=== PATIENT | female | born 1990 | race African-American/Black ===

== ENCOUNTER 2021-03-03 13:30 | Outpatient (RCR) | payer OTHER, SELFPAY ==
--- NOTE | 2020-05-13 17:00 | PT.OIE ---
Current Diagnoses Other specified disorders of muscle (05/13/20) Stress incontinence (female) (male) (05/13/20) Abnormal posture (05/13/20) Past Medical History (Last Updated 01/30/20 @ 09:35 by Abdelrahman Palumbo MD) (Acute) SIMONA (stress urinary incontinence, female) (Acute) Visit Care Team Role Provider Type Amy Sanchez DO Primary Care Provider Physician Specialty: Family Practice Address: [address] [place] [address], [address], [address] Email: [email or web address] Abdelrahman Palumbo MD Attending Provider Physician Referring Provider Specialty: HIM SPECIALIST Address: [address] [place] [address], [id number] Email: [email or web address] Physical Therapy Initial Evaluation PT-OP-A Visit Information Start: 05/09/20 21:10 Freq: Status: Active Protocol: Document 05/13/20 08:57 LRN (Rec: 05/13/20 09:52 LRN [id number]) Out-Patient Physical Therapy Visit Information Visit Information Visit Type Initial Evaluation Visit Start Time 08:57 Visit Stop Time 09:52 Total Visit Minutes 55 Visit Number 1 Evaluation Information Evaluation Date 05/13/20 Precautions Precautions None PT-OP-B Current Condition Start: 05/09/20 21:10 Freq: Status: Active Protocol: Document 05/13/20 08:57 LRN (Rec: 05/13/20 09:52 LRN [id number]) Current Condition History of Current Condition Onset Date 06/2018 History of Current Condition Childbirth of son in 04/2018 with a lot of tearing. Currently notices leakage with strong urge while trying to get into her house and after running. Sometimes she leaks during running, but mainly immediately afterwards. She is running 2x/week for 2-3 miles (1/2 hour). Was occasionally running before (2-3x/month, 1-2 miles). Denies constipation and denies leakage with cough or sneeze or activity when no urge is present. Leakage only with strong urge, Prior Treatments and Tests None Developmental History Developmental History See above Treatment Goals Patient/Caregiver Goals Goal is to have more control of her urine and to not wet underwear when trying to control urine. Prior Functional Status Baseline Function- ADL's Independent Baseline Function- Mobility Independent Baseline Function- Recreation/Hobbies Ran 2-3x/month, 1-2 mile runs. Current Functional Impairments (Reported) Functional Limitations- ADL's Unable to control urine with a strong urge. 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 Functional Limitations- Recreation/ Trickle of urinary leakage Hobbies during running and not able to maintain continence after running or if drinking water after running. 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 Stopped 2 weeks ago, milk production still present. PT-OP-C Subjective Start: 05/09/20 21:10 Freq: Status: Active Protocol: Document 05/13/20 08:57 LRN (Rec: 05/13/20 18:37 LRN [id number]) Patient Questionnaires Pelvic Pain and Urgency/Frequency Patient Symptom Scale Pelvic Pain Score 8 PT-OP-G Mobility & Gait Start: 05/09/20 21:10 Freq: Status: Active Protocol: Document 05/13/20 08:57 LRN (Rec: 05/13/20 18:37 LRN [id number]) OP Mobility Evaluation Transfers Bed to Chair Transfers Transfers to supine by lying straight back and to sitting by a sit up motion. PT-OP-I Pelvic Floor Start: 05/09/20 21:10 Freq: Status: Active Protocol: Document 05/13/20 08:57 LRN (Rec: 05/13/20 18:37 LRN [id number]) Pelvic Floor Assessment Urine Pelvic Floor Surgery Yes: For tearing of PF during childbirth 04/2018. Urinary Symptoms Urge Sensation Other Urinary Symptoms Strains to pass urine. Leakage Size Large Leakage Cause Exercise Other Leakage Causes Running, water after a long drive or walk or run. Leaks Per Day 8-10 Voiding Frequency 8-10 times per day Nocturia 1-2 times Pads Used In 24 Hours none Bowel Bowel Surgery No: Denies constipation Bowel Symptoms Uncontrolled Flatulence Pelvic Clock Pelvic Clock 12-3 Atrophy Pelvic Clock 3-6 Atrophy Pelvic Clock 6-9 Atrophy Pelvic Clock 9-12 Atrophy Pelvic Clock Other Lift felt in L vaginal wall only Perineal Descent Resting Absent Bearing Absent Contraction Ability Voluntary Contraction Weak Manual Muscle Testing Left 2 Manual Muscle Testing Right 0 Manual Muscle Testing Anterior 0 Manual Muscle Testing Posterior 1 Muscle Endurance (Seconds) 5 Number of Quick Contractions In 10 2 Seconds Comments Pelvic Floor Comments Plump tissues, mildly dry. PT-OP-J Posture/Palpation/Skin Start: 05/09/20 21:10 Freq: Status: Active Protocol: Document 05/13/20 08:57 LRN (Rec: 05/13/20 18:37 LRN [id number]) Posture Evaluation Position Standing Evaluation View All positions Head/C-Spine Posture Side Bent Left L-Spine Posture Rotation Right,Increased Lordosis Shoulder Posture (L) Elevated Pelvis Posture Anteriorly Tilted Knee Posture (L) Genu Valgus,(R) Genu Valgus Foot Arch (L) No Arch,(R) No Arch PT-OP-K Range of Motion Start: 05/09/20 21:10 Freq: Status: Active Protocol: Document 05/13/20 08:57 LRN (Rec: 05/13/20 09:52 LRN [id number]) Lumbar Spine Range of Motion Lumbar Spine Active Percentage Testing Position Standing Hip Goniometric Range of Motion Hip Right Passive Testing Position Supine Flexion w/Knee Flexed 130 Straight Leg Raise 75 Abduction 35 Internal Rotation 30 External Rotation 73 Left Passive Testing Position Supine Flexion w/Knee Flexed 130 Straight Leg Raise 75 Abduction 45 Internal Rotation 30 External Rotation 80 PT-OP-M Strength Start: 05/09/20 21:10 Freq: Status: Active Protocol: Document 05/13/20 08:57 LRN (Rec: 05/13/20 18:37 LRN [id number]) Trunk Strength Trunk Manual Muscle Testing Testing Position Supine Rotation Right 3- Fair- Core Stabilization Pt shows reduced ability to maintain neutral core with MMT of L hip flexion. Hip Strength Hip Manual Muscle Testing Right Adduction 4- Good- External Rotation 4 Good Internal Rotation 3 Fair Left Flexion (L2) 4+ Good+ Adduction 3+ Fair+ External Rotation 4 Good Internal Rotation 3 Fair PT-OP-Q Treatments Start: 05/09/20 21:10 Freq: Status: Active Protocol: Document 05/13/20 08:57 LRN (Rec: 05/13/20 09:52 LR [id number]) Self-Care/Home Management Treatment Education Patient Education Home Exercise Program,Joint Protection Other Education Discussed results of findings with pt and discussed pt goals . Issued Bladder Diary. Discussed use of Bladder Diary and I/S pt in filling diary over the next week. Discussed running activity and recommended pt hold running for walking. Discussed effects on the body of hormonal changes while pt is producing breastmilk. Discussed shoe wear briefly. Education in PF with model used Activities Self-Care/Home Management Activities Pt issued HEP of Kegel ex's for Quick Flicks and Long holds after parameters for exercise determined. PT-OP-T Assessment and Plan Start: 05/09/20 21:10 Freq: Status: Active Protocol: Document 05/13/20 08:57 LRN (Rec: 05/13/20 09:52 LR [id number]) Physical Therapy Assessment Rehab Potential Rehabilitation Potential Good Evaluation Complexity Number of Personal Factors/Comorbidities 1-2 Number of Body Systems Impaired 4 or More Clinical Presentation at Evaluation Evolving Impairments Impairments Activity Tolerance,Posture,ROM ,Soft Tissue Mobility,Strength ,Tone Other Impairments Hormonal changes due to . Goals Six Impairment Poor knowledge of proper transfers and clothing wear to minimize UI. Short Term Goal (STG) Pt will be educated in proper transfers and clothing to minimize onset of Urinary Incontinence. STG Duration 05/21/20 Five Impairment Decreased PF endurance of 5 sec's in supine Drosophere Operator Goal (LTG) Improve PF endurance to 10 sec 's in supine. LTG Duration 07/26/20 Four Impairment Decreased PF strength rated 2/ 5 in supine Drosophere Operator Goal (LTG) Improve PF strength to 3/5 in supine. LTG Duration 07/26/20 Three Impairment Poor core stability due to severe Diastasis Rectus. Short Term Goal (STG) Pt will be educated in proper transfers and use of K-tape to assist with DR closure through self management. Drosophere Operator Goal (LTG) Pt will demonstrate reduced DR and will be able to perform an automatic and on command TA contraction. (DR: Above umbilicus: 5 above is closed at Xyphoid Process; 4 above is 1.5 finger widths; 3 above is 2.5 finger widths, 2 above is 3 finger widths, 1 above is 3.t finger widths. Below umbilicus: 4 is closed; 3 0. 5 finger widths; 2 is 2.5 finger widths; 1 is 3.5 finger widths). LTG Duration 07/26/20 Two Impairment Poor management of Urge incontinence Short Term Goal (STG) Pt will be educated in Urge incontinence and bladder retraining. Drosophere Operator Goal (LTG) Pt will be able to make it to the bathroom at work and home with minimal to no urinary leakage. LTG Duration 07/26/20 One Impairment Lacks self care HEP Detention Goal (LTG) Pt will be independent with a self care HEP to promote hip and core strength and PF mobility. LTG Duration 07/26/20 Assessment Summary Assessment Pt presents with symtoms of urge incontinence due to PF weakness and poor core stability due to DR & decreased hip strength. The pt is not able to isolate a PF strength and is using substitute muscles to assist with PF strength. The pt will benefit from skilled physical therapy for education, bladder retraining and strengthening to minimize symptoms of urge incontinence. Physical Therapy Plan Frequency and Duration Frequency of Treatment 1x/Week Plan of Care Start Date 05/13/20 Plan of Care End Date 07/26/20 Therapeutic Interventions Therapeutic Interventions Home Exercise Program,Manual Therapy,Neuromuscular Re- education,Patient/Caregiver Education,Self-Care/Home Management,Soft Tissue Mobilization,Taping, Therapeutic Exercises Modalities Electric Stimulation Next Visit Focus/Plan Next Note Type Treatment Note Next Visit Plan Review Bladder Diary Educate in proper deep breathing and urinary delay technique, Educate pt on proper transfers and clothing wear, Educate pt in self K-taping, TA strengthening to prevent doming, HEP for improving hip & TA strength
--- NOTE | 2020-05-13 17:00 | PT.OPPOC ---
Physical, Occupational & Speech Therapy At [facility] Current Diagnoses Other specified disorders of muscle (05/13/20) Stress incontinence (female) (male) (05/13/20) Abnormal posture (05/13/20) Visit Care Team Role Provider Type Amy Sanchez DO Primary Care Provider Physician Specialty: Family Practice Address: [address] [place] [address], [address], [address] Email: [email or web address] Abdelrahman Palumbo MD Attending Provider Physician Referring Provider Specialty: PRISON GUARD SUPERVISOR Address: [address] [place] [address] [place] [address], [id number] Email: [email or web address] Plan Of Care PT-OP-T Assessment and Plan Start: 05/09/20 21:10 Freq: Status: Active Protocol: Document 05/13/20 08:57 LRN (Rec: 05/13/20 09:52 LRN [id number]) Physical Therapy Assessment Rehab Potential Rehabilitation Potential Good Evaluation Complexity Number of Personal Factors/Comorbidities 1-2 Number of Body Systems Impaired 4 or More Clinical Presentation at Evaluation Evolving Impairments Impairments Activity Tolerance,Posture,ROM ,Soft Tissue Mobility,Strength ,Tone Other Impairments Hormonal changes due to . Goals Six Impairment Poor knowledge of proper transfers and clothing wear to minimize UI. Short Term Goal (STG) Pt will be educated in proper transfers and clothing to minimize onset of Urinary Incontinence. STG Duration 05/21/20 Five Impairment Decreased PF endurance of 5 sec's in supine Sampling Theory Teacher Goal (LTG) Improve PF endurance to 10 sec 's in supine. LTG Duration 07/26/20 Four Impairment Decreased PF strength rated 2/ 5 in supine Fpc Goal (LTG) Improve PF strength to 3/5 in supine. LTG Duration 07/26/20 Three Impairment Poor core stability due to severe Diastasis Rectus. Short Term Goal (STG) Pt will be educated in proper transfers and use of K-tape to assist with DR closure through self management. Sampling Theory Teacher Goal (LTG) Pt will demonstrate reduced DR and will be able to perform an automatic and on command TA contraction. (DR: Above umbilicus: 5 above is closed at Xyphoid Process; 4 above is 1.5 finger widths; 3 above is 2.5 finger widths, 2 above is 3 finger widths, 1 above is 3.t finger widths. Below umbilicus: 4 is closed; 3 0. 5 finger widths; 2 is 2.5 finger widths; 1 is 3.5 finger widths). LTG Duration 07/26/20 Two Impairment Poor management of Urge incontinence Short Term Goal (STG) Pt will be educated in Urge incontinence and bladder retraining. Fpc Goal (LTG) Pt will be able to make it to the bathroom at work and home with minimal to no urinary leakage. LTG Duration 07/26/20 One Impairment Lacks self care HEP Sampling Theory Teacher Goal (LTG) Pt will be independent with a self care HEP to promote hip and core strength and PF mobility. LTG Duration 07/26/20 Assessment Summary Assessment Pt presents with symtoms of urge incontinence due to PF weakness and poor core stability due to DR & decreased hip strength. The pt is not able to isolate a PF strength and is using substitute muscles to assist with PF strength. The pt will benefit from skilled physical therapy for education, bladder retraining and strengthening to minimize symptoms of urge incontinence. Physical Therapy Plan Frequency and Duration Frequency of Treatment 1x/Week Plan of Care Start Date 05/13/20 Plan of Care End Date 07/26/20 Therapeutic Interventions Therapeutic Interventions Home Exercise Program,Manual Therapy,Neuromuscular Re- education,Patient/Caregiver Education,Self-Care/Home Management,Soft Tissue Mobilization,Taping, Therapeutic Exercises Modalities Electric Stimulation Next Visit Focus/Plan Next Note Type Treatment Note Next Visit Plan Review Bladder Diary Educate in proper deep breathing and urinary delay technique, Educate pt on proper transfers and clothing wear, Educate pt in self K-taping, TA strengthening to prevent doming, HEP for improving hip & TA strength Plan of Care Dates Plan of Care Start Date 05/13/20 Plan of Care End Date 07/26/20 Electronically Signed by: Lena Myers, PT 05/16/20 [id number] Please Sign and Return: I have reviewed this Plan of Care and certify that the skilled therapy services above are required to meet the patient?s needs. Physician Signature Date Printed Name and Credentials Clinical Instructor Signature Printed Name and Credentials
--- NOTE | 2020-05-20 17:02 | PT.OTN ---
Current Diagnoses Other specified disorders of muscle (05/20/20) Stress incontinence (female) (male) (05/20/20) Abnormal posture (05/20/20) Physical Therapy Treatment Note PT-OP-A Visit Information Start: 05/09/20 21:10 Freq: Status: Active Protocol: Document 05/20/20 10:32 LRN (Rec: 05/20/20 11:21 LRN [id number]) Out-Patient Physical Therapy Visit Information Visit Information Visit Type Treatment Note Visit Start Time 10:32 Visit Stop Time 11:21 Total Visit Minutes 49 Visit Number 2 Evaluation Information Evaluation Date 05/13/20 Precautions Precautions None PT-OP-B Current Condition Start: 05/09/20 21:10 Freq: Status: Active Protocol: Document 05/13/20 08:57 LRN (Rec: 05/13/20 09:52 LRN [id number]) Current Condition History of Current Condition Onset Date 06/2018 History of Current Condition Childbirth of son in 04/2018 with a lot of tearing. Currently notices leakage with strong urge while trying to get into her house and after running. Sometimes she leaks during running, but mainly immediately afterwards. She is running 2x/week for 2-3 miles (1/2 hour). Was occasionally running before (2-3x/month, 1-2 miles). Denies constipation and denies leakage with cough or sneeze or activity when no urge is present. Leakage only with strong urge, Prior Treatments and Tests None Developmental History Developmental History See above Treatment Goals Patient/Caregiver Goals Goal is to have more control of her urine and to not wet underwear when trying to control urine. Prior Functional Status Baseline Function- ADL's Independent Baseline Function- Mobility Independent Baseline Function- Recreation/Hobbies Ran 2-3x/month, 1-2 mile runs. Current Functional Impairments (Reported) Functional Limitations- ADL's Unable to control urine with a strong urge. 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 Functional Limitations- Recreation/ Trickle of urinary leakage Hobbies during running and not able to maintain continence after running or if drinking water after running. 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 Stopped 2 weeks ago, milk production still present. PT-OP-C Subjective Start: 05/09/20 21:10 Freq: Status: Active Protocol: Document 05/20/20 10:32 LRN (Rec: 05/20/20 11:21 LRN [id number]) OP-PT Subjective Patient Comments Patient Comments Delay ex worked, only leaked a little bit, at work or when dealing with son. PT-OP-G Mobility & Gait Start: 05/09/20 21:10 Freq: Status: Active Protocol: Document 05/13/20 08:57 LRN (Rec: 05/13/20 18:37 LRN [id number]) OP Mobility Evaluation Transfers Bed to Chair Transfers Transfers to supine by lying straight back and to sitting by a sit up motion. PT-OP-I Pelvic Floor Start: 05/09/20 21:10 Freq: Status: Active Protocol: Document 05/13/20 08:57 LRN (Rec: 05/13/20 18:37 LRN [id number]) Pelvic Floor Assessment Urine Pelvic Floor Surgery Yes: For tearing of PF during childbirth 04/2018. Urinary Symptoms Urge Sensation Other Urinary Symptoms Strains to pass urine. Leakage Size Large Leakage Cause Exercise Other Leakage Causes Running, water after a long drive or walk or run. Leaks Per Day 8-10 Voiding Frequency 8-10 times per day Nocturia 1-2 times Pads Used In 24 Hours none Bowel Bowel Surgery No: Denies constipation Bowel Symptoms Uncontrolled Flatulence Pelvic Clock Pelvic Clock 12-3 Atrophy Pelvic Clock 3-6 Atrophy Pelvic Clock 6-9 Atrophy Pelvic Clock 9-12 Atrophy Pelvic Clock Other Lift felt in L vaginal wall only Perineal Descent Resting Absent Bearing Absent Contraction Ability Voluntary Contraction Weak Manual Muscle Testing Left 2 Manual Muscle Testing Right 0 Manual Muscle Testing Anterior 0 Manual Muscle Testing Posterior 1 Muscle Endurance (Seconds) 5 Number of Quick Contractions In 10 2 Seconds Comments Pelvic Floor Comments Plump tissues, mildly dry. PT-OP-J Posture/Palpation/Skin Start: 05/09/20 21:10 Freq: Status: Active Protocol: Document 05/13/20 08:57 LRN (Rec: 05/13/20 18:37 LRN [id number]) Posture Evaluation Position Standing Evaluation View All positions Head/C-Spine Posture Side Bent Left L-Spine Posture Rotation Right,Increased Lordosis Shoulder Posture (L) Elevated Pelvis Posture Anteriorly Tilted Knee Posture (L) Genu Valgus,(R) Genu Valgus Foot Arch (L) No Arch,(R) No Arch PT-OP-K Range of Motion Start: 05/09/20 21:10 Freq: Status: Active Protocol: Document 05/13/20 08:57 LRN (Rec: 05/13/20 09:52 LRN [id number]) Lumbar Spine Range of Motion Lumbar Spine Active Percentage Testing Position Standing Hip Goniometric Range of Motion Hip Right Passive Testing Position Supine Flexion w/Knee Flexed 130 Straight Leg Raise 75 Abduction 35 Internal Rotation 30 External Rotation 73 Left Passive Testing Position Supine Flexion w/Knee Flexed 130 Straight Leg Raise 75 Abduction 45 Internal Rotation 30 External Rotation 80 PT-OP-M Strength Start: 05/09/20 21:10 Freq: Status: Active Protocol: Document 05/13/20 08:57 LRN (Rec: 05/13/20 18:37 LRN [id number]) Trunk Strength Trunk Manual Muscle Testing Testing Position Supine Rotation Right 3- Fair- Core Stabilization Pt shows reduced ability to maintain neutral core with MMT of L hip flexion. Hip Strength Hip Manual Muscle Testing Right Adduction 4- Good- External Rotation 4 Good Internal Rotation 3 Fair Left Flexion (L2) 4+ Good+ Adduction 3+ Fair+ External Rotation 4 Good Internal Rotation 3 Fair PT-OP-Q Treatments Start: 05/09/20 21:10 Freq: Status: Active Protocol: Document 05/20/20 10:32 LRN (Rec: 05/20/20 11:21 LRN [id number]) Therapeutic Exercises Supine Exercises TA Supine Exercise Name TA strengthening and awareness training Side bilateral Comments Training w/head lift to identify weakness and when to stop ex Sidelying Exercises TA Sidelying Exercise Name TA strengthening & awareness training Side bilateral Therapeutic Activity Therapeutic Activity Transfer sit <-> supine Name Sit<->Supine with strap for abdominal bracing for DR protection Reps/Minutes 12' Comments Identifying proper method for protection of DR with transfer and use of wrap to abdomen. Self-Care/Home Management Treatment Education Patient Education Home Exercise Program Other Education Reviewed at length pt's Bladder Diary for 7 days. Discussion of daily changes: like increasing fluids and decreasing bladder irritants ( caffeine, carbonated beverages , etc...), breathing with abdominal compression movements, increasing fluids earlier in the day, not delaying when first getting up in mornings. Activities Self-Care/Home Management Activities I/S pt in TA strengthening with handout issued: Pelvic Brace w/Daily Activities, Management of Lower Abdominal Progression, Towel use for head lifts to protect DR. PT-OP-T Assessment and Plan Start: 05/09/20 21:10 Freq: Status: Active Protocol: Document 05/20/20 10:32 LRN (Rec: 05/20/20 11:21 LRN [id number]) Physical Therapy Assessment Goals Six Impairment Poor knowledge of proper transfers and clothing wear to minimize UI. Short Term Goal (STG) Pt will be educated in proper transfers and clothing to minimize onset of Urinary Incontinence. STG Duration 05/21/20 (05/21/20: Partially met, discussed transfers) Five Impairment Decreased PF endurance of 5 sec's in supine Primer Powder Blender Wet Goal (LTG) Improve PF endurance to 10 sec 's in supine. LTG Duration 07/26/20 Four Impairment Decreased PF strength rated 2/ 5 in supine Snf Goal (LTG) Improve PF strength to 3/5 in supine. LTG Duration 07/26/20 Three Impairment Poor core stability due to severe Diastasis Rectus. Short Term Goal (STG) Pt will be educated in proper transfers and use of K-tape to assist with DR closure through self management. STG Duration 05/27/20 (05/20/20: Partially met, educated in proper transfers) Primer Powder Blender Wet Goal (LTG) Pt will demonstrate reduced DR and will be able to perform an automatic and on command TA contraction. (DR: Above umbilicus: 5 above is closed at Xyphoid Process; 4 above is 1.5 finger widths; 3 above is 2.5 finger widths, 2 above is 3 finger widths, 1 above is 3.t finger widths. Below umbilicus: 4 is closed; 3 0. 5 finger widths; 2 is 2.5 finger widths; 1 is 3.5 finger widths). LTG Duration 07/26/20 Two Impairment Poor management of Urge incontinence Short Term Goal (STG) Pt will be educated in Urge incontinence and bladder retraining. STG Duration GOAL MET. Snf Goal (LTG) Pt will be able to make it to the bathroom at work and home with minimal to no urinary leakage. LTG Duration 07/26/20 One Impairment Lacks self care HEP Primer Powder Blender Wet Goal (LTG) Pt will be independent with a self care HEP to promote hip and core strength and PF mobility. LTG Duration 07/26/20 (05/20/20: Progressing) Progress Towards Goals Progress Comments Goal 1: Progressing, issue HEP for TA strengthening. Goal 2: STG: GOAL MET for educating pt in urge deference techinque. Goal 3: STG: Partially MET. Pt educated in proper sup<-> sit transfer to protect DR/ Core stability. Goal 6: Partially MET. Pt educated in proper sup <-> sit transfers. Assessment Summary Assessment Pt demonstrates very good deep breathing technique. She shows good understanding of proper transfer to protect DR using towel/strap support. Further review needed for sit/ floor to stand. Per Bladder Diary it appears the pt has small leaks first in AM due to choosing to engage with child before voiding and with intake of bladder irritants ( coffee), but overall shows voiding ~2-4 hours, usually with urge. She is now able to avoid a majority of urinary leakage using the urge deference technique. Clothing may be restrictive as well as poor breathwork may be contributing to her UI. Further protection of DR needed, possible use of K-tape will be helpful although pt is still . Physical Therapy Plan Frequency and Duration Frequency of Treatment 1x/Week Plan of Care Start Date 05/13/20 Plan of Care End Date 07/26/20 Next Visit Focus/Plan Next Note Type Treatment Note Next Visit Plan Review proper transfer sit/ floor <-> stand with proper breathwork Educate pt on proper clothing wear (for STG #6), EMG biofeedback was not available during therapy; therefore will need to assess next treatment, Educate pt in self K-taping, TA strengthening progression to prevent doming, HEP for improving hip & TA strength
--- NOTE | 2020-05-27 18:11 | PT.OTN ---
Current Diagnoses Other specified disorders of muscle (06/17/20) Stress incontinence (female) (male) (06/17/20) Abnormal posture (06/17/20) Physical Therapy Treatment Note PT-OP-A Visit Information Start: 05/09/20 21:10 Freq: Status: Active Protocol: Document 06/18/20 10:39 LRN (Rec: 05/27/20 11:19 LRN [id number]) Out-Patient Physical Therapy Visit Information Visit Information Visit Type Treatment Note Visit Start Time 10:39 Visit Stop Time 11:17 Total Visit Minutes 38 Visit Number 8 Evaluation Information Evaluation Date 05/13/20 Precautions Precautions None PT-OP-B Current Condition Start: 05/09/20 21:10 Freq: Status: Active Protocol: Document 05/13/20 08:57 LRN (Rec: 05/13/20 09:52 LRN [id number]) Current Condition History of Current Condition Onset Date 06/2018 History of Current Condition Childbirth of son in 04/2018 with a lot of tearing. Currently notices leakage with strong urge while trying to get into her house and after running. Sometimes she leaks during running, but mainly immediately afterwards. She is running 2x/week for 2-3 miles (1/2 hour). Was occasionally running before (2-3x/month, 1-2 miles). Denies constipation and denies leakage with cough or sneeze or activity when no urge is present. Leakage only with strong urge, Prior Treatments and Tests None Developmental History Developmental History See above Treatment Goals Patient/Caregiver Goals Goal is to have more control of her urine and to not wet underwear when trying to control urine. Prior Functional Status Baseline Function- ADL's Independent Baseline Function- Mobility Independent Baseline Function- Recreation/Hobbies Ran 2-3x/month, 1-2 mile runs. Current Functional Impairments (Reported) Functional Limitations- ADL's Unable to control urine with a strong urge. 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 Functional Limitations- Recreation/ Trickle of urinary leakage Hobbies during running and not able to maintain continence after running or if drinking water after running. 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 Stopped 2 weeks ago, milk production still present. PT-OP-C Subjective Start: 05/09/20 21:10 Freq: Status: Active Protocol: Document 06/18/20 10:39 LRN (Rec: 05/27/20 11:19 LRN [id number]) OP-PT Subjective Patient Comments Patient Comments Getting better. Avoiding caffeine. Leaking when waiting too long. This past week 3-4 times leaked when gettin home. PT-OP-G Mobility & Gait Start: 05/09/20 21:10 Freq: Status: Active Protocol: Document 05/13/20 08:57 LRN (Rec: 05/13/20 18:37 LRN [id number]) OP Mobility Evaluation Transfers Bed to Chair Transfers Transfers to supine by lying straight back and to sitting by a sit up motion. PT-OP-I Pelvic Floor Start: 05/09/20 21:10 Freq: Status: Active Protocol: Document 06/17/20 10:36 LRN (Rec: 06/17/20 18:17 LRN [id number]) Pelvic Floor Assessment Pelvic Clock Pelvic Clock 6-9 Tenderness Contraction Ability Manual Muscle Testing Left 1 Manual Muscle Testing Right 2 Manual Muscle Testing Anterior 0 Manual Muscle Testing Posterior 3 Muscle Endurance (Seconds) 10 Number of Quick Contractions In 10 8 Seconds PT-OP-J Posture/Palpation/Skin Start: 05/09/20 21:10 Freq: Status: Active Protocol: Document 05/13/20 08:57 LRN (Rec: 05/13/20 18:37 LRN [id number]) Posture Evaluation Position Standing Evaluation View All positions Head/C-Spine Posture Side Bent Left L-Spine Posture Rotation Right,Increased Lordosis Shoulder Posture (L) Elevated Pelvis Posture Anteriorly Tilted Knee Posture (L) Genu Valgus,(R) Genu Valgus Foot Arch (L) No Arch,(R) No Arch PT-OP-K Range of Motion Start: 05/09/20 21:10 Freq: Status: Active Protocol: Document 06/17/20 10:36 LRN (Rec: 06/17/20 18:21 LRN [id number]) Hip Goniometric Range of Motion Hip Right Passive Testing Position Supine Internal Rotation 25 External Rotation 75 Left Passive Testing Position Supine Internal Rotation 40 External Rotation 80 PT-OP-M Strength Start: 05/09/20 21:10 Freq: Status: Active Protocol: Document 05/13/20 08:57 LRN (Rec: 05/13/20 18:37 LRN [id number]) Trunk Strength Trunk Manual Muscle Testing Testing Position Supine Rotation Right 3- Fair- Core Stabilization Pt shows reduced ability to maintain neutral core with MMT of L hip flexion. Hip Strength Hip Manual Muscle Testing Right Adduction 4- Good- External Rotation 4 Good Internal Rotation 3 Fair Left Flexion (L2) 4+ Good+ Adduction 3+ Fair+ External Rotation 4 Good Internal Rotation 3 Fair PT-OP-Q Treatments Start: 05/09/20 21:10 Freq: Status: Active Protocol: Document 06/18/20 10:39 LRN (Rec: 05/27/20 18:07 LRN [id number]) Therapeutic Exercises Supine Exercises TA Supine Exercise Name TA strengthening and awareness training Side bilateral Sidelying Exercises TA Sidelying Exercise Name TA strengthening & awareness training Side bilateral Reps/Minutes 10 hold x 10 Therapeutic Activity Therapeutic Activity Transfer sit <-> supine Name Sit<->Supine with strap for abdominal bracing for DR protection Reps/Minutes 3' Comments Identifying proper method for protection of DR with transfer . Pt wearing lumbar support. Self-Care/Home Management Treatment Education Patient Education Home Exercise Program Other Education Educated pt in appropriate clothing wear to minimize pressure on abdomen to promote urinary continence. Activities Self-Care/Home Management Activities Discussed and educated pt at length in bladder retraining. Handouts issued for delay technique and log addressing all areas of concern (TA, PF strengthening, fluid intake, etc). Discussed start/end times, and hours between voids . Discussed modification to routines to prevent remaining small urinary leakage when returning home. PT-OP-T Assessment and Plan Start: 05/09/20 21:10 Freq: Status: Active Protocol: Document 06/18/20 10:39 LRN (Rec: 05/27/20 18:07 LRN [id number]) Physical Therapy Assessment Goals Six Impairment Poor knowledge of proper transfers and clothing wear to minimize UI. Short Term Goal (STG) Pt will be educated in proper transfers and clothing to minimize onset of Urinary Incontinence. STG Duration 05/21/20 (05/27/20: MET GOAL) Five Impairment Decreased PF endurance of 5 sec's in supine Prison Goal (LTG) Improve PF endurance to 10 sec 's in supine. LTG Duration 07/26/20 Four Impairment Decreased PF strength rated 2/ 5 in supine Prison Goal (LTG) Improve PF strength to 3/5 in supine. LTG Duration 07/26/20 Three Impairment Poor core stability due to severe Diastasis Rectus. Short Term Goal (STG) Pt will be educated in proper transfers and use of K-tape to assist with DR closure through self management. STG Duration 05/27/20 (05/20/20: Partially met, educated in proper transfers) Sales Representative Door To Door Goal (LTG) Pt will demonstrate reduced DR and will be able to perform an automatic and on command TA contraction. (DR: Above umbilicus: 5 above is closed at Xyphoid Process; 4 above is 1.5 finger widths; 3 above is 2.5 finger widths, 2 above is 3 finger widths, 1 above is 3.t finger widths. Below umbilicus: 4 is closed; 3 0. 5 finger widths; 2 is 2.5 finger widths; 1 is 3.5 finger widths). LTG Duration 07/26/20 Two Impairment Poor management of Urge incontinence Short Term Goal (STG) Pt will be educated in Urge incontinence and bladder retraining. STG Duration GOAL MET. Prison Goal (LTG) Pt will be able to make it to the bathroom at work and home with minimal to no urinary leakage. (05/27/20: Pt having small leaks once home). LTG Duration 07/26/20 (05/27/20: Goal partially met) One Impairment Lacks self care HEP Prison Goal (LTG) Pt will be independent with a self care HEP to promote hip and core strength and PF mobility. LTG Duration 07/26/20 (05/20/20: Progressing) Assessment Summary Assessment Pt not yet transferring properly sit to supine, but demonstrated good knowledge after review. Pt having small urinary leakage coming home from work that could be controlled with urinating before leaving work, will review next visit. Pt voiding every 3 hrs and would like to retrain bladder to eliminate nighttime voids and extend times between voids to 4 hrs. Physical Therapy Plan Frequency and Duration Frequency of Treatment 1x/Week Plan of Care Start Date 05/13/20 Plan of Care End Date 07/26/20 Next Visit Focus/Plan Next Note Type Treatment Note Next Visit Plan Review proper transfer sit/ floor <-> stand with proper breathwork, EMG biofeedback assessment, Educate pt in self K-taping, TA strengthening progression to prevent doming, HEP for improving hip & TA strength
--- NOTE | 2020-06-07 17:10 | PT.OTN ---
Current Diagnoses Other specified disorders of muscle (06/07/20) Stress incontinence (female) (male) (06/07/20) Abnormal posture (06/07/20) Physical Therapy Treatment Note PT-OP-A Visit Information Start: 05/09/20 21:10 Freq: Status: Active Protocol: Document 06/07/20 09:47 LRN (Rec: 06/07/20 10:34 LRN [id number]) Out-Patient Physical Therapy Visit Information Visit Information Visit Type Treatment Note Visit Start Time 09:47 Visit Stop Time 10:34 Total Visit Minutes 47 Visit Number 9 Evaluation Information Evaluation Date 05/13/20 Precautions Precautions None PT-OP-B Current Condition Start: 05/09/20 21:10 Freq: Status: Active Protocol: Document 05/13/20 08:57 LRN (Rec: 05/13/20 09:52 LRN [id number]) Current Condition History of Current Condition Onset Date 06/2018 History of Current Condition Childbirth of son in 04/2018 with a lot of tearing. Currently notices leakage with strong urge while trying to get into her house and after running. Sometimes she leaks during running, but mainly immediately afterwards. She is running 2x/week for 2-3 miles (1/2 hour). Was occasionally running before (2-3x/month, 1-2 miles). Denies constipation and denies leakage with cough or sneeze or activity when no urge is present. Leakage only with strong urge, Prior Treatments and Tests None Developmental History Developmental History See above Treatment Goals Patient/Caregiver Goals Goal is to have more control of her urine and to not wet underwear when trying to control urine. Prior Functional Status Baseline Function- ADL's Independent Baseline Function- Mobility Independent Baseline Function- Recreation/Hobbies Ran 2-3x/month, 1-2 mile runs. Current Functional Impairments (Reported) Functional Limitations- ADL's Unable to control urine with a strong urge. 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 Functional Limitations- Recreation/ Trickle of urinary leakage Hobbies during running and not able to maintain continence after running or if drinking water after running. 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 Stopped 2 weeks ago, milk production still present. PT-OP-C Subjective Start: 05/09/20 21:10 Freq: Status: Active Protocol: Document 06/07/20 09:47 LRN (Rec: 06/07/20 10:34 LRN [id number]) OP-PT Subjective Patient Comments Patient Comments 2 leaks. Made it to bathroom but as pulling down pants leaked a little. Has been drinking more water and was laughing and a little leakage. PT-OP-G Mobility & Gait Start: 05/09/20 21:10 Freq: Status: Active Protocol: Document 05/13/20 08:57 LRN (Rec: 05/13/20 18:37 LRN [id number]) OP Mobility Evaluation Transfers Bed to Chair Transfers Transfers to supine by lying straight back and to sitting by a sit up motion. PT-OP-I Pelvic Floor Start: 05/09/20 21:10 Freq: Status: Active Protocol: Document 05/13/20 08:57 LRN (Rec: 05/13/20 18:37 LRN [id number]) Pelvic Floor Assessment Urine Pelvic Floor Surgery Yes: For tearing of PF during childbirth 04/2018. Urinary Symptoms Urge Sensation Other Urinary Symptoms Strains to pass urine. Leakage Size Large Leakage Cause Exercise Other Leakage Causes Running, water after a long drive or walk or run. Leaks Per Day 8-10 Voiding Frequency 8-10 times per day Nocturia 1-2 times Pads Used In 24 Hours none Bowel Bowel Surgery No: Denies constipation Bowel Symptoms Uncontrolled Flatulence Pelvic Clock Pelvic Clock 12-3 Atrophy Pelvic Clock 3-6 Atrophy Pelvic Clock 6-9 Atrophy Pelvic Clock 9-12 Atrophy Pelvic Clock Other Lift felt in L vaginal wall only Perineal Descent Resting Absent Bearing Absent Contraction Ability Voluntary Contraction Weak Manual Muscle Testing Left 2 Manual Muscle Testing Right 0 Manual Muscle Testing Anterior 0 Manual Muscle Testing Posterior 1 Muscle Endurance (Seconds) 5 Number of Quick Contractions In 10 2 Seconds Comments Pelvic Floor Comments Plump tissues, mildly dry. PT-OP-J Posture/Palpation/Skin Start: 05/09/20 21:10 Freq: Status: Active Protocol: Document 05/13/20 08:57 LRN (Rec: 05/13/20 18:37 LRN [id number]) Posture Evaluation Position Standing Evaluation View All positions Head/C-Spine Posture Side Bent Left L-Spine Posture Rotation Right,Increased Lordosis Shoulder Posture (L) Elevated Pelvis Posture Anteriorly Tilted Knee Posture (L) Genu Valgus,(R) Genu Valgus Foot Arch (L) No Arch,(R) No Arch PT-OP-K Range of Motion Start: 05/09/20 21:10 Freq: Status: Active Protocol: Document 05/13/20 08:57 LRN (Rec: 05/13/20 09:52 LRN [id number]) Lumbar Spine Range of Motion Lumbar Spine Active Percentage Testing Position Standing Hip Goniometric Range of Motion Hip Right Passive Testing Position Supine Flexion w/Knee Flexed 130 Straight Leg Raise 75 Abduction 35 Internal Rotation 30 External Rotation 73 Left Passive Testing Position Supine Flexion w/Knee Flexed 130 Straight Leg Raise 75 Abduction 45 Internal Rotation 30 External Rotation 80 PT-OP-M Strength Start: 05/09/20 21:10 Freq: Status: Active Protocol: Document 05/13/20 08:57 LRN (Rec: 05/13/20 18:37 LRN [id number]) Trunk Strength Trunk Manual Muscle Testing Testing Position Supine Rotation Right 3- Fair- Core Stabilization Pt shows reduced ability to maintain neutral core with MMT of L hip flexion. Hip Strength Hip Manual Muscle Testing Right Adduction 4- Good- External Rotation 4 Good Internal Rotation 3 Fair Left Flexion (L2) 4+ Good+ Adduction 3+ Fair+ External Rotation 4 Good Internal Rotation 3 Fair PT-OP-Q Treatments Start: 05/09/20 21:10 Freq: Status: Active Protocol: Document 06/07/20 09:47 LRN (Rec: 06/07/20 10:34 LRN [id number]) Therapeutic Exercises Supine Exercises Hip flexor stretch Supine Exercise Name Arfy test position at end of plinth for Psoas and Ileum stretch Side bilateral Reps/Minutes 60 holds Comments Xtra time for finding appropriate positioning for both stretches. Sidelying Exercises Reverse Clam Sidelying Exercise Name Knees bent 45 deg's, lifting top foot w/o & w/PF contraction Side bilateral Reps/Minutes 4' Comments Training & cuing for TA stab to prevent trunk rot, & breath work. Sitting Exercises Trunk rotation Sitting Exercise Name Active trunk rotation w/proper breathwork Reps/Minutes 3' Standing Exercises PF strengthening/HS stretch Standing Exercise Name Active Hamstring stretch position, knees/feet rotated in and out Reps/Minutes 6' PF awareness training Standing Exercise Name Active Hamstring stretch > upright positioning Side bilateral Reps/Minutes 8' Comments Took multiple times for pt to become aware of anterior PF contraction. Active Hamstring stretch Standing Exercise Name Active Hamstring stretch w/o & w/PF contraction Side bilateral Reps/Minutes 4' Comments Working on breathwork, proper stretch and with PF contraction. Other Exercises 4-pt Other Exercise Name TA contraction w/o & w/PF contraction Reps/Minutes 5 hold x 12 Comments Xtra time for cuing for lower TA contraction, proper breathwork. Therapeutic Activity Therapeutic Activity Transfer sit <-> supine Name Sit<->Supine with proper breathwork Reps/Minutes 2' Comments Identifying proper breathing for transfer and reviewed protection of DR with transfer . Pt wearing lumbar support. Manual Therapy Treatment Taping K-tape Body Location Abdomen Treatment Focus Correction of Diastasis Rectus Type of Tape Kinesio Tape Skin Inspection Good Self-Care/Home Management Treatment Education Patient Education Home Exercise Program Activities Self-Care/Home Management Activities Issued, reviewed & HEP: 4 pt TA strengthening; Supine Iliopsoas stretch; Sidelie reverse clamshell, Sitting active trunk rotation, Standing Active Hamstring stretch. PT-OP-T Assessment and Plan Start: 05/09/20 21:10 Freq: Status: Active Protocol: Document 06/07/20 09:47 LRN (Rec: 06/07/20 10:34 LRN [id number]) Physical Therapy Assessment Goals Six Impairment Poor knowledge of proper transfers and clothing wear to minimize UI. Short Term Goal (STG) Pt will be educated in proper transfers and clothing to minimize onset of Urinary Incontinence. STG Duration 05/21/20 (05/27/20: MET GOAL) Five Impairment Decreased PF endurance of 5 sec's in supine Semiconductor Equipment Technician Goal (LTG) Improve PF endurance to 10 sec 's in supine. LTG Duration 07/26/20 Four Impairment Decreased PF strength rated 2/ 5 in supine Nursing Home Goal (LTG) Improve PF strength to 3/5 in supine. LTG Duration 07/26/20 Three Impairment Poor core stability due to severe Diastasis Rectus. Short Term Goal (STG) Pt will be educated in proper transfers and use of K-tape to assist with DR closure through self management. STG Duration 05/27/20 (05/20/20: Partially met, educated in proper transfers) Semiconductor Equipment Technician Goal (LTG) Pt will demonstrate reduced DR and will be able to perform an automatic and on command TA contraction. (DR: Above umbilicus: 5 above is closed at Xyphoid Process; 4 above is 1.5 finger widths; 3 above is 2.5 finger widths, 2 above is 3 finger widths, 1 above is 3.t finger widths. Below umbilicus: 4 is closed; 3 0. 5 finger widths; 2 is 2.5 finger widths; 1 is 3.5 finger widths). LTG Duration 07/26/20 Two Impairment Poor management of Urge incontinence Short Term Goal (STG) Pt will be educated in Urge incontinence and bladder retraining. STG Duration GOAL MET. Nursing Home Goal (LTG) Pt will be able to make it to the bathroom at work and home with minimal to no urinary leakage. (05/27/20: Pt having small leaks once home). LTG Duration 07/26/20 (05/27/20: Goal partially met) One Impairment Lacks self care HEP Semiconductor Equipment Technician Goal (LTG) Pt will be independent with a self care HEP to promote hip and core strength and PF mobility. LTG Duration 07/26/20 (06/07/20: Progressing) Progress Towards Goals Progress Towards Goals Progressing Toward Goals Progress Comments Added to pt's HEP: Hip ROM and core strengthening with addition of PF strengthening with ex's. Assessment Summary Assessment Pt urinary leaking with lauging and after holding to get to bathroom. Pt appears to have a good understanding of new home exercises but will need to review on return. Pt doesn't appear to be too interested in self K-taping, but will need to check with pt . Physical Therapy Plan Frequency and Duration Frequency of Treatment 1x/Week Plan of Care Start Date 05/13/20 Plan of Care End Date 07/26/20 Next Visit Focus/Plan Next Note Type Treatment Note Next Visit Plan Review proper transfer floor < -> stand with proper breathwork, Review previously issued HEP, HEP for improving hip AD, IR's , & TA, strength HEP to improve Huang: Hamstrings & IR, & right: AB & ER range of motion EMG biofeedback assessment, Assess response to K-tape and educate pt in self taping if pt chooses, Progress TA strengthening of roll in/outs to prevent doming
--- NOTE | 2020-06-14 11:05 | PT.OTN ---
Current Diagnoses Other specified disorders of muscle (06/14/20) Stress incontinence (female) (male) (06/14/20) Abnormal posture (06/14/20) Physical Therapy Treatment Note PT-OP-A Visit Information Start: 05/09/20 21:10 Freq: Status: Active Protocol: Document 06/14/20 09:09 LRN (Rec: 06/14/20 09:58 LRN [id number]) Out-Patient Physical Therapy Visit Information Visit Information Visit Type Treatment Note Visit Start Time 09:09 Visit Stop Time 09:54 Total Visit Minutes 45 Visit Number 10 Evaluation Information Evaluation Date 05/13/20 Precautions Precautions None PT-OP-B Current Condition Start: 05/09/20 21:10 Freq: Status: Active Protocol: Document 05/13/20 08:57 LRN (Rec: 05/13/20 09:52 LRN [id number]) Current Condition History of Current Condition Onset Date 06/2018 History of Current Condition Childbirth of son in 04/2018 with a lot of tearing. Currently notices leakage with strong urge while trying to get into her house and after running. Sometimes she leaks during running, but mainly immediately afterwards. She is running 2x/week for 2-3 miles (1/2 hour). Was occasionally running before (2-3x/month, 1-2 miles). Denies constipation and denies leakage with cough or sneeze or activity when no urge is present. Leakage only with strong urge, Prior Treatments and Tests None Developmental History Developmental History See above Treatment Goals Patient/Caregiver Goals Goal is to have more control of her urine and to not wet underwear when trying to control urine. Prior Functional Status Baseline Function- ADL's Independent Baseline Function- Mobility Independent Baseline Function- Recreation/Hobbies Ran 2-3x/month, 1-2 mile runs. Current Functional Impairments (Reported) Functional Limitations- ADL's Unable to control urine with a strong urge. 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 Functional Limitations- Recreation/ Trickle of urinary leakage Hobbies during running and not able to maintain continence after running or if drinking water after running. 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 Stopped 2 weeks ago, milk production still present. PT-OP-C Subjective Start: 05/09/20 21:10 Freq: Status: Active Protocol: Document 06/14/20 09:09 LRN (Rec: 06/14/20 09:58 LRN [id number]) OP-PT Subjective Patient Comments Patient Comments No leaks this week. Drinking more water but urinating more. PT-OP-G Mobility & Gait Start: 05/09/20 21:10 Freq: Status: Active Protocol: Document 05/13/20 08:57 LRN (Rec: 05/13/20 18:37 LRN [id number]) OP Mobility Evaluation Transfers Bed to Chair Transfers Transfers to supine by lying straight back and to sitting by a sit up motion. PT-OP-I Pelvic Floor Start: 05/09/20 21:10 Freq: Status: Active Protocol: Document 05/13/20 08:57 LRN (Rec: 05/13/20 18:37 LRN [id number]) Pelvic Floor Assessment Urine Pelvic Floor Surgery Yes: For tearing of PF during childbirth 04/2018. Urinary Symptoms Urge Sensation Other Urinary Symptoms Strains to pass urine. Leakage Size Large Leakage Cause Exercise Other Leakage Causes Running, water after a long drive or walk or run. Leaks Per Day 8-10 Voiding Frequency 8-10 times per day Nocturia 1-2 times Pads Used In 24 Hours none Bowel Bowel Surgery No: Denies constipation Bowel Symptoms Uncontrolled Flatulence Pelvic Clock Pelvic Clock 12-3 Atrophy Pelvic Clock 3-6 Atrophy Pelvic Clock 6-9 Atrophy Pelvic Clock 9-12 Atrophy Pelvic Clock Other Lift felt in L vaginal wall only Perineal Descent Resting Absent Bearing Absent Contraction Ability Voluntary Contraction Weak Manual Muscle Testing Left 2 Manual Muscle Testing Right 0 Manual Muscle Testing Anterior 0 Manual Muscle Testing Posterior 1 Muscle Endurance (Seconds) 5 Number of Quick Contractions In 10 2 Seconds Comments Pelvic Floor Comments Plump tissues, mildly dry. PT-OP-J Posture/Palpation/Skin Start: 05/09/20 21:10 Freq: Status: Active Protocol: Document 05/13/20 08:57 LRN (Rec: 05/13/20 18:37 LRN [id number]) Posture Evaluation Position Standing Evaluation View All positions Head/C-Spine Posture Side Bent Left L-Spine Posture Rotation Right,Increased Lordosis Shoulder Posture (L) Elevated Pelvis Posture Anteriorly Tilted Knee Posture (L) Genu Valgus,(R) Genu Valgus Foot Arch (L) No Arch,(R) No Arch PT-OP-K Range of Motion Start: 05/09/20 21:10 Freq: Status: Active Protocol: Document 05/13/20 08:57 LRN (Rec: 05/13/20 09:52 LRN [id number]) Lumbar Spine Range of Motion Lumbar Spine Active Percentage Testing Position Standing Hip Goniometric Range of Motion Hip Right Passive Testing Position Supine Flexion w/Knee Flexed 130 Straight Leg Raise 75 Abduction 35 Internal Rotation 30 External Rotation 73 Left Passive Testing Position Supine Flexion w/Knee Flexed 130 Straight Leg Raise 75 Abduction 45 Internal Rotation 30 External Rotation 80 PT-OP-M Strength Start: 05/09/20 21:10 Freq: Status: Active Protocol: Document 05/13/20 08:57 LRN (Rec: 05/13/20 18:37 LRN [id number]) Trunk Strength Trunk Manual Muscle Testing Testing Position Supine Rotation Right 3- Fair- Core Stabilization Pt shows reduced ability to maintain neutral core with MMT of L hip flexion. Hip Strength Hip Manual Muscle Testing Right Adduction 4- Good- External Rotation 4 Good Internal Rotation 3 Fair Left Flexion (L2) 4+ Good+ Adduction 3+ Fair+ External Rotation 4 Good Internal Rotation 3 Fair PT-OP-Q Treatments Start: 05/09/20 21:10 Freq: Status: Active Protocol: Document 06/14/20 09:09 LRN (Rec: 06/14/20 09:58 LRN [id number]) Therapeutic Exercises Supine Exercises Knee out/TA Supine Exercise Name Knee out w/TA 10 sec hold/PF contraction Side bilateral Reps/Minutes 3' Comments Training in proper performance of ex & I/S to progress to 1 knee out w/TA Hip flexor stretch Supine Exercise Name Rafy test position at end of plinth for Psoas and Ileum stretch Side bilateral Reps/Minutes 60 holds plus active stretch Sidelying Exercises Reverse Clam Sidelying Exercise Name TA/Knees bent 45 deg's, lifting top foot w/o & w/PF contraction Side bilateral Reps/Minutes 4' Comments Training & cuing for TA stab to prevent trunk rot, & breath work. Sitting Exercises Trunk rotation Sitting Exercise Name Active trunk rotation w/proper breathwork Reps/Minutes 3' Comments V cuing needed to improve R rot range with ex Standing Exercises Wall Squats Standing Exercise Name Wall squats (PF contraction 2x & w/o 3x) Side bilateral Reps/Minutes 5 hold x 6 PF awareness training Standing Exercise Name Active Hamstring stretch > upright positioning Side bilateral Reps/Minutes 3' Comments Took multiple times for pt to become aware of anterior PF contraction. Other Exercises 4-pt Other Exercise Name TA contraction w/o & w/PF contraction Reps/Minutes 5 hold x 6 Comments Cuing for lower TA contraction , proper breathwork. Therapeutic Activity Therapeutic Activity Squat reach Name Squat w/proper breathing/ alternating scissored legs/TA/ PF Reps/Minutes 3' Squatting Name Squat w/proper breathing/TA contraction Sit<->Stand Name Sit<>stand w/TA tight/proper breathing, PF >< 2x & w/o 3x Reps/Minutes 6 Self-Care/Home Management Treatment Education Patient Education Home Exercise Program Activities Self-Care/Home Management Activities Issued HEP: (reissued) handout for clamshell (attached to reverse clamshell handout), and issued & reviewed handout for progressive core strengthening starting at knee out ex starting with moving both legs, with I/S to advance to 1 knee out at a time. Issued Lev 1 TB. I/S given for taping of abdomen for Rectus Diastasis. PT-OP-T Assessment and Plan Start: 05/09/20 21:10 Freq: Status: Active Protocol: Document 06/14/20 09:09 LRN (Rec: 06/14/20 09:58 LRN [id number]) Physical Therapy Assessment Goals Six Impairment Poor knowledge of proper transfers and clothing wear to minimize UI. Short Term Goal (STG) Pt will be educated in proper transfers and clothing to minimize onset of Urinary Incontinence. STG Duration 05/21/20 (05/27/20: MET GOAL) Five Impairment Decreased PF endurance of 5 sec's in supine Internet Project Manager Goal (LTG) Improve PF endurance to 10 sec 's in supine. LTG Duration 07/26/20 Four Impairment Decreased PF strength rated 2/ 5 in supine Detention Goal (LTG) Improve PF strength to 3/5 in supine. LTG Duration 07/26/20 Three Impairment Poor core stability due to severe Diastasis Rectus. Short Term Goal (STG) Pt will be educated in proper transfers and use of K-tape to assist with DR closure through self management. STG Duration 05/27/20 (05/20/20: Partially met, educated in proper transfers) Detention Goal (LTG) Pt will demonstrate reduced DR and will be able to perform an automatic and on command TA contraction. (DR: Above umbilicus: 5 above is closed at Xyphoid Process; 4 above is 1.5 finger widths; 3 above is 2.5 finger widths, 2 above is 3 finger widths, 1 above is 3.t finger widths. Below umbilicus: 4 is closed; 3 0. 5 finger widths; 2 is 2.5 finger widths; 1 is 3.5 finger widths). LTG Duration 07/26/20 Two Impairment Poor management of Urge incontinence Short Term Goal (STG) Pt will be educated in Urge incontinence and bladder retraining. STG Duration GOAL MET. Internet Project Manager Goal (LTG) Pt will be able to make it to the bathroom at work and home with minimal to no urinary leakage. (06/14/20: No leakage since last session). LTG Duration 07/26/20 (05/27/20: Goal partially met) One Impairment Lacks self care HEP Detention Goal (LTG) Pt will be independent with a self care HEP to promote hip and core strength and PF mobility. LTG Duration 07/26/20 (06/14/20: Progressing) Progress Towards Goals Progress Towards Goals Progressing Toward Goals Progress Comments Added Clamshell and a progressive TA strengthening program to her home program, starting at step 2 of 5 steps. Assessment Summary Assessment Pt continence improving. Freq of urination increasing with increased water intake. She appears to have better control of her TA with no doming noted during head lift. DR still present. She demonstrates decreased awareness of proper breathing with functional activities ( squatting, sit to stand, etc); therefore further reinforcement of proper breathing is needed for ex and functional activities. Physical Therapy Plan Frequency and Duration Frequency of Treatment 1x/Week Plan of Care Start Date 05/13/20 Plan of Care End Date 07/26/20 Next Visit Focus/Plan Next Note Type Progress Note Next Visit Plan Assess for PN. K-tape self application education/training . Review previously issued HEP ( progressive core strengthening & clamshell), HEP for improving hip AD strength, & TA strengthening of roll in/outs to prevent doming HEP to improve Huang: IR, & right: AB & ER range of motion EMG biofeedback assessment
--- NOTE | 2020-06-17 18:23 | PT.OTN ---
Current Diagnoses Other specified disorders of muscle (06/17/20) Stress incontinence (female) (male) (06/17/20) Abnormal posture (06/17/20) Physical Therapy Treatment Note PT-OP-A Visit Information Start: 05/09/20 21:10 Freq: Status: Active Protocol: Document 06/17/20 10:36 LRN (Rec: 06/17/20 11:20 LRN [id number]) Out-Patient Physical Therapy Visit Information Visit Information Visit Type Treatment Note Visit Note Late start due to pt needing to use bathroom at start. Vists 05/08 Visit Start Time 10:36 Visit Stop Time 11:20 Total Visit Minutes 44 Visit Number 6 Evaluation Information Evaluation Date 05/13/20 Precautions Precautions None PT-OP-B Current Condition Start: 05/09/20 21:10 Freq: Status: Active Protocol: Document 05/13/20 08:57 LRN (Rec: 05/13/20 09:52 LRN [id number]) Current Condition History of Current Condition Onset Date 06/2018 History of Current Condition Childbirth of son in 04/2018 with a lot of tearing. Currently notices leakage with strong urge while trying to get into her house and after running. Sometimes she leaks during running, but mainly immediately afterwards. She is running 2x/week for 2-3 miles (1/2 hour). Was occasionally running before (2-3x/month, 1-2 miles). Denies constipation and denies leakage with cough or sneeze or activity when no urge is present. Leakage only with strong urge, Prior Treatments and Tests None Developmental History Developmental History See above Treatment Goals Patient/Caregiver Goals Goal is to have more control of her urine and to not wet underwear when trying to control urine. Prior Functional Status Baseline Function- ADL's Independent Baseline Function- Mobility Independent Baseline Function- Recreation/Hobbies Ran 2-3x/month, 1-2 mile runs. Current Functional Impairments (Reported) Functional Limitations- ADL's Unable to control urine with a strong urge. 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 Functional Limitations- Recreation/ Trickle of urinary leakage Hobbies during running and not able to maintain continence after running or if drinking water after running. 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 Stopped 2 weeks ago, milk production still present. PT-OP-C Subjective Start: 05/09/20 21:10 Freq: Status: Active Protocol: Document 06/17/20 10:36 LRN (Rec: 06/17/20 11:20 LRN [id number]) OP-PT Subjective Patient Comments Patient Comments No leaks PT-OP-G Mobility & Gait Start: 05/09/20 21:10 Freq: Status: Active Protocol: Document 05/13/20 08:57 LRN (Rec: 05/13/20 18:37 LRN [id number]) OP Mobility Evaluation Transfers Bed to Chair Transfers Transfers to supine by lying straight back and to sitting by a sit up motion. PT-OP-I Pelvic Floor Start: 05/09/20 21:10 Freq: Status: Active Protocol: Document 06/17/20 10:36 LRN (Rec: 06/17/20 18:17 LRN [id number]) Pelvic Floor Assessment Pelvic Clock Pelvic Clock 6-9 Tenderness Contraction Ability Manual Muscle Testing Left 1 Manual Muscle Testing Right 2 Manual Muscle Testing Anterior 0 Manual Muscle Testing Posterior 3 Muscle Endurance (Seconds) 10 Number of Quick Contractions In 10 8 Seconds PT-OP-J Posture/Palpation/Skin Start: 05/09/20 21:10 Freq: Status: Active Protocol: Document 05/13/20 08:57 LRN (Rec: 05/13/20 18:37 LRN [id number]) Posture Evaluation Position Standing Evaluation View All positions Head/C-Spine Posture Side Bent Left L-Spine Posture Rotation Right,Increased Lordosis Shoulder Posture (L) Elevated Pelvis Posture Anteriorly Tilted Knee Posture (L) Genu Valgus,(R) Genu Valgus Foot Arch (L) No Arch,(R) No Arch PT-OP-K Range of Motion Start: 05/09/20 21:10 Freq: Status: Active Protocol: Document 06/17/20 10:36 LRN (Rec: 06/17/20 18:21 LRN [id number]) Hip Goniometric Range of Motion Hip Right Passive Testing Position Supine Internal Rotation 25 External Rotation 75 Left Passive Testing Position Supine Internal Rotation 40 External Rotation 80 PT-OP-M Strength Start: 05/09/20 21:10 Freq: Status: Active Protocol: Document 05/13/20 08:57 LRN (Rec: 05/13/20 18:37 LRN [id number]) Trunk Strength Trunk Manual Muscle Testing Testing Position Supine Rotation Right 3- Fair- Core Stabilization Pt shows reduced ability to maintain neutral core with MMT of L hip flexion. Hip Strength Hip Manual Muscle Testing Right Adduction 4- Good- External Rotation 4 Good Internal Rotation 3 Fair Left Flexion (L2) 4+ Good+ Adduction 3+ Fair+ External Rotation 4 Good Internal Rotation 3 Fair PT-OP-Q Treatments Start: 05/09/20 21:10 Freq: Status: Active Protocol: Document 06/17/20 10:36 LRN (Rec: 06/17/20 17:50 LRN [id number]) Therapeutic Exercises Supine Exercises PF/L hip AD Supine Exercise Name Manual resisted L hip AD strengthening Side left Reps/Minutes 2' Hip PROM Supine Exercise Name Hip ER/IR stretch Side bilateral Reps/Minutes 8' PF contractions Supine Exercise Name Long Holds & Quick Flicks Reps/Minutes 10' Manual Therapy Treatment Taping K-tape Body Location Abdomen Treatment Focus Correction of Diastasis Rectus Type of Tape Kinesio Tape Skin Inspection Good Comments Pt educated in self K-tape method. Self-Care/Home Management Treatment Education Patient Education Home Exercise Program Other Education Reminded pt of 5 day wear time of K-tape and giving a day without tape before replacing. Activities Self-Care/Home Management Activities Discussed at length results of her PF assessment. I/S pt to focus on strengthening L lateral wall with manual resist of L Hip AD with ><. Discussed importance of relaxation phase and results if increased tone. I/S pt in improving anterior PF strength , and strength of Quick flicks vs Long holds. PT-OP-T Assessment and Plan Start: 05/09/20 21:10 Freq: Status: Active Protocol: Document 06/17/20 10:36 LRN (Rec: 06/17/20 11:20 LRN [id number]) Physical Therapy Assessment Goals Six Impairment Poor knowledge of proper transfers and clothing wear to minimize UI. Short Term Goal (STG) Pt will be educated in proper transfers and clothing to minimize onset of Urinary Incontinence. STG Duration 05/21/20 (05/27/20: MET GOAL) Five Impairment Decreased PF endurance of 5 sec's in supine Fdc Goal (LTG) Improve PF endurance to 10 sec 's in supine. (06/17/20: Quick Flicks: 8 reps before fatigue on R lateral wall.) LTG Duration 07/26/20 (06/17/20: MET GOAL, but Quick Flicks decr'd endurance) Four Impairment Decreased PF strength rated 2/ 5 in supine Improvement Rn Goal (LTG) Improve PF strength to 3/5 in supine. (06/17/20: L lateral wall is 1 /5, R lateral wall is 2/5, Anterior is 0/5, Posterior is 3/5). LTG Duration 07/26/20 Three Impairment Poor core stability due to severe Diastasis Rectus. Short Term Goal (STG) Pt will be educated in proper transfers and use of K-tape to assist with DR closure through self management. STG Duration 05/27/20 (05/20/20: Partially met, educated in proper transfers) Improvement Rn Goal (LTG) Pt will demonstrate reduced DR and will be able to perform an automatic and on command TA contraction. (DR: Above umbilicus: 5 above is closed at Xyphoid Process; 4 above is 1.5 finger widths; 3 above is 2.5 finger widths, 2 above is 3 finger widths, 1 above is 3.t finger widths. Below umbilicus: 4 is closed; 3 0. 5 finger widths; 2 is 2.5 finger widths; 1 is 3.5 finger widths). LTG Duration 07/26/20 Two Impairment Poor management of Urge incontinence Short Term Goal (STG) Pt will be educated in Urge incontinence and bladder retraining. STG Duration GOAL MET. Fdc Goal (LTG) Pt will be able to make it to the bathroom at work and home with minimal to no urinary leakage. (06/14/20: No leakage since last session). LTG Duration 07/26/20 (06/17/20: MET GOAL) One Impairment Lacks self care HEP Improvement Rn Goal (LTG) Pt will be independent with a self care HEP to promote hip and core strength and PF mobility. LTG Duration 07/26/20 (06/17/20: Progressing) Assessment Summary Assessment Pt has remained continent. Her DR appears to be lessening . Pt is able to prevent doming with TA contraction, but pt tends to forget with transfers. She has weakness of her L lateral wall and anterior PF clock with no visible Clitoral nod present. Pt has good hold with Long hold, but is only able to perform 8 quick flicks before loss of strength on the R side . Physical Therapy Plan Frequency and Duration Frequency of Treatment 1x/Week Plan of Care Start Date 05/13/20 Plan of Care End Date 07/26/20 Next Visit Focus/Plan Next Note Type Treatment Note Next Visit Plan Assess DR & Hip strength Review previously issued HEP ( progressive core strengthening & clamshell), HEP for improving R hip AD strength, & TA strengthening of roll in/outs HEP to improve R hip IR/ER & ? AB ROM. EMG biofeedback assessment
--- NOTE | 2020-06-24 14:45 | PT.OTN ---
Current Diagnoses Other specified disorders of muscle (06/24/20) Stress incontinence (female) (male) (06/24/20) Abnormal posture (06/24/20) Physical Therapy Treatment Note PT-OP-A Visit Information Start: 05/09/20 21:10 Freq: Status: Active Protocol: Document 06/24/20 10:31 LRN (Rec: 06/24/20 11:21 LRN [id number]) Out-Patient Physical Therapy Visit Information Visit Information Visit Type Treatment Note Visit Start Time 10:31 Visit Stop Time 11:20 Total Visit Minutes 49 Visit Number 7 Evaluation Information Evaluation Date 05/13/20 Precautions Precautions None PT-OP-B Current Condition Start: 05/09/20 21:10 Freq: Status: Active Protocol: Document 05/13/20 08:57 LRN (Rec: 05/13/20 09:52 LRN [id number]) Current Condition History of Current Condition Onset Date 06/2018 History of Current Condition Childbirth of son in 04/2018 with a lot of tearing. Currently notices leakage with strong urge while trying to get into her house and after running. Sometimes she leaks during running, but mainly immediately afterwards. She is running 2x/week for 2-3 miles (1/2 hour). Was occasionally running before (2-3x/month, 1-2 miles). Denies constipation and denies leakage with cough or sneeze or activity when no urge is present. Leakage only with strong urge, Prior Treatments and Tests None Developmental History Developmental History See above Treatment Goals Patient/Caregiver Goals Goal is to have more control of her urine and to not wet underwear when trying to control urine. Prior Functional Status Baseline Function- ADL's Independent Baseline Function- Mobility Independent Baseline Function- Recreation/Hobbies Ran 2-3x/month, 1-2 mile runs. Current Functional Impairments (Reported) Functional Limitations- ADL's Unable to control urine with a strong urge. 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 Functional Limitations- Recreation/ Trickle of urinary leakage Hobbies during running and not able to maintain continence after running or if drinking water after running. 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 Stopped 2 weeks ago, milk production still present. PT-OP-C Subjective Start: 05/09/20 21:10 Freq: Status: Active Protocol: Document 06/24/20 10:31 LRN (Rec: 06/24/20 11:21 LRN [id number]) OP-PT Subjective Patient Comments Patient Comments No leak. Drinking more water, so urge is more, every hour, but no leaks. Urination time is 8-12 secs. Practicing bending. Urge is every hour. PT-OP-G Mobility & Gait Start: 05/09/20 21:10 Freq: Status: Active Protocol: Document 05/13/20 08:57 LRN (Rec: 05/13/20 18:37 LRN [id number]) OP Mobility Evaluation Transfers Bed to Chair Transfers Transfers to supine by lying straight back and to sitting by a sit up motion. PT-OP-I Pelvic Floor Start: 05/09/20 21:10 Freq: Status: Active Protocol: Document 06/17/20 10:36 LRN (Rec: 06/17/20 18:17 LRN [id number]) Pelvic Floor Assessment Pelvic Clock Pelvic Clock 6-9 Tenderness Contraction Ability Manual Muscle Testing Left 1 Manual Muscle Testing Right 2 Manual Muscle Testing Anterior 0 Manual Muscle Testing Posterior 3 Muscle Endurance (Seconds) 10 Number of Quick Contractions In 10 8 Seconds PT-OP-J Posture/Palpation/Skin Start: 05/09/20 21:10 Freq: Status: Active Protocol: Document 05/13/20 08:57 LRN (Rec: 05/13/20 18:37 LRN [id number]) Posture Evaluation Position Standing Evaluation View All positions Head/C-Spine Posture Side Bent Left L-Spine Posture Rotation Right,Increased Lordosis Shoulder Posture (L) Elevated Pelvis Posture Anteriorly Tilted Knee Posture (L) Genu Valgus,(R) Genu Valgus Foot Arch (L) No Arch,(R) No Arch PT-OP-K Range of Motion Start: 05/09/20 21:10 Freq: Status: Active Protocol: Document 06/17/20 10:36 LRN (Rec: 06/17/20 18:21 LRN [id number]) Hip Goniometric Range of Motion Hip Right Passive Testing Position Supine Internal Rotation 25 External Rotation 75 Left Passive Testing Position Supine Internal Rotation 40 External Rotation 80 PT-OP-M Strength Start: 05/09/20 21:10 Freq: Status: Active Protocol: Document 05/13/20 08:57 LRN (Rec: 05/13/20 18:37 LRN [id number]) Trunk Strength Trunk Manual Muscle Testing Testing Position Supine Rotation Right 3- Fair- Core Stabilization Pt shows reduced ability to maintain neutral core with MMT of L hip flexion. Hip Strength Hip Manual Muscle Testing Right Adduction 4- Good- External Rotation 4 Good Internal Rotation 3 Fair Left Flexion (L2) 4+ Good+ Adduction 3+ Fair+ External Rotation 4 Good Internal Rotation 3 Fair PT-OP-Q Treatments Start: 05/09/20 21:10 Freq: Status: Active Protocol: Document 06/24/20 10:31 LRN (Rec: 06/24/20 11:21 LRN [id number]) Therapeutic Exercises Supine Exercises Roll in/outs on Wedge Supine Exercise Name Roll in/outs on Wedge Resistance T-Band & Ball Reps/Minutes 2x PF contraction 2x rest PF Comments V. Cuing for TA and breathing during ex. Sidelying Exercises R hip AD w/Quick Flicks Sidelying Exercise Name R hip AD w/Quick Flick strengthening Side right Reps/Minutes 4' Comments v. cuing for Quick Flicks Hip AD w/PF & TA on Sidelying Exercise Name Hip AD w/PF/TA on Side left Reps/Minutes 10x with PF & 10x w/o PF contraction Comments Phys & v. cuing for TA & breathing durin ex Reverse Clam Sidelying Exercise Name TA/Knees bent 45 deg's, lifting top foot w/o & w/PF contraction Side bilateral Reps/Minutes Alternating PF contraction 10x with and 10x without Comments Training & cuing for TA stab to prevent trunk rot, & breath work. Self-Care/Home Management Treatment Education Patient Education Home Exercise Program Other Education Talked at length to educate the pt in Bladder retraining to extend tolerance between voiding for > 1 hr. Discussed at length ways to for pt to track urgency and ability to make it to bathroom during bladder retraining. Activities Self-Care/Home Management Activities Issued & reviewed HEP: PF strengthening on wedge for Phase 1 of LE roll in/out program with modification for hooklie position on pillows. Issued & reviewed LE Roll in/ out ex with emphasis on anterior PF strengthening through range of hip IR/ER and cuing for breathing/TA contraction. PT-OP-T Assessment and Plan Start: 05/09/20 21:10 Freq: Status: Active Protocol: Document 06/24/20 10:31 LRN (Rec: 06/24/20 11:21 LRN [id number]) Physical Therapy Assessment Goals Six Impairment Poor knowledge of proper transfers and clothing wear to minimize UI. Short Term Goal (STG) Pt will be educated in proper transfers and clothing to minimize onset of Urinary Incontinence. STG Duration 05/21/20 (05/27/20: MET GOAL) Five Impairment Decreased PF endurance of 5 sec's in supine Exercise Instruct Goal (LTG) Improve PF endurance to 10 sec 's in supine. (06/17/20: Quick Flicks: 8 reps before fatigue on R lateral wall.) LTG Duration 07/26/20 (06/17/20: MET GOAL, but Quick Flicks decr'd endurance) Four Impairment Decreased PF strength rated 2/ 5 in supine Exercise Instruct Goal (LTG) Improve PF strength to 3/5 in supine. (06/17/20: L lateral wall is 1 /5, R lateral wall is 2/5, Anterior is 0/5, Posterior is 3/5). LTG Duration 07/26/20 Three Impairment Poor core stability due to severe Diastasis Rectus. Short Term Goal (STG) Pt will be educated in proper transfers and use of K-tape to assist with DR closure through self management. STG Duration 05/27/20 (05/20/20: Partially met, educated in proper transfers) Penitentiary Goal (LTG) Pt will demonstrate reduced DR and will be able to perform an automatic and on command TA contraction. (06/24/20: DR: Above umbilicus: 5 & 4 above is closed; 3 above is 1.5 finger widths, 2 above is 2.5 finger widths, 1 above is 3.5 finger widths. Below umbilicus: 4 & 3 is closed; 2 is 0.5 finger widths; 1 is 2.5 finger widths). (Initial DR measurements: Above umbilicus: 5 above is closed at Xyphoid Process; 4 above is 1.5 finger widths; 3 above is 2.5 finger widths, 2 above is 3 finger widths, 1 above is 3.5 finger widths. Below umbilicus: 4 is closed; 3 0.5 finger widths; 2 is 2 .5 finger widths; 1 is 3.5 finger widths) LTG Duration 07/26/20 (06/24/20: Progressing improvement) Two Impairment Poor management of Urge incontinence Short Term Goal (STG) Pt will be educated in Urge incontinence and bladder retraining. STG Duration GOAL MET. Exercise Instruct Goal (LTG) Pt will be able to make it to the bathroom at work and home with minimal to no urinary leakage. (06/14/20: No leakage since last session). LTG Duration 07/26/20 (06/17/20: MET GOAL) One Impairment Lacks self care HEP Penitentiary Goal (LTG) Pt will be independent with a self care HEP to promote hip and core strength and PF mobility. LTG Duration 07/26/20 (06/24/20: Progressing) Progress Towards Goals Progress Comments Decreased DR (see LTG #3). Assessment Summary Assessment Pt DR appears to be closing. Weakness of her L lateral wall and anterior PF clock. Pt notified of no visible Clitoral nod present. Pt has good hold with Long hold ( except L lateral side could be improved), but is only able to perform 8 quick flicks before loss of strength on the R lateral side. Pt appears to have a good understanding of bladder retraining, but further training is probably needed. Physical Therapy Plan Frequency and Duration Frequency of Treatment 1x/Week Plan of Care Start Date 05/13/20 Plan of Care End Date 07/26/20 Next Visit Focus/Plan Next Note Type Treatment Note Next Visit Plan Assess Hip strength Review HEP of: progressive core strengthening & clamshell , & ON WEDGE: Roll in/out sup & knees flexed and try with feet on wall, and add focus of TA strengthening of roll in /outs HEP for improving R hip AD strength, HEP to improve R hip IR/ER & ? AB ROM. EMG biofeedback assessment.
--- NOTE | 2020-07-04 16:40 | PT.OTN ---
Current Diagnoses Other specified disorders of muscle (07/04/20) Stress incontinence (female) (male) (07/04/20) Abnormal posture (07/04/20) Physical Therapy Treatment Note PT-OP-A Visit Information Start: 05/09/20 21:10 Freq: Status: Active Protocol: Document 07/04/20 15:10 LRN (Rec: 07/04/20 16:36 LRN [id number]) Out-Patient Physical Therapy Visit Information Visit Information Visit Type Treatment Note Visit Start Time 15:10 Visit Stop Time 16:03 Total Visit Minutes 47 Visit Number 8 Evaluation Information Evaluation Date 05/13/20 Precautions Precautions None PT-OP-B Current Condition Start: 05/09/20 21:10 Freq: Status: Active Protocol: Document 05/13/20 08:57 LRN (Rec: 05/13/20 09:52 LRN [id number]) Current Condition History of Current Condition Onset Date 06/2018 History of Current Condition Childbirth of son in 04/2018 with a lot of tearing. Currently notices leakage with strong urge while trying to get into her house and after running. Sometimes she leaks during running, but mainly immediately afterwards. She is running 2x/week for 2-3 miles (1/2 hour). Was occasionally running before (2-3x/month, 1-2 miles). Denies constipation and denies leakage with cough or sneeze or activity when no urge is present. Leakage only with strong urge, Prior Treatments and Tests None Developmental History Developmental History See above Treatment Goals Patient/Caregiver Goals Goal is to have more control of her urine and to not wet underwear when trying to control urine. Prior Functional Status Baseline Function- ADL's Independent Baseline Function- Mobility Independent Baseline Function- Recreation/Hobbies Ran 2-3x/month, 1-2 mile runs. Current Functional Impairments (Reported) Functional Limitations- ADL's Unable to control urine with a strong urge. 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 Functional Limitations- Recreation/ Trickle of urinary leakage Hobbies during running and not able to maintain continence after running or if drinking water after running. 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 Stopped 2 weeks ago, milk production still present. PT-OP-C Subjective Start: 05/09/20 21:10 Freq: Status: Active Protocol: Document 07/04/20 15:10 LRN (Rec: 07/04/20 16:36 LRN [id number]) OP-PT Subjective Patient Comments Patient Comments Had a very small leak because waited too long. Drinking lots of water, founc she had to go every 2 hours. Urination times : 1st in AM is 10-14 secs, during the day 7-8. PT-OP-G Mobility & Gait Start: 05/09/20 21:10 Freq: Status: Active Protocol: Document 05/13/20 08:57 LRN (Rec: 05/13/20 18:37 LRN [id number]) OP Mobility Evaluation Transfers Bed to Chair Transfers Transfers to supine by lying straight back and to sitting by a sit up motion. PT-OP-I Pelvic Floor Start: 05/09/20 21:10 Freq: Status: Active Protocol: Document 06/17/20 10:36 LRN (Rec: 06/17/20 18:17 LRN [id number]) Pelvic Floor Assessment Pelvic Clock Pelvic Clock 6-9 Tenderness Contraction Ability Manual Muscle Testing Left 1 Manual Muscle Testing Right 2 Manual Muscle Testing Anterior 0 Manual Muscle Testing Posterior 3 Muscle Endurance (Seconds) 10 Number of Quick Contractions In 10 8 Seconds PT-OP-J Posture/Palpation/Skin Start: 05/09/20 21:10 Freq: Status: Active Protocol: Document 05/13/20 08:57 LRN (Rec: 05/13/20 18:37 LRN [id number]) Posture Evaluation Position Standing Evaluation View All positions Head/C-Spine Posture Side Bent Left L-Spine Posture Rotation Right,Increased Lordosis Shoulder Posture (L) Elevated Pelvis Posture Anteriorly Tilted Knee Posture (L) Genu Valgus,(R) Genu Valgus Foot Arch (L) No Arch,(R) No Arch PT-OP-K Range of Motion Start: 05/09/20 21:10 Freq: Status: Active Protocol: Document 06/17/20 10:36 LRN (Rec: 06/17/20 18:21 LRN [id number]) Hip Goniometric Range of Motion Hip Right Passive Testing Position Supine Internal Rotation 25 External Rotation 75 Left Passive Testing Position Supine Internal Rotation 40 External Rotation 80 PT-OP-M Strength Start: 05/09/20 21:10 Freq: Status: Active Protocol: Document 07/04/20 15:10 LRN (Rec: 07/04/20 16:36 LRN [id number]) Hip Strength Hip Manual Muscle Testing Right Flexion (L2) 5 Normal Extension (S1) 5 Normal Abduction 5 Normal Adduction 4+ Good+ External Rotation 4+ Good+ Internal Rotation 3+ Fair+ Left Flexion (L2) 5 Normal Extension (S1) 5 Normal Abduction 5 Normal Adduction 4+ Good+ External Rotation 4+ Good+ Internal Rotation 3+ Fair+ PT-OP-Q Treatments Start: 05/09/20 21:10 Freq: Status: Active Protocol: Document 07/04/20 15:10 LRN (Rec: 07/04/20 16:36 LRN [id number]) Therapeutic Exercises Supine Exercises Bridge with LE roll in/out Supine Exercise Name Bridge with LE roll in/out & TA/PF contraction Resistance Ball & Lev 1 TBand Equipment Used Wedge, Ball & Lev 1 TBand Reps/Minutes 6 Comments V. cuing required for proper sequencing of breathwork, roll of legs in/out Trunk rot/Feet on wall Supine Exercise Name Trunk Rot w/Feet on wall Side bilateral Resistance Ball & Lev 1 TBand Equipment Used Wedge, Ball & Lev 1 TBand Reps/Minutes 8' Comments Much phys & v. training/cuing needed for appropriate sequencing. Heel off wall Roll in/out Supine Exercise Name Heel off wall Roll in/outs with TA/with & without PF contraction Side bilateral Resistance Ball & Lev 1 TBand Equipment Used Wedge, Ball & Lev 1 TBand Reps/Minutes 7 Comments V. cuing and assist needed for breathing sequencing and v. cuing for combo Roll in/outs on Wedge Supine Exercise Name Roll in/outs on Wedge Resistance T-Band & Ball Reps/Minutes 2x PF contraction 2x rest PF Comments V. Cuing for TA and breathing during ex. Knee out/TA Supine Exercise Name Single BKFO with TA for core stability Side bilateral Reps/Minutes 6' Sidelying Exercises Hip AB/AD Sidelying Exercise Name Hip AB/AD Side bilateral Reps/Minutes 1-2x each Comments MMT Clamshell w/TA & PF Sidelying Exercise Name Clamshell w/TA & PF Side bilateral Resistance 5#, 2# Reps/Minutes 10 x 2, 10x, respectively Comments V. cuing for TA & PF contraction Reverse Clam Sidelying Exercise Name TA/Knees bent 45 deg's, lifting top foot w/o & w/PF contraction Side bilateral Resistance 2# Reps/Minutes Alternating PF contraction ex. Comments Review cuing for TA stab to prevent trunk rot, & breath work. Self-Care/Home Management Treatment Education Patient Education Home Exercise Program Other Education Reviewed proper K-tape for DR. Pt able to recall appropriate sequence of using K-tape to facilitate DR closure. Activities Self-Care/Home Management Activities Issue & reviewed: Phase 2 of Roll in/out progression. Added Bridge with hooklie roll in/outs and added heel lift with feet on wall roll in/outs . Discussed adding resistance to either knees or arms with trunk rotation. PT-OP-T Assessment and Plan Start: 05/09/20 21:10 Freq: Status: Active Protocol: Document 07/04/20 15:10 LRN (Rec: 07/04/20 16:36 LRN [id number]) Physical Therapy Assessment Goals Six Impairment Poor knowledge of proper transfers and clothing wear to minimize UI. Short Term Goal (STG) Pt will be educated in proper transfers and clothing to minimize onset of Urinary Incontinence. STG Duration 05/21/20 (05/27/20: MET GOAL) Five Impairment Decreased PF endurance of 5 sec's in supine V Belt Inspector Goal (LTG) Improve PF endurance to 10 sec 's in supine. (06/17/20: Quick Flicks: 8 reps before fatigue on R lateral wall.) LTG Duration 07/26/20 (06/17/20: MET GOAL, but Quick Flicks decr'd endurance) Four Impairment Decreased PF strength rated 2/ 5 in supine Alf Goal (LTG) Improve PF strength to 3/5 in supine. (06/17/20: L lateral wall is 1 /5, R lateral wall is 2/5, Anterior is 0/5, Posterior is 3/5). LTG Duration 07/26/20 Three Impairment Poor core stability due to severe Diastasis Rectus. Short Term Goal (STG) Pt will be educated in proper transfers and use of K-tape to assist with DR closure through self management. STG Duration 05/27/20 (07/04/20: MET GOAL) V Belt Inspector Goal (LTG) Pt will demonstrate reduced DR and will be able to perform an automatic and on command TA contraction. (06/24/20: DR: Above umbilicus: 5 & 4 above is closed; 3 above is 1.5 finger widths, 2 above is 2.5 finger widths, 1 above is 3.5 finger widths. Below umbilicus: 4 & 3 is closed; 2 is 0.5 finger widths; 1 is 2.5 finger widths). (Initial DR measurements: Above umbilicus: 5 above is closed at Xyphoid Process; 4 above is 1.5 finger widths; 3 above is 2.5 finger widths, 2 above is 3 finger widths, 1 above is 3.5 finger widths. Below umbilicus: 4 is closed; 3 0.5 finger widths; 2 is 2 .5 finger widths; 1 is 3.5 finger widths) LTG Duration 07/26/20 (06/24/20: Progressing improvement) Two Impairment Poor management of Urge incontinence Short Term Goal (STG) Pt will be educated in Urge incontinence and bladder retraining. STG Duration GOAL MET. Alf Goal (LTG) Pt will be able to make it to the bathroom at work and home with minimal to no urinary leakage. (06/14/20: No leakage since last session). LTG Duration 07/26/20 (06/17/20: MET GOAL) One Impairment Lacks self care HEP V Belt Inspector Goal (LTG) Pt will be independent with a self care HEP to promote hip and core strength and PF mobility. LTG Duration 07/26/20 (07/04/20: Progressing) Progress Towards Goals Progress Comments Goal #2 MET Goal #3 STG MET. Goals 5 & 6 MET. Hip strength has increased 1/2 grade with hip Flex, ER/IR and more than 1/2 grade with AD. Assessment Summary Assessment Pt is voiding every 2 hours with acceptable void times 7-8 secs during the day. Pt is aware of DR not quite closed and is wearing a lumbar support belt to help approximate her DR. Ex today to help strengthen core & trunk rotators. Did not review ex for lateral wall Quick Flics and anterior PF weakness. Pt did not have a good recall of the Core strengthening of Single Knee out stab ex, therefore review was needed. Good recall of roll in/out exercise. Pt improved with hip strength, weakness primarily with hip AD and IR>ER. Physical Therapy Plan Frequency and Duration Frequency of Treatment 1x/Week Plan of Care Start Date 05/13/20 Plan of Care End Date 07/26/20 Next Visit Focus/Plan Next Note Type Treatment Note Next Visit Plan Review HEP of: progressive core strengthening (rot) and progress to leg slide if appropriate. Progress TA strengthening of roll in/outs, HEP for improving R hip AD strength & ?ROM. EMG biofeedback assessment.
--- NOTE | 2020-07-11 16:22 | PT.OTN ---
Current Diagnoses Other specified disorders of muscle (07/11/20) Stress incontinence (female) (male) (07/11/20) Abnormal posture (07/11/20) Physical Therapy Treatment Note PT-OP-A Visit Information Start: 05/09/20 21:10 Freq: Status: Active Protocol: Document 07/11/20 15:08 LRN (Rec: 07/11/20 16:18 LRN [id number]) Out-Patient Physical Therapy Visit Information Visit Information Visit Type Treatment Note Visit Start Time 15:08 Visit Stop Time 16:00 Total Visit Minutes 52 Visit Number 9 Evaluation Information Evaluation Date 05/13/20 Precautions Precautions None PT-OP-B Current Condition Start: 05/09/20 21:10 Freq: Status: Active Protocol: Document 05/13/20 08:57 LRN (Rec: 05/13/20 09:52 LRN [id number]) Current Condition History of Current Condition Onset Date 06/2018 History of Current Condition Childbirth of son in 04/2018 with a lot of tearing. Currently notices leakage with strong urge while trying to get into her house and after running. Sometimes she leaks during running, but mainly immediately afterwards. She is running 2x/week for 2-3 miles (1/2 hour). Was occasionally running before (2-3x/month, 1-2 miles). Denies constipation and denies leakage with cough or sneeze or activity when no urge is present. Leakage only with strong urge, Prior Treatments and Tests None Developmental History Developmental History See above Treatment Goals Patient/Caregiver Goals Goal is to have more control of her urine and to not wet underwear when trying to control urine. Prior Functional Status Baseline Function- ADL's Independent Baseline Function- Mobility Independent Baseline Function- Recreation/Hobbies Ran 2-3x/month, 1-2 mile runs. Current Functional Impairments (Reported) Functional Limitations- ADL's Unable to control urine with a strong urge. 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 Functional Limitations- Recreation/ Trickle of urinary leakage Hobbies during running and not able to maintain continence after running or if drinking water after running. 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 Stopped 2 weeks ago, milk production still present. PT-OP-C Subjective Start: 05/09/20 21:10 Freq: Status: Active Protocol: Document 07/11/20 15:08 LRN (Rec: 07/11/20 16:18 LRN [id number]) OP-PT Subjective Patient Comments Patient Comments States no leakage. PT-OP-G Mobility & Gait Start: 05/09/20 21:10 Freq: Status: Active Protocol: Document 05/13/20 08:57 LRN (Rec: 05/13/20 18:37 LRN [id number]) OP Mobility Evaluation Transfers Bed to Chair Transfers Transfers to supine by lying straight back and to sitting by a sit up motion. PT-OP-I Pelvic Floor Start: 05/09/20 21:10 Freq: Status: Active Protocol: Document 07/11/20 15:08 LRN (Rec: 07/11/20 16:18 LRN [id number]) Pelvic Floor Assessment Urine Other Urinary Symptoms Occasional urinary leakage with a strong urge Leakage Size Small Perineal Descent Resting Absent Bearing Absent Contraction Ability Voluntary Contraction Weak Manual Muscle Testing Left 1 Manual Muscle Testing Right 1 Manual Muscle Testing Anterior 1 Manual Muscle Testing Posterior 3 Muscle Endurance (Seconds) 2 Number of Quick Contractions In 10 6 Seconds Comments Pelvic Floor Comments No bulging at perineum with PF contraction. PF contraction shows a very slight Clitoral nod with facilitation of hip AD/IR, Anal [place] noted. PT-OP-J Posture/Palpation/Skin Start: 05/09/20 21:10 Freq: Status: Active Protocol: Document 05/13/20 08:57 LRN (Rec: 05/13/20 18:37 LRN [id number]) Posture Evaluation Position Standing Evaluation View All positions Head/C-Spine Posture Side Bent Left L-Spine Posture Rotation Right,Increased Lordosis Shoulder Posture (L) Elevated Pelvis Posture Anteriorly Tilted Knee Posture (L) Genu Valgus,(R) Genu Valgus Foot Arch (L) No Arch,(R) No Arch PT-OP-K Range of Motion Start: 05/09/20 21:10 Freq: Status: Active Protocol: Document 06/17/20 10:36 LRN (Rec: 06/17/20 18:21 LRN [id number]) Hip Goniometric Range of Motion Hip Right Passive Testing Position Supine Internal Rotation 25 External Rotation 75 Left Passive Testing Position Supine Internal Rotation 40 External Rotation 80 PT-OP-M Strength Start: 05/09/20 21:10 Freq: Status: Active Protocol: Document 07/04/20 15:10 LRN (Rec: 07/04/20 16:36 LRN [id number]) Hip Strength Hip Manual Muscle Testing Right Flexion (L2) 5 Normal Extension (S1) 5 Normal Abduction 5 Normal Adduction 4+ Good+ External Rotation 4+ Good+ Internal Rotation 3+ Fair+ Left Flexion (L2) 5 Normal Extension (S1) 5 Normal Abduction 5 Normal Adduction 4+ Good+ External Rotation 4+ Good+ Internal Rotation 3+ Fair+ PT-OP-Q Treatments Start: 05/09/20 21:10 Freq: Status: Active Protocol: Document 07/11/20 15:08 LRN (Rec: 07/11/20 16:18 LRN [id number]) Therapeutic Exercises Supine Exercises Heel lifts off wall Supine Exercise Name Heel lifts off wall (hips ~42 from wall) Side bilateral Equipment Used Wedge, ball & Lev 1 Tband Reps/Minutes 4' Comments v. cuing to remind of breathing and TA/PF contraction Trunk rot/Feet on wall Supine Exercise Name Trunk Rot w/Feet on wall Side bilateral Resistance Ball & Lev 1 TBand Equipment Used Wedge, Ball & Lev 1 TBand Reps/Minutes 8' Comments Phys & v. training/cuing needed for appropriate sequencing. Heel off wall Roll in/out Supine Exercise Name Heel off wall Roll in/outs with TA/with & without PF contraction Side bilateral Equipment Used Wedge, Ball & Lev 1 TBand Reps/Minutes 7' Comments Phys & V. cuing & asst for breathing sequencing and performance PF contractions Supine Exercise Name PF contractions: Quick Flicks/ Long Holds. Reps/Minutes 6' Comments PF strength assessed. Sitting Exercises Sit backs w/small rotations Sitting Exercise Name Sit backs w/small trunk rot Side bilateral Reps/Minutes 2' Comments Training for correct movements of rotation. Sit backs w/LE roll in/out & PF Sitting Exercise Name Sit backs for core strengthening w/PF contraction /LE roll in/outs Reps/Minutes 5' Comments Training for optimal positioning PT-OP-T Assessment and Plan Start: 05/09/20 21:10 Freq: Status: Active Protocol: Document 07/11/20 15:08 LRN (Rec: 07/11/20 16:18 LRN [id number]) Physical Therapy Assessment Rehab Potential Rehabilitation Potential Good Evaluation Complexity Number of Personal Factors/Comorbidities 1-2 Number of Body Systems Impaired 4 or More Clinical Presentation at Evaluation Evolving Impairments Impairments Activity Tolerance,Posture,ROM ,Strength Other Impairments Hormonal changes due to . Goals Four Impairment Decreased PF strength rated 2/ 5 in supine Software Installation Engineer Goal (LTG) Improve PF strength to 3/5 in supine. (07/11/20: L lateral wall is 1 /5, R lateral wall is 2/5, Anterior is 0/5, Posterior is 3/5). LTG Duration 07/26/20 Three Impairment Poor core stability due to severe Diastasis Rectus. Short Term Goal (STG) Pt will be educated in proper transfers and use of K-tape to assist with DR closure through self management. STG Duration 05/27/20 (07/04/20: MET GOAL) Software Installation Engineer Goal (LTG) Pt will demonstrate reduced DR and will be able to perform an automatic and on command TA contraction. (07/11/20: DR: Above umbilicus: 5 & 4 above is closed; 3 above is 1.5 finger widths, 2 above is 2.5 finger widths, 1 above is 1.5 finger widths. Below umbilicus: 4 & 3 is closed; 2 is 1.5 shallow finger widths; 1 is 2 finger widths) . (Initial DR measurements: Above umbilicus: 5 above is closed at Xyphoid Process; 4 above is 1.5 finger widths; 3 above is 2.5 finger widths, 2 above is 3 finger widths, 1 above is 3.5 finger widths. Below umbilicus: 4 is closed; 3 0.5 finger widths; 2 is 2 .5 finger widths; 1 is 3.5 finger widths) LTG Duration 07/26/20 (07/11/20: MET GOAL for reduced diastasis & able to perform a TA) One Impairment Lacks self care HEP Software Installation Engineer Goal (LTG) Pt will be independent with a self care HEP to promote hip and core strength and PF mobility. LTG Duration 07/26/20 (07/04/20: Progressing) Assessment Summary Assessment Pt able to perform a TA contraction on command showing improved stability and awareness for core stability. Her Diastasis Rectus is closing slowly allowing for improved core stability. She no longer reports urinary leakage. Physical Therapy Plan Frequency and Duration Frequency of Treatment 1x/Week Plan of Care Start Date 05/13/20 Plan of Care End Date 07/26/20 Next Visit Focus/Plan Next Note Type Progress Note Next Visit Plan Assess for PN. EMG biofeedback assessment and ending with PF awareness training. Set new DR goal. Review HEP of: progressive core strengthening and progress to leg slide if appropriate. Progress TA strengthening of roll in/outs, HEP for improving R hip AD strength & ?ROM.
--- NOTE | 2020-07-18 16:47 | PT.OTN ---
Current Diagnoses Other specified disorders of muscle (07/18/20) Stress incontinence (female) (male) (07/18/20) Abnormal posture (07/18/20) Physical Therapy Treatment Note PT-OP-A Visit Information Start: 05/09/20 21:10 Freq: Status: Active Protocol: Document 07/18/20 15:04 LRN (Rec: 07/18/20 16:42 LRN [id number]) Out-Patient Physical Therapy Visit Information Visit Information Visit Type Progress Note Visit Start Time 15:08 Visit Stop Time 16:08 Total Visit Minutes 60 Visit Number 10 Evaluation Information Evaluation Date 05/13/20 Precautions Precautions None PT-OP-B Current Condition Start: 05/09/20 21:10 Freq: Status: Active Protocol: Document 05/13/20 08:57 LRN (Rec: 05/13/20 09:52 LRN [id number]) Current Condition History of Current Condition Onset Date 06/2018 History of Current Condition Childbirth of son in 04/2018 with a lot of tearing. Currently notices leakage with strong urge while trying to get into her house and after running. Sometimes she leaks during running, but mainly immediately afterwards. She is running 2x/week for 2-3 miles (1/2 hour). Was occasionally running before (2-3x/month, 1-2 miles). Denies constipation and denies leakage with cough or sneeze or activity when no urge is present. Leakage only with strong urge, Prior Treatments and Tests None Developmental History Developmental History See above Treatment Goals Patient/Caregiver Goals Goal is to have more control of her urine and to not wet underwear when trying to control urine. Prior Functional Status Baseline Function- ADL's Independent Baseline Function- Mobility Independent Baseline Function- Recreation/Hobbies Ran 2-3x/month, 1-2 mile runs. Current Functional Impairments (Reported) Functional Limitations- ADL's Unable to control urine with a strong urge. 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 Functional Limitations- Recreation/ Trickle of urinary leakage Hobbies during running and not able to maintain continence after running or if drinking water after running. 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 Stopped 2 weeks ago, milk production still present. PT-OP-C Subjective Start: 05/09/20 21:10 Freq: Status: Active Protocol: Document 07/18/20 15:04 LRN (Rec: 07/18/20 16:42 LRN [id number]) OP-PT Subjective Patient Comments Patient Comments No leaks, not running yet. PT-OP-G Mobility & Gait Start: 05/09/20 21:10 Freq: Status: Active Protocol: Document 05/13/20 08:57 LRN (Rec: 05/13/20 18:37 LRN [id number]) OP Mobility Evaluation Transfers Bed to Chair Transfers Transfers to supine by lying straight back and to sitting by a sit up motion. PT-OP-I Pelvic Floor Start: 05/09/20 21:10 Freq: Status: Active Protocol: Document 07/18/20 15:04 LRN (Rec: 07/18/20 16:42 LRN [id number]) Pelvic Floor Assessment Contraction Ability Voluntary Contraction Weak Manual Muscle Testing Left 1 Manual Muscle Testing Right 1 Manual Muscle Testing Anterior 1 Manual Muscle Testing Posterior 3 Muscle Endurance (Seconds) 2 Number of Quick Contractions In 10 6 Seconds PT-OP-J Posture/Palpation/Skin Start: 05/09/20 21:10 Freq: Status: Active Protocol: Document 05/13/20 08:57 LRN (Rec: 05/13/20 18:37 LRN [id number]) Posture Evaluation Position Standing Evaluation View All positions Head/C-Spine Posture Side Bent Left L-Spine Posture Rotation Right,Increased Lordosis Shoulder Posture (L) Elevated Pelvis Posture Anteriorly Tilted Knee Posture (L) Genu Valgus,(R) Genu Valgus Foot Arch (L) No Arch,(R) No Arch PT-OP-K Range of Motion Start: 05/09/20 21:10 Freq: Status: Active Protocol: Document 06/17/20 10:36 LRN (Rec: 06/17/20 18:21 LRN [id number]) Hip Goniometric Range of Motion Hip Right Passive Testing Position Supine Internal Rotation 25 External Rotation 75 Left Passive Testing Position Supine Internal Rotation 40 External Rotation 80 PT-OP-M Strength Start: 05/09/20 21:10 Freq: Status: Active Protocol: Document 07/04/20 15:10 LRN (Rec: 07/04/20 16:36 LRN [id number]) Hip Strength Hip Manual Muscle Testing Right Flexion (L2) 5 Normal Extension (S1) 5 Normal Abduction 5 Normal Adduction 4+ Good+ External Rotation 4+ Good+ Internal Rotation 3+ Fair+ Left Flexion (L2) 5 Normal Extension (S1) 5 Normal Abduction 5 Normal Adduction 4+ Good+ External Rotation 4+ Good+ Internal Rotation 3+ Fair+ PT-OP-Q Treatments Start: 05/09/20 21:10 Freq: Status: Active Protocol: Document 07/18/20 15:04 LRN (Rec: 07/18/20 16:42 LRN [id number]) Therapeutic Exercises Sidelying Exercises Hip AB/AD Sidelying Exercise Name Hip AD Side left Reps/Minutes 10x 3 Reverse Clam Sidelying Exercise Name TA/Knees bent 45 deg's, lifting top foot w/o & w/PF contraction Side bilateral Reps/Minutes 10x 3, Alternating PF contraction ex. Comments Review cuing for TA stab to prevent trunk rot, & breath work. Standing Exercises Marcos hip AD w/PF contraction Standing Exercise Name Marcos hip AD w/PF contraction/ breathing Side left Reps/Minutes 3' Comments Extra time needed for proper understanding & performance of ex Hip AD w/PF contraction Standing Exercise Name Hip AD w/PF contraction/with & without T-Band/proper breathing Side left Reps/Minutes 7' Active Hamstring stretch Standing Exercise Name Active Hamstring stretch w/PF contraction Reps/Minutes 10x Neuro Re-Education Treatment Other Activities Biofeedback for PF awareness Details Biofeedback for PF awareness training (intensity 12). Reps/Duration 25' Comments Had a difficult time getting pt to feel the electrode and getting intensity level to obtain a PF contraction. Repositioning of pt, and electrode a couple times before pt was able to be aware of getting a PF contraction. Once obtained she was able to use Estim for PF ms training x 10' on/off 10:20 secs. Self-Care/Home Management Treatment Education Patient Education Home Exercise Program Activities Self-Care/Home Management Activities I/S pt to increase number of repetitions with PF contraction to 10 with pre issued Clamshell/Reverse clamshell. Issue & reviewed HEP: L hip AD sidelie and standing for L lateral wall PF strengthening. PT-OP-T Assessment and Plan Start: 05/09/20 21:10 Freq: Status: Active Protocol: Document 07/18/20 15:04 LRN (Rec: 07/18/20 16:42 LRN [id number]) Physical Therapy Assessment Goals Six Impairment Poor knowledge of proper transfers and clothing wear to minimize UI. Short Term Goal (STG) Pt will be educated in proper transfers and clothing to minimize onset of Urinary Incontinence. STG Duration 05/21/20 (05/27/20: MET GOAL) Five Impairment Decreased PF endurance of 5 sec's in supine Jail Goal (LTG) Improve PF endurance to 10 sec 's in supine. (06/17/20: Quick Flicks: 8 reps before fatigue on R lateral lara.) LTG Duration 08/30/20 (06/17/20: MET GOAL, but Quick Flicks decr'd endurance) Four Impairment Decreased PF strength rated 2/ 5 in supine Jail Goal (LTG) Improve PF strength to 3/5 in supine. 07/11/20: L lateral wall is 1/ 5, R lateral wall is 1/5, Anterior is 1/5, Posterior is 3/5. (05/13/20 EVAL: L lateral wall is 2/5, R lateral wall is 0/5, Anterior is 0/5, Posterior is 1/5 LTG Duration 08/30/20 (07/18/20: Improving) Three Impairment Poor core stability due to severe Diastasis Rectus. Short Term Goal (STG) Pt will be educated in proper transfers and use of K-tape to assist with DR closure through self management. STG Duration 05/27/20 (07/04/20: MET GOAL) Jail Goal (LTG) Pt will demonstrate DR closure . (07/11/20: DR: Above umbilicus: 5 & 4 above is closed; 3 above is 1.5 finger widths, 2 above is 2.5 finger widths, 1 above is 1.5 finger widths. Below umbilicus: 4 & 3 is closed; 2 is 1.5 shallow finger widths; 1 is 2 finger widths) . (Initial DR measurements: Above umbilicus: 5 above is closed at Xyphoid Process; 4 above is 1.5 finger widths; 3 above is 2.5 finger widths, 2 above is 3 finger widths, 1 above is 3.5 finger widths. Below umbilicus: 4 is closed; 3 0.5 finger widths; 2 is 2 .5 finger widths; 1 is 3.5 finger widths) LTG Duration 07/26/20 (07/18/20: MET GOAL for reduced diastasis & able to perform a TA) Two Impairment Poor management of Urge incontinence Short Term Goal (STG) Pt will be educated in Urge incontinence and bladder retraining. STG Duration GOAL MET. Material Cutter Goal (LTG) Pt will be able to make it to the bathroom at work and home with minimal to no urinary leakage. (06/14/20: No leakage since last session). LTG Duration 07/26/20 (06/17/20: MET GOAL) One Impairment Lacks self care HEP Jail Goal (LTG) Pt will be independent with a self care HEP to promote hip and core strength and PF mobility. LTG Duration 08/30/20 (07/18/20: Progressing) Progress Towards Goals Progress Comments Overall: Goal #1 Progressing HEP as appropriate. Goal #2 MET Goal #3 STG MET. LTG: MET, but updated goal. Goal #4: Improved PF strength: Left 1/5 (was 2/5), right 1/5 (was 0/5), Anterior 1/5 (was 0/5), Posterior (was 1/5). Goal #5 MET GOAL. Goal #6 initially MET, but updated goal. Overall Hip strength has increased 1/2 grade with hip Flex, ER/IR and more than 1/2 grade with AD. Assessment Summary Assessment Pt has done well with therapy but could benefit from continued physical therapy to further improve PF strength and progress her with core stability and assist with progression to closure of her diastasis rectus and return to prior active lifestyle without urinary leakage. Today she demonstrates improved TA awareness and core stability with her performing a TA contraction prior to ex without needing v. cuing. Overall pt shows improved PF strength. Endurance is less when isolating from substitute muscles (5 sec hold initially to 2 sec with PF in isolation ), but Quick contraction endurance has improved from 2 to 6 contractions prior to fatigue. Physical Therapy Plan Frequency and Duration Frequency of Treatment 1x/Week Plan of Care Start Date 05/13/20 Plan of Care End Date 08/30/20 Next Visit Focus/Plan Next Note Type Treatment Note Next Visit Plan EMG biofeedback assessment, ending with PF awareness training. Review HEP of: progressive core strengthening and progress to leg slide if appropriate. Progress TA strengthening of roll in/outs, HEP for improving R hip AD strength & ?ROM.
--- NOTE | 2020-07-18 16:49 | PT.OTN ---
Current Diagnoses Other specified disorders of muscle (07/18/20) Stress incontinence (female) (male) (07/18/20) Abnormal posture (07/18/20) Physical Therapy Treatment Note PT-OP-A Visit Information Start: 05/09/20 21:10 Freq: Status: Active Protocol: Document 07/18/20 15:04 LRN (Rec: 07/18/20 16:42 LRN [id number]) Out-Patient Physical Therapy Visit Information Visit Information Visit Type Progress Note Visit Start Time 15:08 Visit Stop Time 16:08 Total Visit Minutes 60 Visit Number 10 Evaluation Information Evaluation Date 05/13/20 Precautions Precautions None PT-OP-B Current Condition Start: 05/09/20 21:10 Freq: Status: Active Protocol: Document 05/13/20 08:57 LRN (Rec: 05/13/20 09:52 LRN [id number]) Current Condition History of Current Condition Onset Date 06/2018 History of Current Condition Childbirth of son in 04/2018 with a lot of tearing. Currently notices leakage with strong urge while trying to get into her house and after running. Sometimes she leaks during running, but mainly immediately afterwards. She is running 2x/week for 2-3 miles (1/2 hour). Was occasionally running before (2-3x/month, 1-2 miles). Denies constipation and denies leakage with cough or sneeze or activity when no urge is present. Leakage only with strong urge, Prior Treatments and Tests None Developmental History Developmental History See above Treatment Goals Patient/Caregiver Goals Goal is to have more control of her urine and to not wet underwear when trying to control urine. Prior Functional Status Baseline Function- ADL's Independent Baseline Function- Mobility Independent Baseline Function- Recreation/Hobbies Ran 2-3x/month, 1-2 mile runs. Current Functional Impairments (Reported) Functional Limitations- ADL's Unable to control urine with a strong urge. 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 Functional Limitations- Recreation/ Trickle of urinary leakage Hobbies during running and not able to maintain continence after running or if drinking water after running. 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 Stopped 2 weeks ago, milk production still present. PT-OP-C Subjective Start: 05/09/20 21:10 Freq: Status: Active Protocol: Document 07/18/20 15:04 LRN (Rec: 07/18/20 16:42 LRN [id number]) OP-PT Subjective Patient Comments Patient Comments No leaks, not running yet. PT-OP-G Mobility & Gait Start: 05/09/20 21:10 Freq: Status: Active Protocol: Document 05/13/20 08:57 LRN (Rec: 05/13/20 18:37 LRN [id number]) OP Mobility Evaluation Transfers Bed to Chair Transfers Transfers to supine by lying straight back and to sitting by a sit up motion. PT-OP-I Pelvic Floor Start: 05/09/20 21:10 Freq: Status: Active Protocol: Document 07/18/20 15:04 LRN (Rec: 07/18/20 16:42 LRN [id number]) Pelvic Floor Assessment Contraction Ability Voluntary Contraction Weak Manual Muscle Testing Left 1 Manual Muscle Testing Right 1 Manual Muscle Testing Anterior 1 Manual Muscle Testing Posterior 3 Muscle Endurance (Seconds) 2 Number of Quick Contractions In 10 6 Seconds PT-OP-J Posture/Palpation/Skin Start: 05/09/20 21:10 Freq: Status: Active Protocol: Document 05/13/20 08:57 LRN (Rec: 05/13/20 18:37 LRN [id number]) Posture Evaluation Position Standing Evaluation View All positions Head/C-Spine Posture Side Bent Left L-Spine Posture Rotation Right,Increased Lordosis Shoulder Posture (L) Elevated Pelvis Posture Anteriorly Tilted Knee Posture (L) Genu Valgus,(R) Genu Valgus Foot Arch (L) No Arch,(R) No Arch PT-OP-K Range of Motion Start: 05/09/20 21:10 Freq: Status: Active Protocol: Document 06/17/20 10:36 LRN (Rec: 06/17/20 18:21 LRN [id number]) Hip Goniometric Range of Motion Hip Right Passive Testing Position Supine Internal Rotation 25 External Rotation 75 Left Passive Testing Position Supine Internal Rotation 40 External Rotation 80 PT-OP-M Strength Start: 05/09/20 21:10 Freq: Status: Active Protocol: Document 07/04/20 15:10 LRN (Rec: 07/04/20 16:36 LRN [id number]) Hip Strength Hip Manual Muscle Testing Right Flexion (L2) 5 Normal Extension (S1) 5 Normal Abduction 5 Normal Adduction 4+ Good+ External Rotation 4+ Good+ Internal Rotation 3+ Fair+ Left Flexion (L2) 5 Normal Extension (S1) 5 Normal Abduction 5 Normal Adduction 4+ Good+ External Rotation 4+ Good+ Internal Rotation 3+ Fair+ PT-OP-Q Treatments Start: 05/09/20 21:10 Freq: Status: Active Protocol: Document 07/18/20 15:04 LRN (Rec: 07/18/20 16:42 LRN [id number]) Therapeutic Exercises Sidelying Exercises Hip AB/AD Sidelying Exercise Name Hip AD Side left Reps/Minutes 10x 3 Reverse Clam Sidelying Exercise Name TA/Knees bent 45 deg's, lifting top foot w/o & w/PF contraction Side bilateral Reps/Minutes 10x 3, Alternating PF contraction ex. Comments Review cuing for TA stab to prevent trunk rot, & breath work. Standing Exercises Marcos hip AD w/PF contraction Standing Exercise Name Marcos hip AD w/PF contraction/ breathing Side left Reps/Minutes 3' Comments Extra time needed for proper understanding & performance of ex Hip AD w/PF contraction Standing Exercise Name Hip AD w/PF contraction/with & without T-Band/proper breathing Side left Reps/Minutes 7' Active Hamstring stretch Standing Exercise Name Active Hamstring stretch w/PF contraction Reps/Minutes 10x Neuro Re-Education Treatment Other Activities Biofeedback for PF awareness Details Biofeedback for PF awareness training (intensity 12). Reps/Duration 25' Comments Had a difficult time getting pt to feel the electrode and getting intensity level to obtain a PF contraction. Repositioning of pt, and electrode a couple times before pt was able to be aware of getting a PF contraction. Once obtained she was able to use Estim for PF ms training x 10' on/off 10:20 secs. Self-Care/Home Management Treatment Education Patient Education Home Exercise Program Activities Self-Care/Home Management Activities I/S pt to increase number of repetitions with PF contraction to 10 with pre issued Clamshell/Reverse clamshell. Issue & reviewed HEP: L hip AD sidelie and standing for L lateral wall PF strengthening. PT-OP-T Assessment and Plan Start: 05/09/20 21:10 Freq: Status: Active Protocol: Document 07/18/20 15:04 LRN (Rec: 07/18/20 16:42 LRN [id number]) Physical Therapy Assessment Goals Six Impairment Poor knowledge of proper transfers and clothing wear to minimize UI. Short Term Goal (STG) Pt will be educated in proper transfers and clothing to minimize onset of Urinary Incontinence. STG Duration 05/21/20 (05/27/20: MET GOAL) Five Impairment Decreased PF endurance of 5 sec's in supine [facility] Goal (LTG) Improve PF endurance to 10 sec 's in supine. (06/17/20: Quick Flicks: 8 reps before fatigue on R lateral lara.) LTG Duration 08/30/20 (06/17/20: MET GOAL, but Quick Flicks decr'd endurance) Four Impairment Decreased PF strength rated 2/ 5 in supine [facility] Goal (LTG) Improve PF strength to 3/5 in supine. 07/11/20: L lateral wall is 1/ 5, R lateral wall is 1/5, Anterior is 1/5, Posterior is 3/5. (05/13/20 EVAL: L lateral wall is 2/5, R lateral wall is 0/5, Anterior is 0/5, Posterior is 1/5 LTG Duration 08/30/20 (07/18/20: Improving) Three Impairment Poor core stability due to severe Diastasis Rectus. Short Term Goal (STG) Pt will be educated in proper transfers and use of K-tape to assist with DR closure through self management. STG Duration 05/27/20 (07/04/20: MET GOAL) [facility] Goal (LTG) Pt will demonstrate DR closure . (07/11/20: DR: Above umbilicus: 5 & 4 above is closed; 3 above is 1.5 finger widths, 2 above is 2.5 finger widths, 1 above is 1.5 finger widths. Below umbilicus: 4 & 3 is closed; 2 is 1.5 shallow finger widths; 1 is 2 finger widths) . (Initial DR measurements: Above umbilicus: 5 above is closed at Xyphoid Process; 4 above is 1.5 finger widths; 3 above is 2.5 finger widths, 2 above is 3 finger widths, 1 above is 3.5 finger widths. Below umbilicus: 4 is closed; 3 0.5 finger widths; 2 is 2 .5 finger widths; 1 is 3.5 finger widths) LTG Duration 08/30/20 (07/18/20: MET GOAL for reduced diastasis & able to perform a TA) Two Impairment Poor management of Urge incontinence Short Term Goal (STG) Pt will be educated in Urge incontinence and bladder retraining. STG Duration GOAL MET. Stick Welder Goal (LTG) Pt will be able to make it to the bathroom at work and home with minimal to no urinary leakage. (06/14/20: No leakage since last session). LTG Duration 07/26/20 (06/17/20: MET GOAL) One Impairment Lacks self care HEP [facility] Goal (LTG) Pt will be independent with a self care HEP to promote hip and core strength and PF mobility. LTG Duration 08/30/20 (07/18/20: Progressing) Progress Towards Goals Progress Comments Overall: Goal #1 Progressing HEP as appropriate. Goal #2 MET Goal #3 STG MET. LTG: MET, but updated goal. Goal #4: Improved PF strength: Left 1/5 (was 2/5), right 1/5 (was 0/5), Anterior 1/5 (was 0/5), Posterior (was 1/5). Goal #5 MET GOAL. Goal #6 initially MET, but updated goal. Overall Hip strength has increased 1/2 grade with hip Flex, ER/IR and more than 1/2 grade with AD. Assessment Summary Assessment Pt has done well with therapy but could benefit from continued physical therapy to further improve PF strength and progress her with core stability and assist with progression to closure of her diastasis rectus and return to prior active lifestyle without urinary leakage. Today she demonstrates improved TA awareness and core stability with her performing a TA contraction prior to ex without needing v. cuing. Overall pt shows improved PF strength. Endurance is less when isolating from substitute muscles (5 sec hold initially to 2 sec with PF in isolation ), but Quick contraction endurance has improved from 2 to 6 contractions prior to fatigue. Physical Therapy Plan Frequency and Duration Frequency of Treatment 1x/Week Plan of Care Start Date 05/13/20 Plan of Care End Date 08/30/20 Next Visit Focus/Plan Next Note Type Treatment Note Next Visit Plan EMG biofeedback assessment, ending with PF awareness training. Review HEP of: progressive core strengthening and progress to leg slide if appropriate. Progress TA strengthening of roll in/outs, HEP for improving R hip AD strength & ?ROM.
--- NOTE | 2020-07-18 16:50 | PT.OPPOC ---
Physical, Occupational & Speech Therapy At [facility] Current Diagnoses Other specified disorders of muscle (07/18/20) Stress incontinence (female) (male) (07/18/20) Abnormal posture (07/18/20) Visit Care Team Role Provider Type Amy Sanchez DO Primary Care Provider Physician Specialty: Family Practice Address: [address] [place] [address], [address], [address] Email: [email or web address] Abdelrahman Palumbo MD Attending Provider Physician Referring Provider Specialty: TIME LOCK EXPERT Address: [address] [place] [address] [place] [address], [id number] Email: [email or web address] Plan Of Care PT-OP-T Assessment and Plan Start: 05/09/20 21:10 Freq: Status: Active Protocol: Document 07/18/20 15:04 LRN (Rec: 07/18/20 16:42 LRN [id number]) Physical Therapy Assessment Goals Six Impairment Poor knowledge of proper transfers and clothing wear to minimize UI. Short Term Goal (STG) Pt will be educated in proper transfers and clothing to minimize onset of Urinary Incontinence. STG Duration 05/21/20 (05/27/20: MET GOAL) Five Impairment Decreased PF endurance of 5 sec's in supine Wood Shingle Roofer Goal (LTG) Improve PF endurance to 10 sec 's in supine. (06/17/20: Quick Flicks: 8 reps before fatigue on R lateral lara.) LTG Duration 08/30/20 (06/17/20: MET GOAL, but Quick Flicks decr'd endurance) Four Impairment Decreased PF strength rated 2/ 5 in supine Wood Shingle Roofer Goal (LTG) Improve PF strength to 3/5 in supine. 07/11/20: L lateral wall is 1/ 5, R lateral wall is 1/5, Anterior is 1/5, Posterior is 3/5. (05/13/20 EVAL: L lateral wall is 2/5, R lateral wall is 0/5, Anterior is 0/5, Posterior is 1/5 LTG Duration 08/30/20 (07/18/20: Improving) Three Impairment Poor core stability due to severe Diastasis Rectus. Short Term Goal (STG) Pt will be educated in proper transfers and use of K-tape to assist with DR closure through self management. STG Duration 05/27/20 (07/04/20: MET GOAL) Wood Shingle Roofer Goal (LTG) Pt will demonstrate DR closure . (07/11/20: DR: Above umbilicus: 5 & 4 above is closed; 3 above is 1.5 finger widths, 2 above is 2.5 finger widths, 1 above is 1.5 finger widths. Below umbilicus: 4 & 3 is closed; 2 is 1.5 shallow finger widths; 1 is 2 finger widths) . (Initial DR measurements: Above umbilicus: 5 above is closed at Xyphoid Process; 4 above is 1.5 finger widths; 3 above is 2.5 finger widths, 2 above is 3 finger widths, 1 above is 3.5 finger widths. Below umbilicus: 4 is closed; 3 0.5 finger widths; 2 is 2 .5 finger widths; 1 is 3.5 finger widths) LTG Duration 08/30/20 (07/18/20: MET GOAL for reduced diastasis & able to perform a TA) Two Impairment Poor management of Urge incontinence Short Term Goal (STG) Pt will be educated in Urge incontinence and bladder retraining. STG Duration GOAL MET. Jail Goal (LTG) Pt will be able to make it to the bathroom at work and home with minimal to no urinary leakage. (06/14/20: No leakage since last session). LTG Duration 07/26/20 (06/17/20: MET GOAL) One Impairment Lacks self care HEP Wood Shingle Roofer Goal (LTG) Pt will be independent with a self care HEP to promote hip and core strength and PF mobility. LTG Duration 08/30/20 (07/18/20: Progressing) Progress Towards Goals Progress Comments Overall: Goal #1 Progressing HEP as appropriate. Goal #2 MET Goal #3 STG MET. LTG: MET, but updated goal. Goal #4: Improved PF strength: Left 1/5 (was 2/5), right 1/5 (was 0/5), Anterior 1/5 (was 0/5), Posterior (was 1/5). Goal #5 MET GOAL. Goal #6 initially MET, but updated goal. Overall Hip strength has increased 1/2 grade with hip Flex, ER/IR and more than 1/2 grade with AD. Assessment Summary Assessment Pt has done well with therapy but could benefit from continued physical therapy to further improve PF strength and progress her with core stability and assist with progression to closure of her diastasis rectus and return to prior active lifestyle without urinary leakage. Today she demonstrates improved TA awareness and core stability with her performing a TA contraction prior to ex without needing v. cuing. Overall pt shows improved PF strength. Endurance is less when isolating from substitute muscles (5 sec hold initially to 2 sec with PF in isolation ), but Quick contraction endurance has improved from 2 to 6 contractions prior to fatigue. Physical Therapy Plan Frequency and Duration Frequency of Treatment 1x/Week Plan of Care Start Date 05/13/20 Plan of Care End Date 08/30/20 Next Visit Focus/Plan Next Note Type Treatment Note Next Visit Plan EMG biofeedback assessment, ending with PF awareness training. Review HEP of: progressive core strengthening and progress to leg slide if appropriate. Progress TA strengthening of roll in/outs, HEP for improving R hip AD strength & ?ROM. Plan of Care Dates Plan of Care Start Date 05/13/20 Plan of Care End Date 08/30/20 Electronically Signed by: Lena Myers, PT 07/18/20 [id number] Please Sign and Return: I have reviewed this Plan of Care and certify that the skilled therapy services above are required to meet the patient?s needs. Physician Signature Date Printed Name and Credentials Clinical Instructor Signature Printed Name and Credentials
--- NOTE | 2020-07-26 15:54 | PT.OTN ---
Current Diagnoses Other specified disorders of muscle (07/26/20) Stress incontinence (female) (male) (07/26/20) Abnormal posture (07/26/20) Physical Therapy Treatment Note PT-OP-A Visit Information Start: 05/09/20 21:10 Freq: Status: Active Protocol: Document 07/26/20 08:16 LRN (Rec: 07/26/20 09:10 LRN [id number]) Out-Patient Physical Therapy Visit Information Visit Information Visit Type Treatment Note Visit Note 1 after PN Visit Start Time 08:16 Visit Stop Time 09:07 Total Visit Minutes 51 Visit Number 11 Evaluation Information Evaluation Date 05/13/20 Precautions Precautions None PT-OP-B Current Condition Start: 05/09/20 21:10 Freq: Status: Active Protocol: Document 05/13/20 08:57 LRN (Rec: 05/13/20 09:52 LRN [id number]) Current Condition History of Current Condition Onset Date 06/2018 History of Current Condition Childbirth of son in 04/2018 with a lot of tearing. Currently notices leakage with strong urge while trying to get into her house and after running. Sometimes she leaks during running, but mainly immediately afterwards. She is running 2x/week for 2-3 miles (1/2 hour). Was occasionally running before (2-3x/month, 1-2 miles). Denies constipation and denies leakage with cough or sneeze or activity when no urge is present. Leakage only with strong urge, Prior Treatments and Tests None Developmental History Developmental History See above Treatment Goals Patient/Caregiver Goals Goal is to have more control of her urine and to not wet underwear when trying to control urine. Prior Functional Status Baseline Function- ADL's Independent Baseline Function- Mobility Independent Baseline Function- Recreation/Hobbies Ran 2-3x/month, 1-2 mile runs. Current Functional Impairments (Reported) Functional Limitations- ADL's Unable to control urine with a strong urge. 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 Functional Limitations- Recreation/ Trickle of urinary leakage Hobbies during running and not able to maintain continence after running or if drinking water after running. 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 Stopped 2 weeks ago, milk production still present. PT-OP-C Subjective Start: 05/09/20 21:10 Freq: Status: Active Protocol: Document 07/26/20 08:16 LRN (Rec: 07/26/20 09:10 LRN [id number]) OP-PT Subjective Patient Comments Patient Comments No leaking with activities or urges. PT-OP-G Mobility & Gait Start: 05/09/20 21:10 Freq: Status: Active Protocol: Document 05/13/20 08:57 LRN (Rec: 05/13/20 18:37 LRN [id number]) OP Mobility Evaluation Transfers Bed to Chair Transfers Transfers to supine by lying straight back and to sitting by a sit up motion. PT-OP-I Pelvic Floor Start: 05/09/20 21:10 Freq: Status: Active Protocol: Document 07/26/20 08:16 LRN (Rec: 07/26/20 09:10 LRN [id number]) Pelvic Floor Assessment SEMG (uV) Baseline 2.9 Quick Contraction 11.8 10 Second Contraction 13.9 Recruitment Pattern Good Relaxation Fair Holding Fair Stability of Hold Fair SEMG Stability of Rest Fair Contraction Ability Voluntary Relaxation Weak Manual Muscle Testing Left 2 Manual Muscle Testing Right 2 Manual Muscle Testing Posterior 3 Muscle Endurance (Seconds) 3 Number of Quick Contractions In 10 3 Seconds Comments Pelvic Floor Comments Ms endurance and quick contractions per EMG biofeedback assessment. MMT per manual palpation. PT-OP-J Posture/Palpation/Skin Start: 05/09/20 21:10 Freq: Status: Active Protocol: Document 05/13/20 08:57 LRN (Rec: 05/13/20 18:37 LRN [id number]) Posture Evaluation Position Standing Evaluation View All positions Head/C-Spine Posture Side Bent Left L-Spine Posture Rotation Right,Increased Lordosis Shoulder Posture (L) Elevated Pelvis Posture Anteriorly Tilted Knee Posture (L) Genu Valgus,(R) Genu Valgus Foot Arch (L) No Arch,(R) No Arch PT-OP-K Range of Motion Start: 05/09/20 21:10 Freq: Status: Active Protocol: Document 06/17/20 10:36 LRN (Rec: 06/17/20 18:21 LRN [id number]) Hip Goniometric Range of Motion Hip Right Passive Testing Position Supine Internal Rotation 25 External Rotation 75 Left Passive Testing Position Supine Internal Rotation 40 External Rotation 80 PT-OP-M Strength Start: 05/09/20 21:10 Freq: Status: Active Protocol: Document 07/04/20 15:10 LRN (Rec: 07/04/20 16:36 LRN [id number]) Hip Strength Hip Manual Muscle Testing Right Flexion (L2) 5 Normal Extension (S1) 5 Normal Abduction 5 Normal Adduction 4+ Good+ External Rotation 4+ Good+ Internal Rotation 3+ Fair+ Left Flexion (L2) 5 Normal Extension (S1) 5 Normal Abduction 5 Normal Adduction 4+ Good+ External Rotation 4+ Good+ Internal Rotation 3+ Fair+ PT-OP-Q Treatments Start: 05/09/20 21:10 Freq: Status: Active Protocol: Document 07/26/20 08:16 LRN (Rec: 07/26/20 09:10 LRN [id number]) Therapeutic Exercises Supine Exercises Bridge w/hip Ad Supine Exercise Name Bridge with PF contraction/ Ball squeeze and w/o ball squeeze Reps/Minutes 3' Sidelying Exercises Hip AB/AD Sidelying Exercise Name Hip AD/PF & TA contraction Side bilateral Reps/Minutes 10x 3 Manual Therapy Treatment Taping K-tape Body Location Abdomen Treatment Focus Correction of Diastasis Rectus Type of Tape Kinesio Tape Skin Inspection Good Comments Pt educated in self K-tape method. Neuro Re-Education Treatment Other Activities Biofeedback for PF awareness Details Biofeedback for PF awareness training (intensity 12). Reps/Duration 15 Comments See SEMG readings under PF Self-Care/Home Management Treatment Education Other Education Educated pt in ex's for pre- running to be done at a later time, on T-Ball standing and on elevations. Activities Self-Care/Home Management Activities Reviewed self care program of DR protection, discussed clothing wear and importance of TA contraction with movements and for strengthening of trunk rotators. PT-OP-T Assessment and Plan Start: 05/09/20 21:10 Freq: Status: Active Protocol: Document 07/26/20 08:16 LRN (Rec: 07/26/20 09:10 LRN [id number]) Physical Therapy Assessment Goals Six Impairment Poor knowledge of proper transfers and clothing wear to minimize UI. Short Term Goal (STG) Pt will be educated in proper transfers and clothing to minimize onset of Urinary Incontinence. STG Duration 05/21/20 (05/27/20: MET GOAL) Five Impairment Decreased PF endurance of 5 sec's in supine Graduate Advisor Goal (LTG) Improve PF endurance to 10 sec 's in supine. (06/17/20: Quick Flicks: 8 reps before fatigue on R lateral lara.) LTG Duration 08/30/20 (06/17/20: MET GOAL, but Quick Flicks decr'd endurance) Three Impairment Poor core stability due to severe Diastasis Rectus. Short Term Goal (STG) Pt will be educated in proper transfers and use of K-tape to assist with DR closure through self management. STG Duration 05/27/20 (07/04/20: MET GOAL) Graduate Advisor Goal (LTG) Pt will demonstrate DR closure . (07/26/20: DR: Above umbilicus: 5 & 4 above is ( same) closed; 3 above is ( same) 1.5 finger widths, 2 above is (same) 2.5 finger widths, 1 above is 2.75 finger widths. Below umbilicus: 4 & 3 is (same) closed; 2 is (same) 1.5 shallow finger widths; 1 is ( same) 2.75 finger widths). (Initial DR measurements: Above umbilicus: 5 above is closed at Xyphoid Process; 4 above is 1.5 finger widths; 3 above is 2.5 finger widths, 2 above is 3 finger widths, 1 above is 3.5 finger widths. Below umbilicus: 4 is closed; 3 0.5 finger widths; 2 is 2 .5 finger widths; 1 is 3.5 finger widths) LTG Duration 08/30/20 (07/18/20: MET GOAL for reduced diastasis & able to perform a TA) Two Impairment Poor management of Urge incontinence Short Term Goal (STG) Pt will be educated in Urge incontinence and bladder retraining. STG Duration GOAL MET. Graduate Advisor Goal (LTG) Pt will be able to make it to the bathroom at work and home with minimal to no urinary leakage. (06/14/20: No leakage since last session). LTG Duration 07/26/20 (06/17/20: MET GOAL) One Impairment Lacks self care HEP Fdc Goal (LTG) Pt will be independent with a self care HEP to promote hip and core strength and PF mobility. LTG Duration 08/30/20 (07/18/20: Progressing) Progress Towards Goals Progress Comments Pt DR worse 1-2 above umbilicus, otherwise remains same. Pt continues to be urinary leakage free. Per EMG biofeedback, her strength is pretty good at 13.9 uV's for long holds and 11.8 uV's for quick flicks, resting tone is good. Assessment Summary Assessment DR larger around umbilicus, (1 below and 2 above, then same further distally above, almost closed below. PF release of lateral wall R> L. Slightly tight still on left. PF strength was 2/5 weakly on R, stronger on L (2+/5). Need to strengthen PF right lateral wall more than right and anteriorly, and she needs to improve endurance with quick flicks and long holds. Physical Therapy Plan Frequency and Duration Frequency of Treatment 1 in 3 weeks Plan of Care Start Date 05/13/20 Plan of Care End Date 08/30/20 Next Visit Focus/Plan Next Note Type Treatment Note Next Visit Plan Recheck DR and PF lateral wall strength, EMG biofeedback for strengthening long holds and quick flicks. Review HEP of: progressive core strengthening and progress core stab with leg slide. Progress TA strengthening of roll in/outs, HEP for improving R hip AD strength & ?ROM.
--- NOTE | 2020-08-12 17:12 | PT.OTN ---
Current Diagnoses Other specified disorders of muscle (08/12/20) Stress incontinence (female) (male) (08/12/20) Abnormal posture (08/12/20) Physical Therapy Treatment Note PT-OP-A Visit Information Start: 05/09/20 21:10 Freq: Status: Active Protocol: Document 08/12/20 08:17 LRN (Rec: 08/12/20 09:08 LRN [id number]) Out-Patient Physical Therapy Visit Information Visit Information Visit Type Treatment Note Visit Note 2 after PN Visit Start Time 08:17 Visit Stop Time 09:06 Total Visit Minutes 49 Visit Number 12 Evaluation Information Evaluation Date 05/13/20 Precautions Precautions None PT-OP-B Current Condition Start: 05/09/20 21:10 Freq: Status: Active Protocol: Document 05/13/20 08:57 LRN (Rec: 05/13/20 09:52 LRN [id number]) Current Condition History of Current Condition Onset Date 06/2018 History of Current Condition Childbirth of son in 04/2018 with a lot of tearing. Currently notices leakage with strong urge while trying to get into her house and after running. Sometimes she leaks during running, but mainly immediately afterwards. She is running 2x/week for 2-3 miles (1/2 hour). Was occasionally running before (2-3x/month, 1-2 miles). Denies constipation and denies leakage with cough or sneeze or activity when no urge is present. Leakage only with strong urge, Prior Treatments and Tests None Developmental History Developmental History See above Treatment Goals Patient/Caregiver Goals Goal is to have more control of her urine and to not wet underwear when trying to control urine. Prior Functional Status Baseline Function- ADL's Independent Baseline Function- Mobility Independent Baseline Function- Recreation/Hobbies Ran 2-3x/month, 1-2 mile runs. Current Functional Impairments (Reported) Functional Limitations- ADL's Unable to control urine with a strong urge. 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 Functional Limitations- Recreation/ Trickle of urinary leakage Hobbies during running and not able to maintain continence after running or if drinking water after running. 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 Stopped 2 weeks ago, milk production still present. PT-OP-C Subjective Start: 05/09/20 21:10 Freq: Status: Active Protocol: Document 08/12/20 08:17 LRN (Rec: 08/12/20 09:08 LRN [id number]) OP-PT Subjective Patient Comments Patient Comments 2 leaks becuse went camping, leaked 1st inb AM. PT-OP-G Mobility & Gait Start: 05/09/20 21:10 Freq: Status: Active Protocol: Document 05/13/20 08:57 LRN (Rec: 05/13/20 18:37 LRN [id number]) OP Mobility Evaluation Transfers Bed to Chair Transfers Transfers to supine by lying straight back and to sitting by a sit up motion. PT-OP-I Pelvic Floor Start: 05/09/20 21:10 Freq: Status: Active Protocol: Document 08/12/20 08:17 LRN (Rec: 08/12/20 09:08 LRN [id number]) Pelvic Floor Assessment SEMG (uV) Baseline 3.7 Contraction Ability Manual Muscle Testing Left 3 Manual Muscle Testing Right 3 Manual Muscle Testing Anterior 0 Manual Muscle Testing Posterior 0 Muscle Endurance (Seconds) 3 Number of Quick Contractions In 10 3 Seconds Comments Pelvic Floor Comments MMT of R lateral wall is slightly weaker than the L, but a lift is felt on both. Increased tone is present on the left. Tenderness is present in the region of the stitiches at 6 O'Clock of the Pelvic Floor clock. PT-OP-J Posture/Palpation/Skin Start: 05/09/20 21:10 Freq: Status: Active Protocol: Document 05/13/20 08:57 LRN (Rec: 05/13/20 18:37 LRN [id number]) Posture Evaluation Position Standing Evaluation View All positions Head/C-Spine Posture Side Bent Left L-Spine Posture Rotation Right,Increased Lordosis Shoulder Posture (L) Elevated Pelvis Posture Anteriorly Tilted Knee Posture (L) Genu Valgus,(R) Genu Valgus Foot Arch (L) No Arch,(R) No Arch PT-OP-K Range of Motion Start: 05/09/20 21:10 Freq: Status: Active Protocol: Document 06/17/20 10:36 LRN (Rec: 06/17/20 18:21 LRN [id number]) Hip Goniometric Range of Motion Hip Right Passive Testing Position Supine Internal Rotation 25 External Rotation 75 Left Passive Testing Position Supine Internal Rotation 40 External Rotation 80 PT-OP-M Strength Start: 05/09/20 21:10 Freq: Status: Active Protocol: Document 07/04/20 15:10 LRN (Rec: 07/04/20 16:36 LRN [id number]) Hip Strength Hip Manual Muscle Testing Right Flexion (L2) 5 Normal Extension (S1) 5 Normal Abduction 5 Normal Adduction 4+ Good+ External Rotation 4+ Good+ Internal Rotation 3+ Fair+ Left Flexion (L2) 5 Normal Extension (S1) 5 Normal Abduction 5 Normal Adduction 4+ Good+ External Rotation 4+ Good+ Internal Rotation 3+ Fair+ PT-OP-Q Treatments Start: 05/09/20 21:10 Freq: Status: Active Protocol: Document 08/12/20 08:17 LRN (Rec: 08/12/20 09:08 LRN [id number]) Therapeutic Exercises Supine Exercises Hip AD w/PF contraction Supine Exercise Name Hip AD w/PF contraction Side right Reps/Minutes 10x Quick, 2x Long hold Bridge w/hip Ad Supine Exercise Name Bridge with PF contraction/ Ball squeeze and w/o ball squeeze Reps/Minutes 3' Bridge with LE roll in/out Supine Exercise Name Bridge with LE roll in/out & TA/PF contraction Resistance Ball & Lev 1 TBand Equipment Used Wedge, Ball & Lev 1 TBand Reps/Minutes 6 Comments V. cuing required for proper sequencing of breathwork, roll of legs in/out Neuro Re-Education Treatment Other Activities Biofeedback for PF awareness Details PF strengthening with EMG biofeedback. Reps/Duration 20' Comments PF contraction quick flicks working on relaxation after contractions and for consistent strength of contractions. PF long hold endurance training, working on consistent holding of PF contraction. PF contractions with bridging for Quick and Long hold contractions, utilizing substitute muscles to help maintain consistency of force of contraction. Baseline resting is 3.7 uV's. With Bridge, quick contraction is 14.1 uV's with rest of 12.3 uV's. Self-Care/Home Management Treatment Activities Self-Care/Home Management Activities I/S pt in home program of hip AD with PF quick flick strengthening R>L, and Long hold contractions in bridge position with rolling knees in /out for long holding and for quick flicks to facilitated anterior and posterior PF and R lateral wall strengthening. PT-OP-T Assessment and Plan Start: 05/09/20 21:10 Freq: Status: Active Protocol: Document 08/12/20 08:17 LRN (Rec: 08/12/20 09:08 LRN [id number]) Physical Therapy Assessment Goals Five Impairment Decreased PF endurance of 5 sec's in supine Clasp Machine Operator Goal (LTG) Improve PF endurance to 10 sec 's in supine. (06/17/20: Quick Flicks: 8 reps before fatigue on R lateral lara.) LTG Duration 08/30/20 (06/17/20: MET GOAL, but Quick Flicks decr'd endurance) Three Impairment Poor core stability due to severe Diastasis Rectus. Short Term Goal (STG) Pt will be educated in proper transfers and use of K-tape to assist with DR closure through self management. STG Duration 05/27/20 (07/04/20: MET GOAL) Longterm Goal (LTG) Pt will demonstrate DR closure . (07/26/20: DR: Above umbilicus: 5 & 4 above is ( same) closed; 3 above is ( same) 1.5 finger widths, 2 above is (same) 2.5 finger widths, 1 above is 2.75 finger widths. Below umbilicus: 4 & 3 is (same) closed; 2 is (same) 1.5 shallow finger widths; 1 is ( same) 2.75 finger widths). (Initial DR measurements: Above umbilicus: 5 above is closed at Xyphoid Process; 4 above is 1.5 finger widths; 3 above is 2.5 finger widths, 2 above is 3 finger widths, 1 above is 3.5 finger widths. Below umbilicus: 4 is closed; 3 0.5 finger widths; 2 is 2 .5 finger widths; 1 is 3.5 finger widths) LTG Duration 08/30/20 (07/18/20: MET GOAL for reduced diastasis & able to perform a TA) One Impairment Lacks self care HEP Clasp Machine Operator Goal (LTG) Pt will be independent with a self care HEP to promote hip and core strength and PF mobility. LTG Duration 08/30/20 (07/18/20: Progressing) Assessment Summary Assessment DR larger around umbilicus above 1 & 2 and below 1. PF strength is palpable at 3/5 except R is mildly weaker than the L. Her PF strength posterior < anterior in strength. Pt needs equal strengthening of both. Pt appeared to have greater tone on the PF: L lateral wall than R. She has tenderness at 6 O 'Clock that may be hindering her strength of contraction and may need STM to reduce and teaching for self mob to improve the posterior PF strength. Physical Therapy Plan Frequency and Duration Frequency of Treatment 1x/Week Plan of Care Start Date 05/13/20 Plan of Care End Date 08/30/20 Next Visit Focus/Plan Next Note Type Treatment Note Next Visit Plan STM at healed scar at PF 6 O' Clock and teach pt self massage to improve posterior PF strength. EMG biofeedback awareness training on proper PF contraction (E-Stim) and for strengthening long holds and quick flicks. Review HEP of: progressive core strengthening and progress core stab with leg slide. Progress TA strengthening of roll in/outs, HEP for improving R hip AD strength & ?ROM.
--- NOTE | 2020-08-22 17:20 | PT.OTN ---
Current Diagnoses Other specified disorders of muscle (08/22/20) Stress incontinence (female) (male) (08/22/20) Abnormal posture (08/22/20) Physical Therapy Treatment Note PT-OP-A Visit Information Start: 05/09/20 21:10 Freq: Status: Active Protocol: Document 08/22/20 08:17 LRN (Rec: 08/22/20 09:02 LRN [id number]) Out-Patient Physical Therapy Visit Information Visit Information Visit Type Treatment Note Visit Start Time 08:17 Visit Stop Time 09:02 Total Visit Minutes 45 Visit Number 13 Evaluation Information Evaluation Date 05/13/20 Precautions Precautions None PT-OP-B Current Condition Start: 05/09/20 21:10 Freq: Status: Active Protocol: Document 05/13/20 08:57 LRN (Rec: 05/13/20 09:52 LRN [id number]) Current Condition History of Current Condition Onset Date 06/2018 History of Current Condition Childbirth of son in 04/2018 with a lot of tearing. Currently notices leakage with strong urge while trying to get into her house and after running. Sometimes she leaks during running, but mainly immediately afterwards. She is running 2x/week for 2-3 miles (1/2 hour). Was occasionally running before (2-3x/month, 1-2 miles). Denies constipation and denies leakage with cough or sneeze or activity when no urge is present. Leakage only with strong urge, Prior Treatments and Tests None Developmental History Developmental History See above Treatment Goals Patient/Caregiver Goals Goal is to have more control of her urine and to not wet underwear when trying to control urine. Prior Functional Status Baseline Function- ADL's Independent Baseline Function- Mobility Independent Baseline Function- Recreation/Hobbies Ran 2-3x/month, 1-2 mile runs. Current Functional Impairments (Reported) Functional Limitations- ADL's Unable to control urine with a strong urge. 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 Functional Limitations- Recreation/ Trickle of urinary leakage Hobbies during running and not able to maintain continence after running or if drinking water after running. 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 Stopped 2 weeks ago, milk production still present. PT-OP-C Subjective Start: 05/09/20 21:10 Freq: Status: Active Protocol: Document 08/22/20 08:17 LRN (Rec: 08/22/20 09:02 LRN [id number]) OP-PT Subjective Patient Comments Patient Comments Urinary leakage x 1, not totally leaked to underwear; thinks it was just because she waited too long. PT-OP-G Mobility & Gait Start: 05/09/20 21:10 Freq: Status: Active Protocol: Document 05/13/20 08:57 LRN (Rec: 05/13/20 18:37 LRN [id number]) OP Mobility Evaluation Transfers Bed to Chair Transfers Transfers to supine by lying straight back and to sitting by a sit up motion. PT-OP-I Pelvic Floor Start: 05/09/20 21:10 Freq: Status: Active Protocol: Document 08/22/20 08:17 LRN (Rec: 08/22/20 09:02 LRN [id number]) Pelvic Floor Assessment SEMG (uV) Baseline 4.0 Quick Contraction 13.4 10 Second Contraction 10.3 Recruitment Pattern Good Relaxation Fair Holding Fair Stability of Hold Good Comments Pelvic Floor Comments 08/22/20: DR: Above umbilicus: 3 above is (same) 1.5 finger widths, 2 above is 1.5 finger widths, 1 above is 1.75 finger widths. Below umbilicus: 2 is 0.5 shallow finger widths; 1 is ( same) 2.75 finger widths PT-OP-J Posture/Palpation/Skin Start: 05/09/20 21:10 Freq: Status: Active Protocol: Document 05/13/20 08:57 LRN (Rec: 05/13/20 18:37 LRN [id number]) Posture Evaluation Position Standing Evaluation View All positions Head/C-Spine Posture Side Bent Left L-Spine Posture Rotation Right,Increased Lordosis Shoulder Posture (L) Elevated Pelvis Posture Anteriorly Tilted Knee Posture (L) Genu Valgus,(R) Genu Valgus Foot Arch (L) No Arch,(R) No Arch PT-OP-K Range of Motion Start: 05/09/20 21:10 Freq: Status: Active Protocol: Document 06/17/20 10:36 LRN (Rec: 06/17/20 18:21 LRN [id number]) Hip Goniometric Range of Motion Hip Right Passive Testing Position Supine Internal Rotation 25 External Rotation 75 Left Passive Testing Position Supine Internal Rotation 40 External Rotation 80 PT-OP-M Strength Start: 05/09/20 21:10 Freq: Status: Active Protocol: Document 07/04/20 15:10 LRN (Rec: 07/04/20 16:36 LRN [id number]) Hip Strength Hip Manual Muscle Testing Right Flexion (L2) 5 Normal Extension (S1) 5 Normal Abduction 5 Normal Adduction 4+ Good+ External Rotation 4+ Good+ Internal Rotation 3+ Fair+ Left Flexion (L2) 5 Normal Extension (S1) 5 Normal Abduction 5 Normal Adduction 4+ Good+ External Rotation 4+ Good+ Internal Rotation 3+ Fair+ PT-OP-Q Treatments Start: 05/09/20 21:10 Freq: Status: Active Protocol: Document 08/22/20 08:17 LRN (Rec: 08/22/20 09:02 LRN [id number]) Therapeutic Exercises Supine Exercises Happy Baby Pose Supine Exercise Name Happy Baby Pose Reps/Minutes 3' Comments Extra time for proper positioning. Manual Therapy Treatment Soft Tissue Mobilization PF scar Body Location PF scar @ 6 O'Clock, 1.5 knuckle deep Mobilization Type Myofascial Release Comments Also pt taught self-mob STM externally (on regular skin) and internally per v. cuing. Neuro Re-Education Treatment Other Activities Biofeedback for PF awareness Details EMG Biofeedback for PF strengthening with extra attention to relaxation. Reps/Duration 30' Comments Quick Flicks, pt needed cuing for relaxation after contractions. Long Holds, pt needed cuing to relax and to hold contraction . PT-OP-T Assessment and Plan Start: 05/09/20 21:10 Freq: Status: Active Protocol: Document 08/22/20 08:17 LRN (Rec: 08/22/20 09:02 LRN [id number]) Physical Therapy Assessment Goals Five Impairment Decreased PF endurance of 5 sec's in supine Jail Goal (LTG) Improve PF endurance to 10 sec 's in supine. (06/17/20: Quick Flicks: 8 reps before fatigue on R lateral lara.) LTG Duration 08/30/20 (06/17/20: MET GOAL, but Quick Flicks decr'd endurance) Four Impairment Decreased PF strength rated 2/ 5 in supine Jail Goal (LTG) Improve PF strength to 3/5 in supine. 07/11/20: L lateral wall is 1/ 5, R lateral wall is 1/5, Anterior is 1/5, Posterior is 3/5. (05/13/20 EVAL: L lateral wall is 2/5, R lateral wall is 0/5, Anterior is 0/5, Posterior is 1/5 LTG Duration 08/30/20 (07/18/20: Improving) Three Impairment Poor core stability due to severe Diastasis Rectus. Short Term Goal (STG) Pt will be educated in proper transfers and use of K-tape to assist with DR closure through self management. STG Duration 05/27/20 (07/04/20: MET GOAL) Fuels Sales Representative Goal (LTG) Pt will demonstrate DR closure . (08/22/20: DR: Above umbilicus: 5 & 4 above is ( same) closed; 3 above is ( same) 1.5 finger widths, 2 above is 1.5 finger widths, 1 above is 1.75 finger widths. Below umbilicus: 4 & 3 is ( same) closed; 2 is 0.5 shallow finger widths; 1 is ( same) 2.75 finger widths). (Initial DR measurements: Above umbilicus: 5 above is closed at Xyphoid Process; 4 above is 1.5 finger widths; 3 above is 2.5 finger widths, 2 above is 3 finger widths, 1 above is 3.5 finger widths. Below umbilicus: 4 is closed; 3 0.5 finger widths; 2 is 2 .5 finger widths; 1 is 3.5 finger widths) LTG Duration 08/30/20 (07/18/20: MET GOAL for reduced diastasis & able to perform a TA) One Impairment Lacks self care HEP Jail Goal (LTG) Pt will be independent with a self care HEP to promote hip and core strength and PF mobility. LTG Duration 08/30/20 (08/22/20: Progressing) Progress Towards Goals Progress Comments Improving closure of DR. Assessment Summary Assessment Pt PF contraction strength is improving, but she 1mV more tone during the rest phase. Her DR overall has lessened in separation. She demonstrates decreased separation around umbilicus, but less to no change 1-3 inches from umbilicus. Physical Therapy Plan Frequency and Duration Frequency of Treatment 1x/Week Plan of Care Start Date 05/13/20 Plan of Care End Date 08/30/20 Next Visit Focus/Plan Next Note Type Treatment Note Next Visit Plan Re check pt self STM at healed scar at PF 6 O'Clock and monitor EMG biofeedback awareness training on proper PF contraction (E-Stim) and for strengthening long holds and quick flicks with emphasis also on relaxation phase. Review HEP of: progressive core strengthening and progress core stab with leg slide. Progress TA strengthening of roll in/outs & initiate core stab strengthening, HEP for improving R hip AD strength & ?ROM.
--- NOTE | 2020-08-30 18:28 | PT.OTN ---
Current Diagnoses Other specified disorders of muscle (08/30/20) Stress incontinence (female) (male) (08/30/20) Abnormal posture (08/30/20) Physical Therapy Treatment Note PT-OP-A Visit Information Start: 05/09/20 21:10 Freq: Status: Active Protocol: Document 08/30/20 08:18 LRN (Rec: 08/30/20 09:18 LRN [id number]) Out-Patient Physical Therapy Visit Information Visit Information Visit Type Progress Note Visit Start Time 08:18 Visit Stop Time 09:01 Total Visit Minutes 43 Visit Number 14 Evaluation Information Evaluation Date 05/13/20 Precautions Precautions None PT-OP-B Current Condition Start: 05/09/20 21:10 Freq: Status: Active Protocol: Document 05/13/20 08:57 LRN (Rec: 05/13/20 09:52 LRN [id number]) Current Condition History of Current Condition Onset Date 06/2018 History of Current Condition Childbirth of son in 04/2018 with a lot of tearing. Currently notices leakage with strong urge while trying to get into her house and after running. Sometimes she leaks during running, but mainly immediately afterwards. She is running 2x/week for 2-3 miles (1/2 hour). Was occasionally running before (2-3x/month, 1-2 miles). Denies constipation and denies leakage with cough or sneeze or activity when no urge is present. Leakage only with strong urge, Prior Treatments and Tests None Developmental History Developmental History See above Treatment Goals Patient/Caregiver Goals Goal is to have more control of her urine and to not wet underwear when trying to control urine. Prior Functional Status Baseline Function- ADL's Independent Baseline Function- Mobility Independent Baseline Function- Recreation/Hobbies Ran 2-3x/month, 1-2 mile runs. Current Functional Impairments (Reported) Functional Limitations- ADL's Unable to control urine with a strong urge. 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 Functional Limitations- Recreation/ Trickle of urinary leakage Hobbies during running and not able to maintain continence after running or if drinking water after running. 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 Stopped 2 weeks ago, milk production still present. PT-OP-C Subjective Start: 05/09/20 21:10 Freq: Status: Active Protocol: Document 08/30/20 08:18 LRN (Rec: 08/30/20 09:18 LRN [id number]) OP-PT Subjective Patient Comments Patient Comments Tried to practice relaxation. No leakage. PT-OP-G Mobility & Gait Start: 05/09/20 21:10 Freq: Status: Active Protocol: Document 05/13/20 08:57 LRN (Rec: 05/13/20 18:37 LRN [id number]) OP Mobility Evaluation Transfers Bed to Chair Transfers Transfers to supine by lying straight back and to sitting by a sit up motion. PT-OP-I Pelvic Floor Start: 05/09/20 21:10 Freq: Status: Active Protocol: Document 08/30/20 08:18 LRN (Rec: 08/30/20 09:18 LRN [id number]) Pelvic Floor Assessment SEMG (uV) Baseline 2.9 Quick Contraction 16 10 Second Contraction 13.7 Recruitment Pattern Good Relaxation Fair Holding Fair Stability of Hold Good SEMG Stability of Rest Good Comments Pelvic Floor Comments 08/30/20: DR: Above umbilicus: 3 above is (same) 1.0 finger widths, 2 above is 1.5 finger widths, 1 above is 1.75 finger widths . Below umbilicus: 2 is 1.5 shallow finger widths; 1 is (same) 1.5 finger widths EMG Biofeedback Quick Flicks (mV's): 10 reps: Avg Rest is 6.7. 20 reps: Avg Work is 16.1, Avg Rest is 6.6. Long Holds (mV's): 10 reps: Avg Rest is 5.0. 20 reps: Avg Work is 12.9, Avg Rest is 5.0. PT-OP-J Posture/Palpation/Skin Start: 05/09/20 21:10 Freq: Status: Active Protocol: Document 05/13/20 08:57 LRN (Rec: 05/13/20 18:37 LRN [id number]) Posture Evaluation Position Standing Evaluation View All positions Head/C-Spine Posture Side Bent Left L-Spine Posture Rotation Right,Increased Lordosis Shoulder Posture (L) Elevated Pelvis Posture Anteriorly Tilted Knee Posture (L) Genu Valgus,(R) Genu Valgus Foot Arch (L) No Arch,(R) No Arch PT-OP-K Range of Motion Start: 05/09/20 21:10 Freq: Status: Active Protocol: Document 06/17/20 10:36 LRN (Rec: 06/17/20 18:21 LRN [id number]) Hip Goniometric Range of Motion Hip Right Passive Testing Position Supine Internal Rotation 25 External Rotation 75 Left Passive Testing Position Supine Internal Rotation 40 External Rotation 80 PT-OP-M Strength Start: 05/09/20 21:10 Freq: Status: Active Protocol: Document 07/04/20 15:10 LRN (Rec: 07/04/20 16:36 LRN [id number]) Hip Strength Hip Manual Muscle Testing Right Flexion (L2) 5 Normal Extension (S1) 5 Normal Abduction 5 Normal Adduction 4+ Good+ External Rotation 4+ Good+ Internal Rotation 3+ Fair+ Left Flexion (L2) 5 Normal Extension (S1) 5 Normal Abduction 5 Normal Adduction 4+ Good+ External Rotation 4+ Good+ Internal Rotation 3+ Fair+ PT-OP-Q Treatments Start: 05/09/20 21:10 Freq: Status: Active Protocol: Document 08/30/20 08:18 LRN (Rec: 08/30/20 09:18 LRN [id number]) Therapeutic Exercises Supine Exercises PF contractions Supine Exercise Name Anterior PF contraction 30% w/ TA Equipment Used Mirror for visual feedback Reps/Minutes 10' Comments Pt able to get lift of above clit area very slightly Manual Therapy Treatment Manual Techniques Checking Diastasis Rectus Type Manual palpation Body Location Abdomen Body Position Supine Reps/Duration 3' Comments DR: Above umbilicus: 3 above is 1.0 finger widths, 2 above is 1.5 finger widths, 1 above is 1.75 finger widths . Below umbilicus: 2 is 1.5 shallow finger widths; 1 is 1.5 finger widths Neuro Re-Education Treatment Other Activities PF training Details PF contractions and resting tone training Reps/Duration 23' Comments Quick Flicks & Long Holds. Self-Care/Home Management Treatment Education Other Education Educated the pt in PF anatomy and contractability with relation to exercise (walk/run ). Activities Self-Care/Home Management Activities Issued & reviewed HEP: Hip AD & Hamstring stretch PT-OP-T Assessment and Plan Start: 05/09/20 21:10 Freq: Status: Active Protocol: Document 08/30/20 08:18 LRN (Rec: 08/30/20 09:18 LRN [id number]) Physical Therapy Assessment Rehab Potential Rehabilitation Potential Excellent Evaluation Complexity Number of Personal Factors/Comorbidities 1-2 Number of Body Systems Impaired 4 or More Clinical Presentation at Evaluation Evolving Impairments Impairments Activity Tolerance,Posture,ROM ,Strength Goals Six Impairment Poor knowledge of proper transfers and clothing wear to minimize UI. Short Term Goal (STG) Pt will be educated in proper transfers and clothing to minimize onset of Urinary Incontinence. STG Duration 05/21/20 (05/27/20: MET GOAL) Five Impairment Decreased PF endurance of 5 sec's in supine Electric Deicer Inspector Goal (LTG) Improve PF endurance to 10 sec 's in supine. (06/17/20: Quick Flicks: 8 reps before fatigue on R lateral lara.) LTG Duration 08/30/20 (06/17/20: MET GOAL, but Quick Flicks decr'd endurance) Four Impairment Decreased PF strength rated 2/ 5 in supine Electric Deicer Inspector Goal (LTG) Improve PF strength to 3/5 in supine. 07/11/20: L lateral wall is 1/ 5, R lateral wall is 1/5, Anterior is 1/5, Posterior is 3/5. (05/13/20 EVAL: L lateral wall is 2/5, R lateral wall is 0/5, Anterior is 0/5, Posterior is 1/5 LTG Duration 08/30/20 (07/18/20: Improving) Three Impairment Poor core stability due to severe Diastasis Rectus. Short Term Goal (STG) Pt will be educated in proper transfers and use of K-tape to assist with DR closure through self management. STG Duration 05/27/20 (07/04/20: MET GOAL) Intermediate Goal (LTG) Pt will demonstrate DR closure . (08/22/20: DR: Above umbilicus: 5 & 4 above is ( same) closed; 3 above is ( same) 1.5 finger widths, 2 above is 1.5 finger widths, 1 above is 1.75 finger widths. Below umbilicus: 4 & 3 is ( same) closed; 2 is 0.5 shallow finger widths; 1 is ( same) 2.75 finger widths). (Initial DR measurements: Above umbilicus: 5 above is closed at Xyphoid Process; 4 above is 1.5 finger widths; 3 above is 2.5 finger widths, 2 above is 3 finger widths, 1 above is 3.5 finger widths. Below umbilicus: 4 is closed; 3 0.5 finger widths; 2 is 2 .5 finger widths; 1 is 3.5 finger widths) LTG Duration 08/30/20 (07/18/20: MET GOAL for reduced diastasis & able to perform a TA) Two Impairment Poor management of Urge incontinence Short Term Goal (STG) Pt will be educated in Urge incontinence and bladder retraining. STG Duration GOAL MET. Intermediate Goal (LTG) Pt will be able to make it to the bathroom at work and home with minimal to no urinary leakage. (06/14/20: No leakage since last session). LTG Duration 07/26/20 (06/17/20: MET GOAL) One Impairment Lacks self care HEP Electric Deicer Inspector Goal (LTG) Pt will be independent with a self care HEP to promote hip and core strength and PF mobility. LTG Duration 08/30/20 (08/22/20: Progressing) Assessment Summary Assessment Pt has improved a great deal and had no complaints of urinary leakage this past week . She shows instability of the core with a Diastasis Rectus (DR) palpable. Her DR has been slowly closing with expected improvement in core stability and PF strength. There is mild increased closure 2 from umbilicus above and below. Focus is now on improving he PF strength and endurance for continence at work and home with caring of her daughter. She has tenderness in her posterior vaginal wall due to scar tissue that the pt has been doing self scar mob to decrease pain and dysfunction. Per EMG biofeedback the pt shows improved strength and hold of contraction with improved resting tone and avg resting tone with exercise. There is still some soft tissue dysfunction in her abdomen that will hinder her ability maintain core stability and improve her overall PF strength. Tightness is present in the L abdominal region with Urachus tightness. I would recommend the patient continue therapy at least one more month, possibly two to improve her PF and core strength/stability and to decrease dysfunction of the soft tissue. Physical Therapy Plan Frequency and Duration Frequency of Treatment 1x/Week Plan of Care Start Date 08/30/20 Plan of Care End Date 10/29/20 Therapeutic Interventions Therapeutic Interventions Home Exercise Program,Manual Therapy,Neuromuscular Re- education,Patient/Caregiver Education,Self-Care/Home Management,Soft Tissue Mobilization,Taping, Therapeutic Exercises Modalities Electric Stimulation Next Visit Focus/Plan Next Note Type Treatment Note Next Visit Plan Assess hip AD strength and need of perineum stretches. EMG biofeedback awareness training on proper PF contraction (E-Stim) and for relaxation after long holds and quick flick contractions. Review last issued HEP of: hip AD & hamstring stretch. Add to HEP: R hip AD strengthening/ROM & progressive core strengthening and progress. core stab with leg slide. Progress TA strengthening of roll in/outs,
--- NOTE | 2020-09-05 17:37 | PT.OTN ---
Current Diagnoses Other specified disorders of muscle (09/05/20) Stress incontinence (female) (male) (09/05/20) Abnormal posture (09/05/20) Physical Therapy Treatment Note PT-OP-A Visit Information Start: 05/09/20 21:10 Freq: Status: Active Protocol: Document 09/05/20 09:54 LRN (Rec: 09/05/20 10:43 LRN [id number]) Out-Patient Physical Therapy Visit Information Visit Information Visit Type Treatment Note Visit Start Time 09:54 Visit Stop Time 10:43 Total Visit Minutes 49 Visit Number 15 Evaluation Information Evaluation Date 05/13/20 Precautions Precautions None PT-OP-B Current Condition Start: 05/09/20 21:10 Freq: Status: Active Protocol: Document 05/13/20 08:57 LRN (Rec: 05/13/20 09:52 LRN [id number]) Current Condition History of Current Condition Onset Date 06/2018 History of Current Condition Childbirth of son in 04/2018 with a lot of tearing. Currently notices leakage with strong urge while trying to get into her house and after running. Sometimes she leaks during running, but mainly immediately afterwards. She is running 2x/week for 2-3 miles (1/2 hour). Was occasionally running before (2-3x/month, 1-2 miles). Denies constipation and denies leakage with cough or sneeze or activity when no urge is present. Leakage only with strong urge, Prior Treatments and Tests None Developmental History Developmental History See above Treatment Goals Patient/Caregiver Goals Goal is to have more control of her urine and to not wet underwear when trying to control urine. Prior Functional Status Baseline Function- ADL's Independent Baseline Function- Mobility Independent Baseline Function- Recreation/Hobbies Ran 2-3x/month, 1-2 mile runs. Current Functional Impairments (Reported) Functional Limitations- ADL's Unable to control urine with a strong urge. 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 Functional Limitations- Recreation/ Trickle of urinary leakage Hobbies during running and not able to maintain continence after running or if drinking water after running. 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 Stopped 2 weeks ago, milk production still present. PT-OP-C Subjective Start: 05/09/20 21:10 Freq: Status: Active Protocol: Document 09/05/20 09:54 LRN (Rec: 09/05/20 10:43 LRN [id number]) OP-PT Subjective Patient Comments Patient Comments Wearing abdominal support 1 hr at a time PT-OP-G Mobility & Gait Start: 05/09/20 21:10 Freq: Status: Active Protocol: Document 05/13/20 08:57 LRN (Rec: 05/13/20 18:37 LRN [id number]) OP Mobility Evaluation Transfers Bed to Chair Transfers Transfers to supine by lying straight back and to sitting by a sit up motion. PT-OP-I Pelvic Floor Start: 05/09/20 21:10 Freq: Status: Active Protocol: Document 09/05/20 09:54 LRN (Rec: 09/05/20 10:43 LRN [id number]) Pelvic Floor Assessment SEMG (uV) Baseline 2.2 10 Second Contraction 10.9 Comments Pelvic Floor Comments 09/05/20: DR: Above umbilicus: 3 above is (same) 1.0 finger widths, 3 above is 1.5 finger widths 2 above is 2.5 finger widths, 1 above is 2.5 finger widths. Below umbilicus: 1 is (same) 1.5 finger widths 2 is 1.5 shallow finger widths EMG Biofeedback Long Holds (mV's): 10 reps: Avg Rest is 4.2. 20 reps: Avg Work is 10.9, Avg Rest is 4.2. PT-OP-J Posture/Palpation/Skin Start: 05/09/20 21:10 Freq: Status: Active Protocol: Document 05/13/20 08:57 LRN (Rec: 05/13/20 18:37 LRN [id number]) Posture Evaluation Position Standing Evaluation View All positions Head/C-Spine Posture Side Bent Left L-Spine Posture Rotation Right,Increased Lordosis Shoulder Posture (L) Elevated Pelvis Posture Anteriorly Tilted Knee Posture (L) Genu Valgus,(R) Genu Valgus Foot Arch (L) No Arch,(R) No Arch PT-OP-K Range of Motion Start: 06/11/20 21:10 Freq: Status: Active Protocol: Document 06/17/20 10:36 LRN (Rec: 06/17/20 18:21 LRN [id number]) Hip Goniometric Range of Motion Hip Right Passive Testing Position Supine Internal Rotation 25 External Rotation 75 Left Passive Testing Position Supine Internal Rotation 40 External Rotation 80 PT-OP-M Strength Start: 05/09/20 21:10 Freq: Status: Active Protocol: Document 07/04/20 15:10 LRN (Rec: 07/04/20 16:36 LRN [id number]) Hip Strength Hip Manual Muscle Testing Right Flexion (L2) 5 Normal Extension (S1) 5 Normal Abduction 5 Normal Adduction 4+ Good+ External Rotation 4+ Good+ Internal Rotation 3+ Fair+ Left Flexion (L2) 5 Normal Extension (S1) 5 Normal Abduction 5 Normal Adduction 4+ Good+ External Rotation 4+ Good+ Internal Rotation 3+ Fair+ PT-OP-Q Treatments Start: 05/09/20 21:10 Freq: Status: Active Protocol: Document 09/05/20 09:54 LRN (Rec: 09/05/20 10:43 LRN [id number]) Therapeutic Exercises Supine Exercises Trunk rot stretch Supine Exercise Name Trunk rot stretch: LTR Side bilateral Reps/Minutes 8' Comments Knee roll to left tighter than knees to right. Rot Hands/knees ritchie push Supine Exercise Name Rot Hands/knees ritchie push Side bilateral Reps/Minutes 6' Comments Phys cuing needed for TA hold Hands/knees ritchie push Supine Exercise Name Hands/knees ritchie push Reps/Minutes 6' Comments Phys cuing needed for TA hold TA Supine Exercise Name TA with head lift Reps/Minutes 4' Sidelying Exercises Hip AB/AD Sidelying Exercise Name Hip AD Side bilateral Reps/Minutes 10x 2 R, 10x L Comments Phys and v. cuing during ex, with extra cuing doing R AD Neuro Re-Education Treatment Other Activities Biofeedback for PF awareness Details EMG Biofeedback for PF strengthening/relaxation. Reps/Duration 10' Comments Quick Flicks, pt needed cuing for relaxation after contractions. Long Holds, pt needed cuing to relax and to hold contraction & contraction stability. Extra time for donning of electrode. Self-Care/Home Management Treatment Education Patient Education Home Exercise Program Activities Self-Care/Home Management Activities Issued & reviewed Hands/Knees Push and I/S pt in rotational hands/knees push. PT-OP-T Assessment and Plan Start: 05/09/20 21:10 Freq: Status: Active Protocol: Document 09/05/20 09:54 LRN (Rec: 09/05/20 10:43 LRN [id number]) Physical Therapy Assessment Goals Six Impairment Poor knowledge of proper transfers and clothing wear to minimize UI. Short Term Goal (STG) Pt will be educated in proper transfers and clothing to minimize onset of Urinary Incontinence. 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 (06/17/20: Quick Flicks: 8 reps before fatigue on R lateral lara.) LTG Duration 08/30/20 (06/17/20: MET GOAL, but Quick Flicks decr'd endurance) Four Impairment Decreased PF strength rated 2/ 5 in supine Senior Living Goal (LTG) Improve PF strength to 3/5 in supine. 07/11/20: L lateral wall is 1/ 5, R lateral wall is 1/5, Anterior is 1/5, Posterior is 3/5. (05/13/20 EVAL: L lateral wall is 2/5, R lateral wall is 0/5, Anterior is 0/5, Posterior is 1/5 LTG Duration 08/30/20 (07/18/20: Improving) Three Impairment Poor core stability due to severe Diastasis Rectus. Short Term Goal (STG) Pt will be educated in proper transfers and use of K-tape to assist with DR closure through self management. STG Duration 05/27/20 (07/04/20: MET GOAL) Senior Living Goal (LTG) Pt will demonstrate DR closure . (08/22/20: DR: Above umbilicus: 5 & 4 above is ( same) closed; 3 above is ( same) 1.5 finger widths, 2 above is 1.5 finger widths, 1 above is 1.75 finger widths. Below umbilicus: 4 & 3 is ( same) closed; 2 is 0.5 shallow finger widths; 1 is ( same) 2.75 finger widths). (Initial DR measurements: Above umbilicus: 5 above is closed at Xyphoid Process; 4 above is 1.5 finger widths; 3 above is 2.5 finger widths, 2 above is 3 finger widths, 1 above is 3.5 finger widths. Below umbilicus: 4 is closed; 3 0.5 finger widths; 2 is 2 .5 finger widths; 1 is 3.5 finger widths) LTG Duration 08/30/20 (07/18/20: MET GOAL for reduced diastasis & able to perform a TA) Two Impairment Poor management of Urge incontinence Short Term Goal (STG) Pt will be educated in Urge incontinence and bladder retraining. STG Duration GOAL MET. Senior Living Goal (LTG) Pt will be able to make it to the bathroom at work and home with minimal to no urinary leakage. (06/14/20: No leakage since last session). 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 LTG Duration 08/30/20 (09/05/20: Progressing) Assessment Summary Assessment During long hold training (10 secs) Improved stablity of hold and pt relaxation strength was less (5.0 mV's to 4.2 mV's), showing improvement in resting tone after contraction. Pt did have decreased contraction (13 .7 to 10.9 mV's) but did isolated PF contractions. DR is variable, today she is wider above umbilicus. Pt may be using abdominal binder for core control; therefore pt will try not using as much and focus on TA control with daily activities. Physical Therapy Plan Frequency and Duration Frequency of Treatment 1x/Week Plan of Care Start Date 08/30/20 Plan of Care End Date 10/29/20 Next Visit Focus/Plan Next Note Type Treatment Note Next Visit Plan Assess hip AD strength and need of perineum stretches. Strengthen R lateral wall quick Flics to 10 on right side, and both lateral lara to 3/5. EMG biofeedback awareness training on proper PF contraction (E-Stim) and for relaxation after long holds and quick flick contractions. Review last issued HEP of: hip AD & hamstring stretch. Add to HEP: R hip AD strengthening/ROM & progressive core strengthening and progress. core stab with leg slide. Progress TA strengthening of roll in/outs,
--- NOTE | 2020-09-12 13:31 | PT.OTN ---
Current Diagnoses Other specified disorders of muscle (09/12/20) Stress incontinence (female) (male) (09/12/20) Abnormal posture (09/12/20) Physical Therapy Treatment Note PT-OP-A Visit Information Start: 05/09/20 21:10 Freq: Status: Active Protocol: Document 09/12/20 09:57 LRN (Rec: 09/12/20 10:47 LRN [id number]) Out-Patient Physical Therapy Visit Information Visit Information Visit Type Treatment Note Visit Note 2 visits after PN Visit Start Time 09:56 Visit Stop Time 10:35 Total Visit Minutes 39 Visit Number 16 Evaluation Information Evaluation Date 05/13/20 Precautions Precautions None PT-OP-B Current Condition Start: 05/09/20 21:10 Freq: Status: Active Protocol: Document 05/13/20 08:57 LRN (Rec: 05/13/20 09:52 LRN [id number]) Current Condition History of Current Condition Onset Date 06/2018 History of Current Condition Childbirth of son in 04/2018 with a lot of tearing. Currently notices leakage with strong urge while trying to get into her house and after running. Sometimes she leaks during running, but mainly immediately afterwards. She is running 2x/week for 2-3 miles (1/2 hour). Was occasionally running before (2-3x/month, 1-2 miles). Denies constipation and denies leakage with cough or sneeze or activity when no urge is present. Leakage only with strong urge, Prior Treatments and Tests None Developmental History Developmental History See above Treatment Goals Patient/Caregiver Goals Goal is to have more control of her urine and to not wet underwear when trying to control urine. Prior Functional Status Baseline Function- ADL's Independent Baseline Function- Mobility Independent Baseline Function- Recreation/Hobbies Ran 2-3x/month, 1-2 mile runs. Current Functional Impairments (Reported) Functional Limitations- ADL's Unable to control urine with a strong urge. 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 Functional Limitations- Recreation/ Trickle of urinary leakage Hobbies during running and not able to maintain continence after running or if drinking water after running. 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 Stopped 2 weeks ago, milk production still present. PT-OP-C Subjective Start: 05/09/20 21:10 Freq: Status: Active Protocol: Document 09/12/20 09:57 LRN (Rec: 09/12/20 10:47 LRN [id number]) OP-PT Subjective Patient Comments Patient Comments No leaks. Doing ex's with knee push & all fours. PT-OP-G Mobility & Gait Start: 05/09/20 21:10 Freq: Status: Active Protocol: Document 05/13/20 08:57 LRN (Rec: 05/13/20 18:37 LRN [id number]) OP Mobility Evaluation Transfers Bed to Chair Transfers Transfers to supine by lying straight back and to sitting by a sit up motion. PT-OP-I Pelvic Floor Start: 05/09/20 21:10 Freq: Status: Active Protocol: Document 09/12/20 09:57 LRN (Rec: 09/12/20 10:47 LRN [id number]) Pelvic Floor Assessment Comments Pelvic Floor Comments 09/12/20: DR: Above umbilicus: 3 above is (same) 1.0 finger widths, 3 above is 1. finger widths 2 above is 1.5 finger widths, 1 above is 2.0 finger widths. Below umbilicus: 1 is (same) 1.5 shallow finger widths 2 is 1. shallow finger widths PT-OP-J Posture/Palpation/Skin Start: 05/09/20 21:10 Freq: Status: Active Protocol: Document 05/13/20 08:57 LRN (Rec: 05/13/20 18:37 LRN [id number]) Posture Evaluation Position Standing Evaluation View All positions Head/C-Spine Posture Side Bent Left L-Spine Posture Rotation Right,Increased Lordosis Shoulder Posture (L) Elevated Pelvis Posture Anteriorly Tilted Knee Posture (L) Genu Valgus,(R) Genu Valgus Foot Arch (L) No Arch,(R) No Arch PT-OP-K Range of Motion Start: 05/09/20 21:10 Freq: Status: Active Protocol: Document 06/17/20 10:36 LRN (Rec: 06/17/20 18:21 LRN [id number]) Hip Goniometric Range of Motion Hip Right Passive Testing Position Supine Internal Rotation 25 External Rotation 75 Left Passive Testing Position Supine Internal Rotation 40 External Rotation 80 PT-OP-M Strength Start: 05/09/20 21:10 Freq: Status: Active Protocol: Document 07/04/20 15:10 LRN (Rec: 07/04/20 16:36 LRN [id number]) Hip Strength Hip Manual Muscle Testing Right Flexion (L2) 5 Normal Extension (S1) 5 Normal Abduction 5 Normal Adduction 4+ Good+ External Rotation 4+ Good+ Internal Rotation 3+ Fair+ Left Flexion (L2) 5 Normal Extension (S1) 5 Normal Abduction 5 Normal Adduction 4+ Good+ External Rotation 4+ Good+ Internal Rotation 3+ Fair+ PT-OP-Q Treatments Start: 05/09/20 21:10 Freq: Status: Active Protocol: Document 09/12/20 09:57 LRN (Rec: 09/12/20 10:47 LRN [id number]) Therapeutic Exercises Supine Exercises TA/Single BKFO Supine Exercise Name TA/Single BKFO Side bilateral Reps/Minutes 3' Comments More time on L than R. Trunk rot stretch Supine Exercise Name Trunk rot stretch: LTR Side bilateral Reps/Minutes 8' Comments Knee roll to left tighter than knees to right. Rot Hands/knees ritchie push Supine Exercise Name Rot Hands/knees ritchie push Side bilateral Reps/Minutes 6' Comments Phys cuing needed for TA hold Hands/knees ritchie push Supine Exercise Name Hands/knees ritchie push Reps/Minutes 6' Comments Phys cuing needed for TA hold Sidelying Exercises Hip AB/AD Sidelying Exercise Name Hip AD w/PF 10 sec constraction every other time Side bilateral Reps/Minutes 10x 2 R, 10x L Comments Extra time for Phys and v. cuing during ex, with extra cuing doing R AD Sitting Exercises Hip AD stretch Sitting Exercise Name Hip AD stretch Side bilateral Reps/Minutes 4' Self-Care/Home Management Treatment Education Patient Education Home Exercise Program Activities Self-Care/Home Management Activities Issued & reviewed HEP: Hip AD stretch sitting and on floor, & Hamstring stretch standing and on floor. PT-OP-T Assessment and Plan Start: 05/09/20 21:10 Freq: Status: Active Protocol: Document 09/12/20 09:57 LRN (Rec: 09/12/20 10:47 LRN [id number]) Physical Therapy Assessment Goals Five Impairment Decreased PF endurance of 5 sec's in supine Manager Mall Goal (LTG) Improve PF endurance to 10 sec 's in supine. (06/17/20: Quick Flicks: 8 reps before fatigue on R lateral lara.) LTG Duration 08/30/20 (06/17/20: MET GOAL, but Quick Flicks decr'd endurance) Four Impairment Decreased PF strength rated 2/ 5 in supine Custodial Goal (LTG) Improve PF strength to 3/5 in supine. 07/11/20: L lateral wall is 1/ 5, R lateral wall is 1/5, Anterior is 1/5, Posterior is 3/5. (05/13/20 EVAL: L lateral wall is 2/5, R lateral wall is 0/5, Anterior is 0/5, Posterior is 1/5 LTG Duration 08/30/20 (07/18/20: Improving) Three Impairment Poor core stability due to severe Diastasis Rectus. Short Term Goal (STG) Pt will be educated in proper transfers and use of K-tape to assist with DR closure through self management. STG Duration 05/27/20 (07/04/20: MET GOAL) Manager Mall Goal (LTG) Pt will demonstrate DR closure . (08/22/20: DR: Above umbilicus: 5 & 4 above is ( same) closed; 3 above is ( same) 1.5 finger widths, 2 above is 1.5 finger widths, 1 above is 1.75 finger widths. Below umbilicus: 4 & 3 is ( same) closed; 2 is 0.5 shallow finger widths; 1 is ( same) 2.75 finger widths). (Initial DR measurements: Above umbilicus: 5 above is closed at Xyphoid Process; 4 above is 1.5 finger widths; 3 above is 2.5 finger widths, 2 above is 3 finger widths, 1 above is 3.5 finger widths. Below umbilicus: 4 is closed; 3 0.5 finger widths; 2 is 2 .5 finger widths; 1 is 3.5 finger widths) LTG Duration 08/30/20 (07/18/20: MET GOAL for reduced diastasis & able to perform a TA) One Impairment Lacks self care HEP Manager Mall Goal (LTG) Pt will be independent with a self care HEP to promote hip and core strength and PF mobility. LTG Duration 08/30/20 (09/12/20: Progressing) Assessment Summary Assessment Improved DR, with lessening of DR width. Pt shows good understanding of new ex's. Physical Therapy Plan Frequency and Duration Frequency of Treatment 1x/Week Plan of Care Start Date 08/30/20 Plan of Care End Date 10/29/20 Next Visit Focus/Plan Next Note Type Treatment Note Next Visit Plan Assess hip AD strength and need of perineum stretches. (Check DR, EMG biofeedback for relaxation ability of PF after contraction, progress core stab.) Strengthen R lateral wall quick Flics to 10 on right side, and both lateral lara to 3/5. EMG biofeedback awareness training on proper PF contraction (E-Stim) and for relaxation after long holds and quick flick contractions. Review last issued HEP of: hip AD & hamstring stretch. Add to HEP: R hip AD strengthening/ROM & progressive core strengthening and progress. core stab with leg slide. Progress TA strengthening of roll in/outs,
--- NOTE | 2020-10-03 16:19 | PT.OTN ---
Current Diagnoses Other specified disorders of muscle (10/03/20) Stress incontinence (female) (male) (10/03/20) Abnormal posture (10/03/20) Physical Therapy Treatment Note PT-OP-A Visit Information Start: 05/09/20 21:10 Freq: Status: Active Protocol: Document 10/03/20 12:49 LRN (Rec: 10/03/20 13:43 LRN [id number]) Out-Patient Physical Therapy Visit Information Visit Information Visit Type Treatment Note Visit Note 3 visits after PN Visit Start Time 12:49 Visit Stop Time 13:41 Total Visit Minutes 51 Visit Number 17 Precautions Precautions None PT-OP-B Current Condition Start: 05/09/20 21:10 Freq: Status: Active Protocol: Document 05/13/20 08:57 LRN (Rec: 05/13/20 09:52 LRN [id number]) Current Condition History of Current Condition Onset Date 06/2018 History of Current Condition Childbirth of son in 04/2018 with a lot of tearing. Currently notices leakage with strong urge while trying to get into her house and after running. Sometimes she leaks during running, but mainly immediately afterwards. She is running 2x/week for 2-3 miles (1/2 hour). Was occasionally running before (2-3x/month, 1-2 miles). Denies constipation and denies leakage with cough or sneeze or activity when no urge is present. Leakage only with strong urge, Prior Treatments and Tests None Developmental History Developmental History See above Treatment Goals Patient/Caregiver Goals Goal is to have more control of her urine and to not wet underwear when trying to control urine. Prior Functional Status Baseline Function- ADL's Independent Baseline Function- Mobility Independent Baseline Function- Recreation/Hobbies Ran 2-3x/month, 1-2 mile runs. Current Functional Impairments (Reported) Functional Limitations- ADL's Unable to control urine with a strong urge. 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 Functional Limitations- Recreation/ Trickle of urinary leakage Hobbies during running and not able to maintain continence after running or if drinking water after running. 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 Stopped 2 weeks ago, milk production still present. PT-OP-C Subjective Start: 05/09/20 21:10 Freq: Status: Active Protocol: Document 10/03/20 12:49 LRN (Rec: 10/03/20 13:43 LRN [id number]) OP-PT Subjective Patient Comments Patient Comments Had one leak walking to the bathroom due to bladder full. She is most concerned of diastasis and core strengthening. PT-OP-G Mobility & Gait Start: 05/09/20 21:10 Freq: Status: Active Protocol: Document 05/13/20 08:57 LRN (Rec: 05/13/20 18:37 LRN [id number]) OP Mobility Evaluation Transfers Bed to Chair Transfers Transfers to supine by lying straight back and to sitting by a sit up motion. PT-OP-I Pelvic Floor Start: 05/09/20 21:10 Freq: Status: Active Protocol: Document 10/03/20 12:49 LRN (Rec: 10/03/20 13:43 LRN [id number]) Pelvic Floor Assessment Comments Pelvic Floor Comments 10/03/20: DR: Above umbilicus: 3 above is 1.5 finger widths (worse) 2 above is 1.5 finger widths (same), 1 above is 2.5 finger widths (worse). Below umbilicus: 1 is (same) shallow 1.5 finger width, 2 is very shallow 1.5 finger widths PT-OP-J Posture/Palpation/Skin Start: 05/09/20 21:10 Freq: Status: Active Protocol: Document 05/13/20 08:57 LRN (Rec: 05/13/20 18:37 LRN [id number]) Posture Evaluation Position Standing Evaluation View All positions Head/C-Spine Posture Side Bent Left L-Spine Posture Rotation Right,Increased Lordosis Shoulder Posture (L) Elevated Pelvis Posture Anteriorly Tilted Knee Posture (L) Genu Valgus,(R) Genu Valgus Foot Arch (L) No Arch,(R) No Arch PT-OP-K Range of Motion Start: 05/09/20 21:10 Freq: Status: Active Protocol: Document 06/17/20 10:36 LRN (Rec: 06/17/20 18:21 LRN [id number]) Hip Goniometric Range of Motion Hip Right Passive Testing Position Supine Internal Rotation 25 External Rotation 75 Left Passive Testing Position Supine Internal Rotation 40 External Rotation 80 PT-OP-M Strength Start: 05/09/20 21:10 Freq: Status: Active Protocol: Document 10/03/20 12:49 LRN (Rec: 10/03/20 13:43 LRN [id number]) Hip Strength Hip Manual Muscle Testing Right Flexion (L2) 4+ Good+ Abduction 5 Normal Adduction 4+ Good+ Comments hip Flex weak due to weakness of core of left rotators. Left Flexion (L2) 5 Normal Abduction 5 Normal Adduction 4+ Good+ PT-OP-Q Treatments Start: 05/09/20 21:10 Freq: Status: Active Protocol: Document 10/03/20 12:49 LRN (Rec: 10/03/20 13:43 LRN [id number]) Therapeutic Exercises Supine Exercises Trunk rot feet on T-Ball Supine Exercise Name Trunk rot side to side & single sided strengthening Side bilateral Resistance Lev 2 Reps/Minutes 5' Trunk rot stretch Supine Exercise Name Trunk rot stretch: LTR Side bilateral Reps/Minutes 8' Comments Knee roll to left tighter than knees to right. Sidelying Exercises Upper trunk rotator stretch Sidelying Exercise Name Trunk rot stretch (reaching back with R) Side bilateral R hip AD w/Quick Flicks Sidelying Exercise Name Hip AD w/Quick Flicks & TA Side right Reps/Minutes 10x 3 Hip AD w/PF & TA on Sidelying Exercise Name Hip AD w/Long holds & TA Side right Reps/Minutes 10 hold x 2 Sitting Exercises Hip AD stretch Sitting Exercise Name Hip AD stretch Side bilateral Reps/Minutes 4' Manual Therapy Treatment Soft Tissue Mobilization Trunk rotators Body Location L>R trunk rotators Mobilization Type Myofascial Release,Other Body Position Supine Comments 22' MFR Stacking technique, and contract/relax stretching Self-Care/Home Management Treatment Education Patient Education Home Exercise Program Activities Self-Care/Home Management Activities .......................... PT-OP-T Assessment and Plan Start: 05/09/20 21:10 Freq: Status: Active Protocol: Document 10/03/20 12:49 LRN (Rec: 10/03/20 13:43 LRN [id number]) Physical Therapy Assessment Goals Five Impairment Decreased PF endurance of 5 sec's in supine Fpc Goal (LTG) Improve PF endurance to 10 sec 's in supine. (06/17/20: Quick Flicks: 8 reps before fatigue on R lateral lara.) LTG Duration 08/30/20 (06/17/20: MET GOAL, but Quick Flicks decr'd endurance) Four Impairment Decreased PF strength rated 2/ 5 in supine Fpc Goal (LTG) Improve PF strength to 3/5 in supine. 07/11/20: L lateral wall is 1/ 5, R lateral wall is 1/5, Anterior is 1/5, Posterior is 3/5. (05/13/20 EVAL: L lateral wall is 2/5, R lateral wall is 0/5, Anterior is 0/5, Posterior is 1/5 LTG Duration 08/30/20 (07/18/20: Improving) Three Impairment Poor core stability due to severe Diastasis Rectus. Short Term Goal (STG) Pt will be educated in proper transfers and use of K-tape to assist with DR closure through self management. STG Duration 05/27/20 (07/04/20: MET GOAL) Fpc Goal (LTG) Pt will demonstrate DR closure . (10/03/20: Above umbilicus: 3 above is 1.5 finger widths ( worse), 2 above is 1.5 finger widths (same), 1 above is 2.5 finger widths (worse). Below umbilicus: 1 is (same) shallow 1.5 finger width, 2 is very shallow 1.5 finger widths). (Initial DR measurements: Above umbilicus: 5 above is closed at Xyphoid Process; 4 above is 1.5 finger widths; 3 above is 2.5 finger widths, 2 above is 3 finger widths, 1 above is 3.5 finger widths. Below umbilicus: 4 is closed; 3 0.5 finger widths; 2 is 2 .5 finger widths; 1 is 3.5 finger widths) LTG Duration 08/30/20 (07/18/20: MET GOAL for reduced diastasis & able to perform a TA) One Impairment Lacks self care HEP Thermometer Maker Goal (LTG) Pt will be independent with a self care HEP to promote hip and core strength and PF mobility. LTG Duration 08/30/20 (09/12/20: Progressing) Assessment Summary Assessment No active trigger points in hip AD's. Pt's hip AD strength is same bilaterally ( AD 4+/5, AB 5/5). Pt appears to have a good understanding of previously issued HEP of hip AD and hamstring stretch. Pt is having no pain in perineum; therefore stretches do not appear to be needed. Pt DR is worse above umbilicus but appears to not be as deep below umbilicus. She does not yet have an automatic TA contraction with activities and has trouble with lower TA holding. Trunk rotators R are tight and weak with ower trunk rot L or upper trunk rot R (with pelvis stable). Physical Therapy Plan Frequency and Duration Frequency of Treatment 1x/Week Plan of Care Start Date 08/30/20 Plan of Care End Date 10/29/20 Next Visit Focus/Plan Next Note Type Treatment Note Next Visit Plan Discuss POC to cont or pt to cont independently with return at a later date. Review hip AD strengthening and discuss with pt to improve along with PF strengthening of lateral lara (R>L). Monitor DR as core strengthening is progressed, EMG biofeedback for relaxation ability of PF after contraction. Strengthen R lateral wall quick Flics to 10 on right side, and both lateral lara to 3/5. EMG biofeedback awareness training on proper PF contraction (E-Stim) and for relaxation after long holds and quick flick contractions. Add to HEP: R hip AD strengthening & progressive core strengthening to decrease DR. Progress core stab with leg slide & progress TA strengthening of roll in/outs by adding resistance band and ball.
--- NOTE | 2020-10-28 17:08 | PT.OTN ---
Current Diagnoses Other specified disorders of muscle (10/28/20) Stress incontinence (female) (male) (10/28/20) Abnormal posture (10/28/20) Physical Therapy Treatment Note PT-OP-A Visit Information Start: 05/09/20 21:10 Freq: Status: Active Protocol: Document 10/28/20 09:57 LRN (Rec: 10/28/20 10:35 LRN [id number]) Out-Patient Physical Therapy Visit Information Visit Information Visit Type Progress Note Visit Note Pt late for appt. Visit Start Time 09:57 Visit Stop Time 10:32 Total Visit Minutes 35 Visit Number 18 Evaluation Information Evaluation Date 05/13/20 Precautions Precautions None PT-OP-B Current Condition Start: 05/09/20 21:10 Freq: Status: Active Protocol: Document 05/13/20 08:57 LRN (Rec: 05/13/20 09:52 LRN [id number]) Current Condition History of Current Condition Onset Date 06/2018 History of Current Condition Childbirth of son in 04/2018 with a lot of tearing. Currently notices leakage with strong urge while trying to get into her house and after running. Sometimes she leaks during running, but mainly immediately afterwards. She is running 2x/week for 2-3 miles (1/2 hour). Was occasionally running before (2-3x/month, 1-2 miles). Denies constipation and denies leakage with cough or sneeze or activity when no urge is present. Leakage only with strong urge, Prior Treatments and Tests None Developmental History Developmental History See above Treatment Goals Patient/Caregiver Goals Goal is to have more control of her urine and to not wet underwear when trying to control urine. Prior Functional Status Baseline Function- ADL's Independent Baseline Function- Mobility Independent Baseline Function- Recreation/Hobbies Ran 2-3x/month, 1-2 mile runs. Current Functional Impairments (Reported) Functional Limitations- ADL's Unable to control urine with a strong urge. 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 Functional Limitations- Recreation/ Trickle of urinary leakage Hobbies during running and not able to maintain continence after running or if drinking water after running. 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 Stopped 2 weeks ago, milk production still present. PT-OP-C Subjective Start: 05/09/20 21:10 Freq: Status: Active Protocol: Document 10/28/20 09:57 LRN (Rec: 10/28/20 10:35 LRN [id number]) OP-PT Subjective Patient Comments Patient Comments No more leakage. States she was told she did not have a [facility] care provider. PT-OP-G Mobility & Gait Start: 05/09/20 21:10 Freq: Status: Active Protocol: Document 05/13/20 08:57 LRN (Rec: 05/13/20 18:37 LRN [id number]) OP Mobility Evaluation Transfers Bed to Chair Transfers Transfers to supine by lying straight back and to sitting by a sit up motion. PT-OP-I Pelvic Floor Start: 05/09/20 21:10 Freq: Status: Active Protocol: Document 10/28/20 09:57 LRN (Rec: 10/28/20 10:35 LRN [id number]) Pelvic Floor Assessment Comments Pelvic Floor Comments ............. PT-OP-J Posture/Palpation/Skin Start: 05/09/20 21:10 Freq: Status: Active Protocol: Document 05/13/20 08:57 LRN (Rec: 05/13/20 18:37 LRN [id number]) Posture Evaluation Position Standing Evaluation View All positions Head/C-Spine Posture Side Bent Left L-Spine Posture Rotation Right,Increased Lordosis Shoulder Posture (L) Elevated Pelvis Posture Anteriorly Tilted Knee Posture (L) Genu Valgus,(R) Genu Valgus Foot Arch (L) No Arch,(R) No Arch PT-OP-K Range of Motion Start: 05/09/20 21:10 Freq: Status: Active Protocol: Document 06/17/20 10:36 LRN (Rec: 06/17/20 18:21 LRN [id number]) Hip Goniometric Range of Motion Hip Right Passive Testing Position Supine Internal Rotation 25 External Rotation 75 Left Passive Testing Position Supine Internal Rotation 40 External Rotation 80 PT-OP-M Strength Start: 05/09/20 21:10 Freq: Status: Active Protocol: Document 10/03/20 12:49 LRN (Rec: 10/03/20 13:43 LRN [id number]) Hip Strength Hip Manual Muscle Testing Right Flexion (L2) 4+ Good+ Abduction 5 Normal Adduction 4+ Good+ Comments hip Flex weak due to weakness of core of left rotators. Left Flexion (L2) 5 Normal Abduction 5 Normal Adduction 4+ Good+ PT-OP-Q Treatments Start: 05/09/20 21:10 Freq: Status: Active Protocol: Document 10/28/20 09:57 LRN (Rec: 10/28/20 10:35 LRN [id number]) Therapeutic Exercises Supine Exercises TA Supine Exercise Name TA head lifts strengthening. Reps/Minutes 12' Manual Therapy Treatment Soft Tissue Mobilization Abdominal Body Location Rectus & Urachus Mobilization Type Myofascial Release Self-Care/Home Management Treatment Education Patient Education Home Exercise Program Activities Self-Care/Home Management Activities Pt taught and I/S in Self MFR of Rectus Adominus. PT-OP-T Assessment and Plan Start: 05/09/20 21:10 Freq: Status: Active Protocol: Document 10/28/20 09:57 LRN (Rec: 10/28/20 10:35 LRN [id number]) Physical Therapy Assessment Rehab Potential Rehabilitation Potential Excellent Evaluation Complexity Number of Personal Factors/Comorbidities 1-2 Number of Body Systems Impaired 3 Clinical Presentation at Evaluation Evolving Impairments Impairments Posture,ROM,Strength Goals Six Impairment Poor knowledge of proper transfers and clothing wear to minimize UI. Short Term Goal (STG) Pt will be educated in proper transfers and clothing to minimize onset of Urinary Incontinence. STG Duration 05/21/20 (05/27/20: MET GOAL) Five Impairment Decreased PF endurance of 5 sec's in supine Halfway Goal (LTG) Improve PF endurance to 10 sec 's in supine. (06/17/20: Quick Flicks: 8 reps before fatigue on R lateral lara.) LTG Duration 05/02/21 (06/17/20: MET GOAL, but Quick Flicks decr'd endurance) Four Impairment Decreased PF strength rated 2/ 5 in supine Halfway Goal (LTG) Improve PF strength to 3/5 in supine. 10/28/20: L lateral wall is 2 /5, R lateral wall is 1/5, Anterior is 1/5, Posterior is 3/5. (05/13/20 EVAL: L lateral wall is 2/5, R lateral wall is 0/5, Anterior is 0/5, Posterior is 1/5 LTG Duration 05/02/21 (10/28/20: Improving ) Three Impairment Poor core stability due to severe Diastasis Rectus. Short Term Goal (STG) Pt will be educated in proper transfers and use of K-tape to assist with DR closure through self management. STG Duration 05/27/20 (07/04/20: MET GOAL) Halfway Goal (LTG) Pt will demonstrate DR closure . 10/28/20: Above umbilicus: 3 above is 1.0-1.5 finger widths (shallow), 2 above is 1.5 finger widths, 1 above is 2.5 finger widths (worse). Below umbilicus: 1 is 1.5 finger width ( shallow), 2 is 1.5 finger widths (very shallow). (Initial DR measurements: Above umbilicus: 5 above is closed at Xyphoid Process; 4 above is 1.5 finger widths; 3 above is 2.5 finger widths, 2 above is 3 finger widths, 1 above is 3.5 finger widths. Below umbilicus: 1 is 3.5 finger widths, 2 is 2.5 finger widths; 3 0.5 finger widths; 4 is closed) LTG Duration 05/02/21 (07/18/20: Progressing w/REDUCED diastasis & able to perform a TA) Two Impairment Poor management of Urge incontinence Short Term Goal (STG) Pt will be educated in Urge incontinence and bladder retraining. STG Duration GOAL MET. Halfway Goal (LTG) Pt will be able to make it to the bathroom at work and home with minimal to no urinary leakage. (06/14/20: No leakage since last session). LTG Duration 07/26/20 (06/17/20: MET GOAL) One Impairment Lacks self care HEP Halfway Goal (LTG) Pt will be independent with a self care HEP to promote hip and core strength and PF mobility. LTG Duration 05/02/21 (09/12/20: Progressing) Progress Towards Goals Progress Towards Goals Progressing Toward Goals Progress Comments Goal 1: Progressing HEP as appropriate. Goal 2: STG & LTG's MET. Goal 3: STG MET, LTG is progressing. Goal 4: Progressing. Goal 5: MET for long holds. Quick Flicks endurance is 8 reps prior to fatigue. Goal 6: MET GOAL Assessment Summary Assessment Pt has reported today no episodes of urinary leakage. Her concern is her core instability associated with her diastasis rectus and her decreased PF strength. Her PF strength has been variable in locations of weakness. Today her lateral lara are weak. She has worked hard at home with notable improvement in her posterior PF strength. As expected, her rehabilitation time is extended due to her continuation of working and having to care for her young son. She would like to continue physical therapy to improve her PF strength and work towards improving her core stability as noted by a reduction of her diastasis rectus. I feel this is appropriate since she has very good potential to further improve. Physical Therapy Plan Frequency and Duration Frequency of Treatment 1x/Week Plan of Care Start Date 10/28/20 Plan of Care End Date 05/02/21 Therapeutic Interventions Therapeutic Interventions Home Exercise Program,Manual Therapy,Neuromuscular Re- education,Patient/Caregiver Education,Self-Care/Home Management,Soft Tissue Mobilization,Taping, Therapeutic Exercises Modalities Electric Stimulation Next Visit Focus/Plan Next Note Type Treatment Note Next Visit Plan Initiate MFR release to Abdominal muscles (and Urachus ) to promote a decrease in DR. Progress trunk rotation strengthening. Review hip AD strengthening and discuss with pt to improve along with PF strengthening of lateral lara (R>L). Monitor DR as core strengthening is progressed. Monitor EMG biofeedback for relaxation ability of PF after contraction. Strengthen R lateral wall quick Flicks to 10 on right side, and both lateral lara to 3/5. EMG biofeedback awareness training on proper PF contraction (E-Stim) and for relaxation after long holds and quick flick contractions. Add to HEP: R hip AD strengthening & progressive core strengthening to decrease DR. Progress core stab with leg slide & progress TA strengthening of roll in/outs by adding resistance band and ball.
--- NOTE | 2020-10-28 17:19 | PT.OPPOC ---
Addendum entered and electronically signed by Lena Myers, PT 11/06/20 13:39: Resend to provider. Original Note: Physical, Occupational & Speech Therapy At [facility] Current Diagnoses Other specified disorders of muscle (10/28/20) Stress incontinence (female) (male) (10/28/20) Abnormal posture (10/28/20) Visit Care Team Role Provider Type Amy Sanchez DO Primary Care Provider Physician Specialty: Family Practice Address: [address] [place] [address], [id number] Email: [email or web address] Abdelrahman Palumbo MD Attending Provider Physician Referring Provider Specialty: DROP WIRE OPERATOR Address: [address] [place] [address], [id number] Email: [email or web address] Plan Of Care PT-OP-T Assessment and Plan Start: 05/09/20 21:10 Freq: Status: Active Protocol: Document 10/28/20 09:57 LRN (Rec: 10/28/20 10:35 LRN [id number]) Physical Therapy Assessment Rehab Potential Rehabilitation Potential Excellent Evaluation Complexity Number of Personal Factors/Comorbidities 1-2 Number of Body Systems Impaired 3 Clinical Presentation at Evaluation Evolving Impairments Impairments Posture,ROM,Strength Goals Six Impairment Poor knowledge of proper transfers and clothing wear to minimize UI. Short Term Goal (STG) Pt will be educated in proper transfers and clothing to minimize onset of Urinary Incontinence. STG Duration 05/21/20 (05/27/20: MET GOAL) Five Impairment Decreased PF endurance of 5 sec's in supine Director Digital Advertising Goal (LTG) Improve PF endurance to 10 sec 's in supine. (06/17/20: Quick Flicks: 8 reps before fatigue on R lateral lara.) LTG Duration 05/02/21 (06/17/20: MET GOAL, but Quick Flicks decr'd endurance) Four Impairment Decreased PF strength rated 2/ 5 in supine Assisted Goal (LTG) Improve PF strength to 3/5 in supine. 10/28/20: L lateral wall is 2 /5, R lateral wall is 1/5, Anterior is 1/5, Posterior is 3/5. (05/13/20 EVAL: L lateral wall is 2/5, R lateral wall is 0/5, Anterior is 0/5, Posterior is 1/5 LTG Duration 05/02/21 (10/28/20: Improving ) Three Impairment Poor core stability due to severe Diastasis Rectus. Short Term Goal (STG) Pt will be educated in proper transfers and use of K-tape to assist with DR closure through self management. STG Duration 05/27/20 (07/04/20: MET GOAL) Director Digital Advertising Goal (LTG) Pt will demonstrate DR closure . 10/28/20: Above umbilicus: 3 above is 1.0-1.5 finger widths (shallow), 2 above is 1.5 finger widths, 1 above is 2.5 finger widths (worse). Below umbilicus: 1 is 1.5 finger width ( shallow), 2 is 1.5 finger widths (very shallow). (Initial DR measurements: Above umbilicus: 5 above is closed at Xyphoid Process; 4 above is 1.5 finger widths; 3 above is 2.5 finger widths, 2 above is 3 finger widths, 1 above is 3.5 finger widths. Below umbilicus: 1 is 3.5 finger widths, 2 is 2.5 finger widths; 3 0.5 finger widths; 4 is closed) LTG Duration 05/02/21 (07/18/20: Progressing w/REDUCED diastasis & able to perform a TA) Two Impairment Poor management of Urge incontinence Short Term Goal (STG) Pt will be educated in Urge incontinence and bladder retraining. STG Duration GOAL MET. Director Digital Advertising Goal (LTG) Pt will be able to make it to the bathroom at work and home with minimal to no urinary leakage. (06/14/20: No leakage since last session). LTG Duration 07/26/20 (06/17/20: MET GOAL) One Impairment Lacks self care HEP Director Digital Advertising Goal (LTG) Pt will be independent with a self care HEP to promote hip and core strength and PF mobility. LTG Duration 05/02/21 (09/12/20: Progressing) Progress Towards Goals Progress Towards Goals Progressing Toward Goals Progress Comments Goal 1: Progressing HEP as appropriate. Goal 2: STG & LTG's MET. Goal 3: STG MET, LTG is progressing. Goal 4: Progressing. Goal 5: MET for long holds. Quick Flicks endurance is 8 reps prior to fatigue. Goal 6: MET GOAL Assessment Summary Assessment Pt has reported today no episodes of urinary leakage. Her concern is her core instability associated with her diastasis rectus and her decreased PF strength. Her PF strength has been variable in locations of weakness. Today her lateral lara are weak. She has worked hard at home with notable improvement in her posterior PF strength. As expected, her rehabilitation time is extended due to her continuation of working and having to care for her young son. She would like to continue physical therapy to improve her PF strength and work towards improving her core stability as noted by a reduction of her diastasis rectus. I feel this is appropriate since she has very good potential to further improve. Physical Therapy Plan Frequency and Duration Frequency of Treatment 1x/Week Plan of Care Start Date 10/28/20 Plan of Care End Date 05/02/21 Therapeutic Interventions Therapeutic Interventions Home Exercise Program,Manual Therapy,Neuromuscular Re- education,Patient/Caregiver Education,Self-Care/Home Management,Soft Tissue Mobilization,Taping, Therapeutic Exercises Modalities Electric Stimulation Next Visit Focus/Plan Next Note Type Treatment Note Next Visit Plan Initiate MFR release to Abdominal muscles (and Urachus ) to promote a decrease in DR. Progress trunk rotation strengthening. Review hip AD strengthening and discuss with pt to improve along with PF strengthening of lateral lara (R>L). Monitor DR as core strengthening is progressed. Monitor EMG biofeedback for relaxation ability of PF after contraction. Strengthen R lateral wall quick Flicks to 10 on right side, and both lateral lara to 3/5. EMG biofeedback awareness training on proper PF contraction (E-Stim) and for relaxation after long holds and quick flick contractions. Add to HEP: R hip AD strengthening & progressive core strengthening to decrease DR. Progress core stab with leg slide & progress TA strengthening of roll in/outs by adding resistance band and ball. Plan of Care Dates Plan of Care Start Date 10/28/20 Plan of Care End Date 05/02/21 Electronically Signed by: Lena Myers, PT 10/28/20 4250 Please Sign and Return: I have reviewed this Plan of Care and certify that the skilled therapy services above are required to meet the patient?s needs. Physician Signature Date Printed Name and Credentials Clinical Instructor Signature Printed Name and Credentials
--- NOTE | 2020-11-06 13:45 | PT-OP ANOTE ---
Per phone: Message left for pt to call regarding new provider taking place of her initial provider in order to send POC for provider approval. Pt notified that if POC not signed off by provider, then her appt tomorrow will need to be cancelled. Pt to call back with information.
--- NOTE | 2020-11-06 13:47 | PT-OP ANOTE ---
Per phone, spoke with sales receptionist, Nahed, at [facility] to find out pt's new provider and request POC by reviewed and signed for pt to continue therapy tomorrow. New Provider Stanford Guerin NP. Stanford's nurse PAT Forte may call if any questions regarding plan of care. Fax # given was [phone]. POC was then re-faxed
--- NOTE | 2020-11-26 16:42 | PT.OTN ---
Current Diagnoses Other specified disorders of muscle (11/26/20) Stress incontinence (female) (male) (11/26/20) Abnormal posture (11/26/20) Physical Therapy Treatment Note PT-OP-A Visit Information Start: 05/09/20 21:10 Freq: Status: Active Protocol: Document 11/26/20 12:51 LRN (Rec: 11/26/20 13:35 LRN [id number]) Out-Patient Physical Therapy Visit Information Visit Information Visit Type Treatment Note Visit Start Time 12:51 Visit Stop Time 13:35 Total Visit Minutes 44 Visit Number 19 Evaluation Information Evaluation Date 05/13/20 Precautions Precautions None PT-OP-B Current Condition Start: 05/09/20 21:10 Freq: Status: Active Protocol: Document 05/13/20 08:57 LRN (Rec: 05/13/20 09:52 LRN [id number]) Current Condition History of Current Condition Onset Date 06/2018 History of Current Condition Childbirth of son in 04/2018 with a lot of tearing. Currently notices leakage with strong urge while trying to get into her house and after running. Sometimes she leaks during running, but mainly immediately afterwards. She is running 2x/week for 2-3 miles (1/2 hour). Was occasionally running before (2-3x/month, 1-2 miles). Denies constipation and denies leakage with cough or sneeze or activity when no urge is present. Leakage only with strong urge, Prior Treatments and Tests None Developmental History Developmental History See above Treatment Goals Patient/Caregiver Goals Goal is to have more control of her urine and to not wet underwear when trying to control urine. Prior Functional Status Baseline Function- ADL's Independent Baseline Function- Mobility Independent Baseline Function- Recreation/Hobbies Ran 2-3x/month, 1-2 mile runs. Current Functional Impairments (Reported) Functional Limitations- ADL's Unable to control urine with a strong urge. 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 Functional Limitations- Recreation/ Trickle of urinary leakage Hobbies during running and not able to maintain continence after running or if drinking water after running. 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 Stopped 2 weeks ago, milk production still present. PT-OP-C Subjective Start: 05/09/20 21:10 Freq: Status: Active Protocol: Document 11/26/20 12:51 LRN (Rec: 11/26/20 13:35 LRN [id number]) OP-PT Subjective Patient Comments Patient Comments Busy the past weeks and doing squat exercises and LTR with legs on TBall. PT-OP-G Mobility & Gait Start: 05/09/20 21:10 Freq: Status: Active Protocol: Document 05/13/20 08:57 LRN (Rec: 05/13/20 18:37 LRN [id number]) OP Mobility Evaluation Transfers Bed to Chair Transfers Transfers to supine by lying straight back and to sitting by a sit up motion. PT-OP-I Pelvic Floor Start: 05/09/20 21:10 Freq: Status: Active Protocol: Document 11/26/20 12:51 LRN (Rec: 11/26/20 13:35 LRN [id number]) Pelvic Floor Assessment Comments Pelvic Floor Comments 11/26/20: DR: Above umbilicus: 3 above is 1.0 finger width 2 above is 1.0 finger widths, 1 above is 2.0 finger widths. Below umbilicus: 1 is shallow 1.5 finger width , 2 is very shallow 1.5 finger widths PT-OP-J Posture/Palpation/Skin Start: 05/09/20 21:10 Freq: Status: Active Protocol: Document 05/13/20 08:57 LRN (Rec: 05/13/20 18:37 LRN [id number]) Posture Evaluation Position Standing Evaluation View All positions Head/C-Spine Posture Side Bent Left L-Spine Posture Rotation Right,Increased Lordosis Shoulder Posture (L) Elevated Pelvis Posture Anteriorly Tilted Knee Posture (L) Genu Valgus,(R) Genu Valgus Foot Arch (L) No Arch,(R) No Arch PT-OP-K Range of Motion Start: 05/09/20 21:10 Freq: Status: Active Protocol: Document 06/17/20 10:36 LRN (Rec: 06/17/20 18:21 LRN [id number]) Hip Goniometric Range of Motion Hip Right Passive Testing Position Supine Internal Rotation 25 External Rotation 75 Left Passive Testing Position Supine Internal Rotation 40 External Rotation 80 PT-OP-M Strength Start: 05/09/20 21:10 Freq: Status: Active Protocol: Document 10/03/20 12:49 LRN (Rec: 10/03/20 13:43 LRN [id number]) Hip Strength Hip Manual Muscle Testing Right Flexion (L2) 4+ Good+ Abduction 5 Normal Adduction 4+ Good+ Comments hip Flex weak due to weakness of core of left rotators. Left Flexion (L2) 5 Normal Abduction 5 Normal Adduction 4+ Good+ PT-OP-Q Treatments Start: 05/09/20 21:10 Freq: Status: Active Protocol: Document 11/26/20 12:51 LRN (Rec: 11/26/20 13:35 LRN [id number]) Therapeutic Exercises Supine Exercises Trunk rot feet on T-Ball Supine Exercise Name Trunk rot side to side & single sided strengthening Side bilateral Resistance Lev 2 Reps/Minutes 6' Rot Hands/knees ritchie push Supine Exercise Name Rot Hands/knees ritchie push Side bilateral Reps/Minutes 6' Comments Phys cuing needed for TA hold Hip PROM Supine Exercise Name Hip ER stretch (Fig 4) Side bilateral TA Supine Exercise Name TA head lifts strengthening. Reps/Minutes 4' Sidelying Exercises L hipo AD/PF & TA on Sidelying Exercise Name L Hip AD w/Long holds & TA Side left Reps/Minutes 10 hold x 1 Comments Quing for proper breathing L hip AD w/Quick Flicks Sidelying Exercise Name L hip AD w/Quuick Flicks & TA Side left Equipment Used 2# Reps/Minutes 10x 2 Comments Quing for proper breathing R hip AD w/Quick Flicks Sidelying Exercise Name Hip AD w/Quick Flicks & TA Side right Reps/Minutes 10x 3 Comments Quing for proper breathing Hip AD w/PF & TA on Sidelying Exercise Name Hip AD w/Long holds & TA Side right Reps/Minutes 10 hold x 2 Comments Quing for proper breathing Manual Therapy Treatment Soft Tissue Mobilization Abdominal Body Location Rectus & Urachus Mobilization Type Myofascial Release Trunk rotators Body Location L>R trunk rotators Mobilization Type Myofascial Release,Other Body Position Supine Comments 8' MFR Stacking technique, and contract/relax stretching PT-OP-T Assessment and Plan Start: 05/09/20 21:10 Freq: Status: Active Protocol: Document 11/26/20 12:51 LRN (Rec: 11/26/20 13:35 LRN [id number]) Physical Therapy Assessment Goals Five Impairment Decreased PF endurance of 5 sec's in supine Page Designer Goal (LTG) Improve PF endurance to 10 sec 's in supine. (06/17/20: Quick Flicks: 8 reps before fatigue on R lateral lara.) LTG Duration 05/02/21 (06/17/20: MET GOAL, but Quick Flicks decr'd endurance) Four Impairment Decreased PF strength rated 2/ 5 in supine Page Designer Goal (LTG) Improve PF strength to 3/5 in supine. 10/28/20: L lateral wall is 2 /5, R lateral wall is 1/5, Anterior is 1/5, Posterior is 3/5. (05/13/20 EVAL: L lateral wall is 2/5, R lateral wall is 0/5, Anterior is 0/5, Posterior is 1/5 LTG Duration 05/02/21 (10/28/20: Improving ) Three Impairment Poor core stability due to severe Diastasis Rectus. Short Term Goal (STG) Pt will be educated in proper transfers and use of K-tape to assist with DR closure through self management. STG Duration 05/27/20 (07/04/20: MET GOAL) Care Home Goal (LTG) Pt will demonstrate DR closure . 11/26/20: Above umbilicus: 3 above is 1.0 finger widths ( shallow), 2 above is 1.0 finger widths, 1 above is 2.0 finger widths. Below umbilicus: 1 is 1.5 finger width ( shallow), 2 is 1.5 finger widths (very shallow). (Initial DR measurements: Above umbilicus: 5 above is closed at Xyphoid Process; 4 above is 1.5 finger widths; 3 above is 2.5 finger widths, 2 above is 3 finger widths, 1 above is 3.5 finger widths. Below umbilicus: 1 is 3.5 finger widths, 2 is 2.5 finger widths; 3 0.5 finger widths; 4 is closed) LTG Duration 05/02/21 (11/26/20: Progressing w/REDUCED diastasis & able to perform a TA) Two Impairment Poor management of Urge incontinence Short Term Goal (STG) Pt will be educated in Urge incontinence and bladder retraining. STG Duration GOAL MET. Care Home Goal (LTG) Pt will be able to make it to the bathroom at work and home with minimal to no urinary leakage. (06/14/20: No leakage since last session). LTG Duration 07/26/20 (06/17/20: MET GOAL) One Impairment Lacks self care HEP Page Designer Goal (LTG) Pt will be independent with a self care HEP to promote hip and core strength and PF mobility. LTG Duration 05/02/21 (09/12/20: Progressing) Progress Towards Goals Progress Comments Goal 3: LTG progressing. Assessment Summary Assessment DR separation is less above the umbilicus by 1/2 finger width (1, 2, 3 above umbilicus), no difference below umbilicus. Physical Therapy Plan Frequency and Duration Frequency of Treatment 1x/Week Plan of Care Start Date 10/28/20 Plan of Care End Date 05/02/21 Next Visit Focus/Plan Next Note Type Treatment Note Next Visit Plan Focus on PF Lateral wall & core rotators/TA strengthening & DR closure. Continue MFR release to Abdominal muscles ( and Urachus) to promote a decrease in DR. Progress trunk rotation strengthening. Assess pt adherence to hip AD strengthening to improve PF strengthening & lateral lara (R>L). Monitor DR as core strengthening is progressed. Monitor EMG biofeedback for relaxation ability of PF after contraction. Strengthen R lateral wall quick Flicks to 10 on right side, and both lateral lara to 3/5. EMG biofeedback awareness training on proper PF contraction (E-Stim) and for relaxation after long holds and quick flick contractions. Add to HEP: R hip AD strengthening & progressive core strengthening to decrease DR. Progress core stab with leg slide & progress TA strengthening of roll in/outs by adding resistance band and ball.
--- NOTE | 2020-12-09 16:30 | PT.OTN ---
Current Diagnoses Other specified disorders of muscle (12/09/20) Stress incontinence (female) (male) (12/09/20) Abnormal posture (12/09/20) Physical Therapy Treatment Note PT-OP-A Visit Information Start: 05/09/20 21:10 Freq: Status: Active Protocol: Document 12/09/20 15:07 LRN (Rec: 12/09/20 16:14 LRN [id number]) Out-Patient Physical Therapy Visit Information Visit Information Visit Type Treatment Note Visit Note 2 after PN Visit Start Time 15:06 Visit Stop Time 15:52 Total Visit Minutes 46 Visit Number 20 Evaluation Information Evaluation Date 05/13/20 Precautions Precautions None PT-OP-B Current Condition Start: 05/09/20 21:10 Freq: Status: Active Protocol: Document 05/13/20 08:57 LRN (Rec: 05/13/20 09:52 LRN [id number]) Current Condition History of Current Condition Onset Date 06/2018 History of Current Condition Childbirth of son in 04/2018 with a lot of tearing. Currently notices leakage with strong urge while trying to get into her house and after running. Sometimes she leaks during running, but mainly immediately afterwards. She is running 2x/week for 2-3 miles (1/2 hour). Was occasionally running before (2-3x/month, 1-2 miles). Denies constipation and denies leakage with cough or sneeze or activity when no urge is present. Leakage only with strong urge, Prior Treatments and Tests None Developmental History Developmental History See above Treatment Goals Patient/Caregiver Goals Goal is to have more control of her urine and to not wet underwear when trying to control urine. Prior Functional Status Baseline Function- ADL's Independent Baseline Function- Mobility Independent Baseline Function- Recreation/Hobbies Ran 2-3x/month, 1-2 mile runs. Current Functional Impairments (Reported) Functional Limitations- ADL's Unable to control urine with a strong urge. 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 Functional Limitations- Recreation/ Trickle of urinary leakage Hobbies during running and not able to maintain continence after running or if drinking water after running. 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 Stopped 2 weeks ago, milk production still present. PT-OP-C Subjective Start: 05/09/20 21:10 Freq: Status: Active Protocol: Document 12/09/20 15:07 LRN (Rec: 12/09/20 16:14 LRN [id number]) OP-PT Subjective Patient Comments Patient Comments Work schedule is more stable and child is active. States she wants to decrease her DR and improve the stability of core. PT-OP-G Mobility & Gait Start: 05/09/20 21:10 Freq: Status: Active Protocol: Document 05/13/20 08:57 LRN (Rec: 05/13/20 18:37 LRN [id number]) OP Mobility Evaluation Transfers Bed to Chair Transfers Transfers to supine by lying straight back and to sitting by a sit up motion. PT-OP-I Pelvic Floor Start: 05/09/20 21:10 Freq: Status: Active Protocol: Document 12/09/20 15:07 LRN (Rec: 12/09/20 16:14 LRN [id number]) Pelvic Floor Assessment Comments Pelvic Floor Comments 12/09/20: DR: Above umbilicus: 3 above is 1.0 finger width very shallow. 2 above is 1.0 finger widths, 1 above is 1.5-2.0 finger widths. Below umbilicus: 1 is shallow 1.5 finger width , 2 is very shallow 0.5 finger widths PT-OP-J Posture/Palpation/Skin Start: 05/09/20 21:10 Freq: Status: Active Protocol: Document 05/13/20 08:57 LRN (Rec: 05/13/20 18:37 LRN [id number]) Posture Evaluation Position Standing Evaluation View All positions Head/C-Spine Posture Side Bent Left L-Spine Posture Rotation Right,Increased Lordosis Shoulder Posture (L) Elevated Pelvis Posture Anteriorly Tilted Knee Posture (L) Genu Valgus,(R) Genu Valgus Foot Arch (L) No Arch,(R) No Arch PT-OP-K Range of Motion Start: 05/09/20 21:10 Freq: Status: Active Protocol: Document 06/17/20 10:36 LRN (Rec: 06/17/20 18:21 LRN [id number]) Hip Goniometric Range of Motion Hip Right Passive Testing Position Supine Internal Rotation 25 External Rotation 75 Left Passive Testing Position Supine Internal Rotation 40 External Rotation 80 PT-OP-M Strength Start: 05/09/20 21:10 Freq: Status: Active Protocol: Document 10/03/20 12:49 LRN (Rec: 10/03/20 13:43 LRN [id number]) Hip Strength Hip Manual Muscle Testing Right Flexion (L2) 4+ Good+ Abduction 5 Normal Adduction 4+ Good+ Comments hip Flex weak due to weakness of core of left rotators. Left Flexion (L2) 5 Normal Abduction 5 Normal Adduction 4+ Good+ PT-OP-Q Treatments Start: 05/09/20 21:10 Freq: Status: Active Protocol: Document 12/09/20 15:07 LRN (Rec: 12/09/20 16:14 LRN [id number]) Therapeutic Exercises Supine Exercises T-Ball Bridge Supine Exercise Name Core Stab: T-Ball Bridge Equipment Used yard stick across ASIS' Reps/Minutes 10' Comments Extra time to obtain proper stab posture & practice. Trunk rot feet on T-Ball Supine Exercise Name Trunk rot side to side & single sided strengthening Side bilateral Resistance Lev 2 Reps/Minutes 10' Sidelying Exercises Side Planks Sidelying Exercise Name 1/2 side planks Side bilateral Reps/Minutes 8' (5-8 sec holds) Comments Extra time for training and finding max tolerance Clamshell w/TA & PF Sidelying Exercise Name Clamshell w/TA & PF Side bilateral Comments V. cuing for TA/PF contraction & proper breathing Reverse Clam Sidelying Exercise Name TA/Knees bent 45 deg's, lifting top foot w/PF contraction Side bilateral Reps/Minutes Alternating PF contraction ex (2x with lift, 4 x without lift). Comments Review cuing for TA stab to prevent trunk rot, & breath work. Manual Therapy Treatment Manual Techniques Checking Diastasis Rectus Type Manual palpation Body Location Abdomen Body Position Supine Reps/Duration 3' Comments DR: Above umbilicus: 3 above is 1.0 finger widths, 2 above is 1.5 finger widths, 1 above is 1.75 finger widths . Below umbilicus: 2 is 1.5 shallow finger widths; 1 is 1.5 finger widths Self-Care/Home Management Treatment Education Patient Education Home Exercise Program Other Education Discussed plan of care, pt goals with therapy, and progress to goals. Decided to continue 1x/2 weeks and in 1 month to reassess appropriateness to attendance change to 1x/month. Activities Self-Care/Home Management Activities Issued HEP: PF contraction with hip AD (lateral wall strengthening), and 1/2 side planks. PT-OP-T Assessment and Plan Start: 05/09/20 21:10 Freq: Status: Active Protocol: Document 12/09/20 15:07 LRN (Rec: 12/09/20 16:14 LRN [id number]) Physical Therapy Assessment Goals Five Impairment Decreased PF endurance of 5 sec's in supine Fence Erector Goal (LTG) Improve PF endurance to 10 sec 's in supine. (06/17/20: Quick Flicks: 8 reps before fatigue on R lateral lara.) LTG Duration 05/02/21 (06/17/20: MET GOAL, but Quick Flicks decr'd endurance) Four Impairment Decreased PF strength rated 2/ 5 in supine Senior Living Goal (LTG) Improve PF strength to 3/5 in supine. 10/28/20: L lateral wall is 2 /5, R lateral wall is 1/5, Anterior is 1/5, Posterior is 3/5. (05/13/20 EVAL: L lateral wall is 2/5, R lateral wall is 0/5, Anterior is 0/5, Posterior is 1/5 LTG Duration 05/02/21 (10/28/20: Improving ) Three Impairment Poor core stability due to severe Diastasis Rectus. Short Term Goal (STG) Pt will be educated in proper transfers and use of K-tape to assist with DR closure through self management. STG Duration 05/27/20 (07/04/20: MET GOAL) Fence Erector Goal (LTG) Pt will demonstrate DR closure . 11/26/20: Above umbilicus: 3 above is 1.0 finger widths ( shallow), 2 above is 1.0 finger widths, 1 above is 2.0 finger widths. Below umbilicus: 1 is 1.5 finger width ( shallow), 2 is 1.5 finger widths (very shallow). (Initial DR measurements: Above umbilicus: 5 above is closed at Xyphoid Process; 4 above is 1.5 finger widths; 3 above is 2.5 finger widths, 2 above is 3 finger widths, 1 above is 3.5 finger widths. Below umbilicus: 1 is 3.5 finger widths, 2 is 2.5 finger widths; 3 0.5 finger widths; 4 is closed) LTG Duration 05/02/21 (12/09/20: Progressing w/decreased depth of diastasis at ends) One Impairment Lacks self care HEP Senior Living Goal (LTG) Pt will be independent with a self care HEP to promote hip and core strength and PF mobility. LTG Duration 05/02/21 (12/09/20: Progressing) Progress Towards Goals Progress Comments 3 above and 2 [address] the [address] has become very shallow, moving towards closure. Progressed HEP. Assessment Summary Assessment Decreasing symptoms of DR. Pt weak in pelvic L rotators & lateral trunk muscles, difficulty holding 1/2 plank, bilaterally. Not able to lift head or hold regular plank without abdomen doming. Physical Therapy Plan Frequency and Duration Frequency of Treatment 1x/Week Plan of Care Start Date 10/28/20 Plan of Care End Date 05/02/21 Next Visit Focus/Plan Next Note Type Treatment Note Next Visit Plan Focus on PF Lateral wall & core lateral trunk & rotators/ TA strengthening & DR closure. Continue MFR release to Abdominal muscles (and Urachus ) to promote a decrease in DR. Progress trunk rotation strengthening. Assess pt adherence to hip AD strengthening to improve PF strengthening & lateral lara (R>L). Monitor DR as core strengthening is progressed. Monitor EMG biofeedback for relaxation ability of PF after contraction. Strengthen R lateral wall quick Flicks to 10 on right side, and both lateral lara to 3/5. EMG biofeedback awareness training on proper PF contraction (E-Stim) and for relaxation after long holds and quick flick contractions. Add to HEP: R hip AD strengthening & progressive core strengthening to decrease DR. Progress core stab with leg slide & progress TA strengthening of roll in/outs by adding resistance band and ball.
--- NOTE | 2020-12-23 17:17 | PT.OTN ---
Current Diagnoses Other specified disorders of muscle (12/23/20) Stress incontinence (female) (male) (12/23/20) Abnormal posture (12/23/20) Physical Therapy Treatment Note PT-OP-A Visit Information Start: 05/09/20 21:10 Freq: Status: Active Protocol: Document 12/23/20 15:10 LRN (Rec: 12/23/20 16:39 LRN [id number]) Out-Patient Physical Therapy Visit Information Visit Information Visit Type Treatment Note Visit Start Time 15:10 Visit Stop Time 16:55 Total Visit Minutes 45 Visit Number 21 Evaluation Information Evaluation Date 05/13/20 Precautions Precautions None PT-OP-B Current Condition Start: 05/09/20 21:10 Freq: Status: Active Protocol: Document 05/13/20 08:57 LRN (Rec: 05/13/20 09:52 LRN [id number]) Current Condition History of Current Condition Onset Date 06/2018 History of Current Condition Childbirth of son in 04/2018 with a lot of tearing. Currently notices leakage with strong urge while trying to get into her house and after running. Sometimes she leaks during running, but mainly immediately afterwards. She is running 2x/week for 2-3 miles (1/2 hour). Was occasionally running before (2-3x/month, 1-2 miles). Denies constipation and denies leakage with cough or sneeze or activity when no urge is present. Leakage only with strong urge, Prior Treatments and Tests None Developmental History Developmental History See above Treatment Goals Patient/Caregiver Goals Goal is to have more control of her urine and to not wet underwear when trying to control urine. Prior Functional Status Baseline Function- ADL's Independent Baseline Function- Mobility Independent Baseline Function- Recreation/Hobbies Ran 2-3x/month, 1-2 mile runs. Current Functional Impairments (Reported) Functional Limitations- ADL's Unable to control urine with a strong urge. 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 Functional Limitations- Recreation/ Trickle of urinary leakage Hobbies during running and not able to maintain continence after running or if drinking water after running. 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 Stopped 2 weeks ago, milk production still present. PT-OP-C Subjective Start: 05/09/20 21:10 Freq: Status: Active Protocol: Document 12/23/20 15:10 LRN (Rec: 12/23/20 16:39 LRN [id number]) OP-PT Subjective Patient Comments Patient Comments No leaks, did most of the exercise. PT-OP-G Mobility & Gait Start: 05/09/20 21:10 Freq: Status: Active Protocol: Document 05/13/20 08:57 LRN (Rec: 05/13/20 18:37 LRN [id number]) OP Mobility Evaluation Transfers Bed to Chair Transfers Transfers to supine by lying straight back and to sitting by a sit up motion. PT-OP-I Pelvic Floor Start: 05/09/20 21:10 Freq: Status: Active Protocol: Document 12/23/20 15:10 LRN (Rec: 12/23/20 16:39 LRN [id number]) Pelvic Floor Assessment Comments Pelvic Floor Comments 12/23/20: DR: Above umbilicus: 3 above is 1.0 finger width very shallow. 2 above is 1.0 finger widths, shallow at distal end. 1 above is 1.5 finger widths. Below umbilicus: 1 is shallow 1.0 finger width , 2 is very shallow 0.5 finger widths, mostly closed PT-OP-J Posture/Palpation/Skin Start: 05/09/20 21:10 Freq: Status: Active Protocol: Document 05/13/20 08:57 LRN (Rec: 05/13/20 18:37 LRN [id number]) Posture Evaluation Position Standing Evaluation View All positions Head/C-Spine Posture Side Bent Left L-Spine Posture Rotation Right,Increased Lordosis Shoulder Posture (L) Elevated Pelvis Posture Anteriorly Tilted Knee Posture (L) Genu Valgus,(R) Genu Valgus Foot Arch (L) No Arch,(R) No Arch PT-OP-K Range of Motion Start: 05/09/20 21:10 Freq: Status: Active Protocol: Document 06/17/20 10:36 LRN (Rec: 06/17/20 18:21 LRN [id number]) Hip Goniometric Range of Motion Hip Right Passive Testing Position Supine Internal Rotation 25 External Rotation 75 Left Passive Testing Position Supine Internal Rotation 40 External Rotation 80 PT-OP-M Strength Start: 05/09/20 21:10 Freq: Status: Active Protocol: Document 10/03/20 12:49 LRN (Rec: 10/03/20 13:43 LRN [id number]) Hip Strength Hip Manual Muscle Testing Right Flexion (L2) 4+ Good+ Abduction 5 Normal Adduction 4+ Good+ Comments hip Flex weak due to weakness of core of left rotators. Left Flexion (L2) 5 Normal Abduction 5 Normal Adduction 4+ Good+ PT-OP-Q Treatments Start: 05/09/20 21:10 Freq: Status: Active Protocol: Document 12/23/20 15:10 LRN (Rec: 12/23/20 16:39 LRN [id number]) Therapeutic Exercises Supine Exercises TA/Reverse leg lift Supine Exercise Name TA/Reverse Leg lift (focus on core stab w/R leg lifts) Side bilateral Reps/Minutes 6' Comments Pt needed much training to sometimes achieve core stab w R leg lift, NL LLE T-Ball Bridge Supine Exercise Name Core Stab: T-Ball Bridge Equipment Used yard stick across ASIS' Reps/Minutes 4' Comments Extra time to obtain proper stab posture & practice. Trunk rot feet on T-Ball Supine Exercise Name Trunk rot (knee rolling right/ arms moving left) Side bilateral Reps/Minutes 8' TA Supine Exercise Name TA head lifts strengthening. Reps/Minutes 2' Comments DR measurements taken Sidelying Exercises L hipo AD/PF & TA on Sidelying Exercise Name L Hip AD w/Long holds & TA Side bilateral Reps/Minutes 10x 2 left (more on R) Comments Long holds L hip AD w/Quick Flicks Sidelying Exercise Name L hip AD w/Quuick Flicks & TA Side left Reps/Minutes 10x 2 Comments Quing for proper breathing R hip AD w/Quick Flicks Sidelying Exercise Name Hip AD w/Quick Flicks & TA Side right Reps/Minutes 10x 3 Comments Quing for proper breathing Hip AD w/PF & TA on Sidelying Exercise Name Hip AD w/Long holds & TA Side right Reps/Minutes 10 x 4 Comments Quing for proper breathing Manual Therapy Treatment Soft Tissue Mobilization Abdominal Body Location Rectus & Urachus Mobilization Type Myofascial Release Trunk rotators Body Location R rotators on L trunk side Mobilization Type Myofascial Release,Other Intensity/Depth Superficial & Moderate Body Position Supine Comments 12' MFR Stacking technique, and contract/relax stretching Self-Care/Home Management Treatment Education Patient Education Home Exercise Program Activities Self-Care/Home Management Activities During ex pt I/S to focus on: Trunk R rot strengthening, TA at all times of activity vs relying on abdominal binder, Core stab w/Bridging & Marching, Self MFR of Abdomen. PT-OP-T Assessment and Plan Start: 05/09/20 21:10 Freq: Status: Active Protocol: Document 12/23/20 15:10 LRN (Rec: 12/23/20 16:39 LRN [id number]) Physical Therapy Assessment Goals Five Impairment Decreased PF endurance of 5 sec's in supine Prison Goal (LTG) Improve PF endurance to 10 sec 's in supine. (06/17/20: Quick Flicks: 8 reps before fatigue on R lateral lara.) LTG Duration 05/02/21 (06/17/20: MET GOAL, but Quick Flicks decr'd endurance) Four Impairment Decreased PF strength rated 2/ 5 in supine Greenhouse Laborer Goal (LTG) Improve PF strength to 3/5 in supine. 10/28/20: L lateral wall is 2 /5, R lateral wall is 1/5, Anterior is 1/5, Posterior is 3/5. (05/13/20 EVAL: L lateral wall is 2/5, R lateral wall is 0/5, Anterior is 0/5, Posterior is 1/5 LTG Duration 05/02/21 (10/28/20: Improving ) Three Impairment Poor core stability due to severe Diastasis Rectus. Short Term Goal (STG) Pt will be educated in proper transfers and use of K-tape to assist with DR closure through self management. STG Duration 05/27/20 (07/04/20: MET GOAL) Prison Goal (LTG) Pt will demonstrate DR closure . 12/23/20: DR: Above umbilicus: 3 above is 1.0 finger width very shallow. 2 above is 1.0 finger widths, shallow at distal end. 1 above is 1.5 finger widths. Below umbilicus: 1 is shallow 1.0 finger width , 2 is very shallow 0.5 finger widths, mostly closed (Initial DR measurements: Above umbilicus: 5 above is closed at Xyphoid Process; 4 above is 1.5 finger widths; 3 above is 2.5 finger widths, 2 above is 3 finger widths, 1 above is 3.5 finger widths. Below umbilicus: 1 is 3.5 finger widths, 2 is 2.5 finger widths; 3 0.5 finger widths; 4 is closed) LTG Duration 05/02/21 (12/23/20: Progressing ) One Impairment Lacks self care HEP Prison Goal (LTG) Pt will be independent with a self care HEP to promote hip and core strength and PF mobility. LTG Duration 05/02/21 (12/09/20: Progressing) Progress Towards Goals Progress Comments DR 1 above umbilicus is 1.5 finger widths, was 1.5-2.0 finger widths. Below umbilicus: 1 is shallow 1.0 finger width , was 1.5 finger widths. Assessment Summary Assessment Pt DR appears mildly improved in area immediately surrounding the umbilicus (see above). Pt not able to hold her core in neutral with reverse leg lifts due to weak R trunk/pelvic rotators, but pt demonstrated improved awareness by identifying weak muscles and mostly controlling her core with bridging. Pt appears to be adhering to doing her hip AD/TA strengthening on her HEP. Physical Therapy Plan Frequency and Duration Frequency of Treatment 1x/Week Plan of Care Start Date 10/28/20 Plan of Care End Date 05/02/21 Next Visit Focus/Plan Next Note Type Treatment Note Next Visit Plan Reassess ~ 01/09/21. Focus on PF Lateral wall & core lateral trunk & rotators/TA strengthening (check lateral planks) & DR closure. Continue MFR release to Abdominal muscles (and Urachus ) to promote a decrease in DR. Progress trunk rotation strengthening to sit>stand. Monitor DR as core strengthening is progressed. Monitor EMG biofeedback for relaxation ability of PF after contraction. Strengthening R lateral wall quick Flicks to 10 on right side, and both lateral lara to 3/5. EMG biofeedback awareness training on proper PF contraction (E-Stim) and for relaxation after long holds and quick flick contractions. Add to HEP: R hip AD strengthening & progressive core strengthening to decrease DR. Progress core stab with leg slide & progress TA strengthening of roll in/outs by adding resistance band and ball.
--- NOTE | 2020-12-27 15:27 | PT-OP ANOTE ---
Per phone conversation pt notified that a message was received that PT has not received her new authorization. I recommended that the pt call back on Wednesday to speak to Latrice regarding if authorization was received to continue therapy.
--- NOTE | 2021-01-06 16:07 | PT-OP ANOTE ---
Same day cancellation due to schedule conflict.
--- NOTE | 2021-01-20 16:36 | PT.OTN ---
Current Diagnoses Other specified disorders of muscle (01/20/21) Stress incontinence (female) (male) (01/20/21) Abnormal posture (01/20/21) Physical Therapy Treatment Note PT-OP-A Visit Information Start: 05/09/20 21:10 Freq: Status: Active Protocol: Document 01/20/21 15:10 LRN (Rec: 01/20/21 16:35 LRN [id number]) Out-Patient Physical Therapy Visit Information Visit Information Visit Type Treatment Note Visit Note 4 after PN Visit Start Time 15:04 Visit Stop Time 16:00 Total Visit Minutes 56 Visit Number 22 Evaluation Information Evaluation Date 05/13/20 Precautions Precautions None PT-OP-B Current Condition Start: 05/09/20 21:10 Freq: Status: Active Protocol: Document 05/13/20 08:57 LRN (Rec: 05/13/20 09:52 LRN [id number]) Current Condition History of Current Condition Onset Date 06/2018 History of Current Condition Childbirth of son in 04/2018 with a lot of tearing. Currently notices leakage with strong urge while trying to get into her house and after running. Sometimes she leaks during running, but mainly immediately afterwards. She is running 2x/week for 2-3 miles (1/2 hour). Was occasionally running before (2-3x/month, 1-2 miles). Denies constipation and denies leakage with cough or sneeze or activity when no urge is present. Leakage only with strong urge, Prior Treatments and Tests None Developmental History Developmental History See above Treatment Goals Patient/Caregiver Goals Goal is to have more control of her urine and to not wet underwear when trying to control urine. Prior Functional Status Baseline Function- ADL's Independent Baseline Function- Mobility Independent Baseline Function- Recreation/Hobbies Ran 2-3x/month, 1-2 mile runs. Current Functional Impairments (Reported) Functional Limitations- ADL's Unable to control urine with a strong urge. 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 Functional Limitations- Recreation/ Trickle of urinary leakage Hobbies during running and not able to maintain continence after running or if drinking water after running. 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 Stopped 2 weeks ago, milk production still present. PT-OP-C Subjective Start: 05/09/20 21:10 Freq: Status: Active Protocol: Document 01/20/21 15:10 LRN (Rec: 01/20/21 16:35 LRN [id number]) OP-PT Subjective Patient Comments Patient Comments Hasn't done as much ex but no leaks. Does PF ex's 1x/day. PT-OP-G Mobility & Gait Start: 05/09/20 21:10 Freq: Status: Active Protocol: Document 05/13/20 08:57 LRN (Rec: 05/13/20 18:37 LRN [id number]) OP Mobility Evaluation Transfers Bed to Chair Transfers Transfers to supine by lying straight back and to sitting by a sit up motion. PT-OP-I Pelvic Floor Start: 05/09/20 21:10 Freq: Status: Active Protocol: Document 01/20/21 15:10 LRN (Rec: 01/20/21 16:35 LRN [id number]) Pelvic Floor Assessment SEMG (uV) Baseline 4.4 Quick Contraction 13.4 10 Second Contraction 11.1 Recruitment Pattern Good Relaxation Poor/Slow Holding Fair Stability of Hold Good SEMG Stability of Rest Fair Contraction Ability Voluntary Contraction Moderate Voluntary Relaxation Weak Manual Muscle Testing Left 3 Manual Muscle Testing Right 3 Manual Muscle Testing Anterior 3 Manual Muscle Testing Posterior 3 Muscle Endurance (Seconds) 3 Number of Quick Contractions In 10 9 Seconds Comments Pelvic Floor Comments 01/20/21: Quick Flicks 10 reps: Avg Max - see above, Avg Rest was 9.1 uV's. 20 reps: Avg Max 13.4 uV's, Avg Rest 8.9 uV's. Long Hold: 10 reps: Avg Max - see above, Avg Rest was 6.[address]: Above umbilicus: 3 above is 1.0 finger width very, very shallow. 2 above is 1.5 finger widths, shallow. 1 above is 2 finger widths. Below umbilicus: 1 is shallow 1.5 finger width , 2 is very shallow, mostly closed PT-OP-J Posture/Palpation/Skin Start: 05/09/20 21:10 Freq: Status: Active Protocol: Document 06/15/20 08:57 LRN (Rec: 06/15/20 18:37 LRN [id number]) Posture Evaluation Position Standing Evaluation View All positions Head/C-Spine Posture Side Bent Left L-Spine Posture Rotation Right,Increased Lordosis Shoulder Posture (L) Elevated Pelvis Posture Anteriorly Tilted Knee Posture (L) Genu Valgus,(R) Genu Valgus Foot Arch (L) No Arch,(R) No Arch PT-OP-K Range of Motion Start: 05/09/20 21:10 Freq: Status: Active Protocol: Document 06/17/20 10:36 LRN (Rec: 06/17/20 18:21 LRN [id number]) Hip Goniometric Range of Motion Hip Right Passive Testing Position Supine Internal Rotation 25 External Rotation 75 Left Passive Testing Position Supine Internal Rotation 40 External Rotation 80 PT-OP-M Strength Start: 05/09/20 21:10 Freq: Status: Active Protocol: Document 10/03/20 12:49 LRN (Rec: 10/03/20 13:43 LRN [id number]) Hip Strength Hip Manual Muscle Testing Right Flexion (L2) 4+ Good+ Abduction 5 Normal Adduction 4+ Good+ Comments hip Flex weak due to weakness of core of left rotators. Left Flexion (L2) 5 Normal Abduction 5 Normal Adduction 4+ Good+ PT-OP-Q Treatments Start: 05/09/20 21:10 Freq: Status: Active Protocol: Document 01/20/21 15:10 LRN (Rec: 01/20/21 16:35 LRN [id number]) Neuro Re-Education Treatment Other Activities PF training Details PF Quick Flicks/Long Holds with Relaxation training with contractions Reps/Duration 35' Biofeedback for PF awareness Details PF relaxation and awareness of max PF pushing stretching Reps/Duration 9' Self-Care/Home Management Treatment Education Other Education Discussed results of PF assessment and areas for pt to focus on (strengthening R lateral wall for long holds and relaxation of PF between contractions and gentle push stretch when PF feeling tight. Discussed pt to protect DR in area around umbilicus and reviewed proper transfers to protect DR from worsening. Activities Self-Care/Home Management Activities I/S pt in R side PF long holds with bridge/ball squeeze ( supplement with BKFO), or with hip AD with PF relaxation between exercises. PT-OP-T Assessment and Plan Start: 05/09/20 21:10 Freq: Status: Active Protocol: Document 01/20/21 15:10 LRN (Rec: 01/20/21 16:35 LRN [id number]) Physical Therapy Assessment Goals Five Impairment Decreased PF endurance of 5 sec's in supine Intermediate Goal (LTG) Improve PF endurance to 10 sec 's in supine. (01/20/21: Quick Flicks: 9 reps before fatigue on R lateral lara. Long Hold: 3 sec prior to fatigue at weakest) LTG Duration 05/02/21 (01/20/21: Improved Quick Flicks, Poor long hold on R lat wall) Four Impairment Decreased PF strength rated 2/ 5 in supine Intermediate Goal (LTG) Improve PF strength to 3/5 in supine. 01/20/21: L lateral wall is 3/ 5, R lateral wall is 3/5, Anterior is 3/5, Posterior is 3/5. (05/13/20 EVAL: L lateral wall is 2/5, R lateral wall is 0/5, Anterior is 0/5, Posterior is 1/5 LTG Duration 05/02/21 (01/20/21: MET GOAL) Three Impairment Poor core stability due to severe Diastasis Rectus. Short Term Goal (STG) Pt will be educated in proper transfers and use of K-tape to assist with DR closure through self management. STG Duration 05/27/20 (07/04/20: MET GOAL) Fly Setter Goal (LTG) Pt will demonstrate DR closure . 12/23/20: DR: Above umbilicus: 3 above is 1.0 finger width very shallow. 2 above is 1.0 finger widths, shallow at distal end. 1 above is 1.5 finger widths. Below umbilicus: 1 is shallow 1.0 finger width , 2 is very shallow 0.5 finger widths, mostly closed (Initial DR measurements: Above umbilicus: 5 above is closed at Xyphoid Process; 4 above is 1.5 finger widths; 3 above is 2.5 finger widths, 2 above is 3 finger widths, 1 above is 3.5 finger widths. Below umbilicus: 1 is 3.5 finger widths, 2 is 2.5 finger widths; 3 0.5 finger widths; 4 is closed) 01/20/21: DR: Above umbilicus: 3 above is 1.0 finger width very, very shallow. 2 above is 1.5 finger widths, shallow. 1 above is 2 finger widths. Below umbilicus: 1 is shallow 1.5 finger width , 2 is very shallow, mostly closed LTG Duration 05/02/21 (12/23/20: Progressing ) One Impairment Lacks self care HEP Intermediate Goal (LTG) Pt will be independent with a self care HEP to promote hip and core strength and PF mobility. LTG Duration 05/02/21 (12/09/20: Progressing) Assessment Summary Assessment PF endurance is good for Quick Flicks of 9 reps and Long Holds for all but R lateral wall is 3 secs. Her overall PF strength is normal at 5/5. She has core weakness, primarily with rotation and lateral flexors as well as Diastasis Rectus at worse around the umbilicus. She has been doing her PF exercises daily. Further therapy for core stability/closure of DR, increase of PF R lateral wall endurance with good PF resting tone, manual therapy to abdomen for closure of DR. Physical Therapy Plan Frequency and Duration Frequency of Treatment 1x/Week Plan of Care Start Date 10/28/20 Plan of Care End Date 05/02/21 Next Visit Focus/Plan Next Note Type Treatment Note Next Visit Plan 2 visits remaining, discuss POC. Focus on PF R Lateral wall long hold & core lateral trunk & rotators/TA strengthening (check lateral planks) & DR closure. Continue MFR release to Abdominal muscles (and Urachus ) to promote a decrease in DR. Progress trunk rotation strengthening to sit>stand. Monitor DR as core strengthening is progressed. Monitor EMG biofeedback for relaxation ability of PF after contraction. Occasionally monitor for Flicks to 10 on right side ( was 9 reps 01/20/21). EMG biofeedback awareness training for relaxation after long holds and quick flick contractions. Add to HEP: R hip AD strengthening & progressive core strengthening to decrease DR. Progress core stab with leg slide & progress TA strengthening of roll in/outs by adding resistance band and ball.
--- NOTE | 2021-02-03 16:11 | PT.OTN ---
Current Diagnoses Other specified disorders of muscle (02/03/21) Stress incontinence (female) (male) (02/03/21) Abnormal posture (02/03/21) Physical Therapy Treatment Note PT-OP-A Visit Information Start: 05/09/20 21:10 Freq: Status: Active Protocol: Document 02/03/21 13:33 LRN (Rec: 02/03/21 14:25 LRN [id number]) Out-Patient Physical Therapy Visit Information Visit Information Visit Type Treatment Note Visit Note 5 after PN Visit Start Time 13:33 Visit Stop Time 14:21 Total Visit Minutes 48 Visit Number 23 Evaluation Information Evaluation Date 05/13/20 Precautions Precautions None PT-OP-B Current Condition Start: 05/09/20 21:10 Freq: Status: Active Protocol: Document 05/13/20 08:57 LRN (Rec: 05/13/20 09:52 LRN [id number]) Current Condition History of Current Condition Onset Date 06/2018 History of Current Condition Childbirth of son in 04/2018 with a lot of tearing. Currently notices leakage with strong urge while trying to get into her house and after running. Sometimes she leaks during running, but mainly immediately afterwards. She is running 2x/week for 2-3 miles (1/2 hour). Was occasionally running before (2-3x/month, 1-2 miles). Denies constipation and denies leakage with cough or sneeze or activity when no urge is present. Leakage only with strong urge, Prior Treatments and Tests None Developmental History Developmental History See above Treatment Goals Patient/Caregiver Goals Goal is to have more control of her urine and to not wet underwear when trying to control urine. Prior Functional Status Baseline Function- ADL's Independent Baseline Function- Mobility Independent Baseline Function- Recreation/Hobbies Ran 2-3x/month, 1-2 mile runs. Current Functional Impairments (Reported) Functional Limitations- ADL's Unable to control urine with a strong urge. 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 Functional Limitations- Recreation/ Trickle of urinary leakage Hobbies during running and not able to maintain continence after running or if drinking water after running. 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 Stopped 2 weeks ago, milk production still present. PT-OP-C Subjective Start: 05/09/20 21:10 Freq: Status: Active Protocol: Document 02/03/21 13:33 LRN (Rec: 02/03/21 14:25 LRN [id number]) OP-PT Subjective Patient Comments Patient Comments Did Happy Baby pose and hip AB leg lifts. Stressed this week and not able to work on PF relaxation. No leakage. PT-OP-G Mobility & Gait Start: 05/09/20 21:10 Freq: Status: Active Protocol: Document 05/13/20 08:57 LRN (Rec: 05/13/20 18:37 LRN [id number]) OP Mobility Evaluation Transfers Bed to Chair Transfers Transfers to supine by lying straight back and to sitting by a sit up motion. PT-OP-I Pelvic Floor Start: 05/09/20 21:10 Freq: Status: Active Protocol: Document 02/03/21 13:33 LRN (Rec: 02/03/21 14:25 LRN [id number]) Pelvic Floor Assessment Comments Pelvic Floor Comments 02/03/21: DR: Above umbilicus: 3 above is 1.0 finger width very, very shallow. 2 above is 1.0 finger widths, shallow at distal end. 1 above is 1.5 finger widths. Below umbilicus: 1 is very shallow 1.0 finger width, 2 closed PT-OP-J Posture/Palpation/Skin Start: 05/09/20 21:10 Freq: Status: Active Protocol: Document 05/13/20 08:57 LRN (Rec: 05/13/20 18:37 LRN [id number]) Posture Evaluation Position Standing Evaluation View All positions Head/C-Spine Posture Side Bent Left L-Spine Posture Rotation Right,Increased Lordosis Shoulder Posture (L) Elevated Pelvis Posture Anteriorly Tilted Knee Posture (L) Genu Valgus,(R) Genu Valgus Foot Arch (L) No Arch,(R) No Arch PT-OP-K Range of Motion Start: 05/09/20 21:10 Freq: Status: Active Protocol: Document 06/17/20 10:36 LRN (Rec: 06/17/20 18:21 LRN [id number]) Hip Goniometric Range of Motion Hip Right Passive Testing Position Supine Internal Rotation 25 External Rotation 75 Left Passive Testing Position Supine Internal Rotation 40 External Rotation 80 PT-OP-M Strength Start: 05/09/20 21:10 Freq: Status: Active Protocol: Document 10/03/20 12:49 LRN (Rec: 10/03/20 13:43 LRN [id number]) Hip Strength Hip Manual Muscle Testing Right Flexion (L2) 4+ Good+ Abduction 5 Normal Adduction 4+ Good+ Comments hip Flex weak due to weakness of core of left rotators. Left Flexion (L2) 5 Normal Abduction 5 Normal Adduction 4+ Good+ PT-OP-Q Treatments Start: 05/09/20 21:10 Freq: Status: Active Protocol: Document 02/03/21 13:33 LRN (Rec: 02/03/21 14:25 LRN [id number]) Therapeutic Exercises Supine Exercises TA/Reverse leg lift Supine Exercise Name TA/Reverse Leg lift (focus on core stab w/R leg lifts) Side bilateral Reps/Minutes 6' Comments self phy cuing to keep pelvis from R rotating. Training for pelvic L rot. TA Supine Exercise Name TA strengthening for focus on upper torso Reps/Minutes 8' Comments DR measurements taken Sidelying Exercises TA Sidelying Exercise Name TA strengthening for focus on upper torso Side bilateral Reps/Minutes 6' Sitting Exercises TA Sitting Exercise Name TA strengthening for focus on upper torso Reps/Minutes 4' Neuro Re-Education Treatment Other Activities PF training Details PF Long Holds w/relaxation training with resistance Reps/Duration 25' Self-Care/Home Management Treatment Education Patient Education Home Exercise Program Activities Self-Care/Home Management Activities I/S pt in HEP: TA with focus on upper core, and PF strengthening, emphasis with resistance on R side. PT-OP-T Assessment and Plan Start: 05/09/20 21:10 Freq: Status: Active Protocol: Document 02/03/21 13:33 LRN (Rec: 02/03/21 14:25 LRN [id number]) Physical Therapy Assessment Goals Five Impairment Decreased PF endurance of 5 sec's in supine Fpc Goal (LTG) Improve PF endurance to 10 sec 's in supine. (01/20/21: Quick Flicks: 9 reps before fatigue on R lateral lara. Long Hold: 3 sec prior to fatigue at weakest) LTG Duration 05/02/21 (01/20/21: Improved Quick Flicks, Poor long hold on R lat wall) Four Impairment Decreased PF strength rated 2/ 5 in supine Grinder Set Up Operator Jig Goal (LTG) Improve PF strength to 3/5 in supine. 01/20/21: L lateral wall is 3/ 5, R lateral wall is 3/5, Anterior is 3/5, Posterior is 3/5. (05/13/20 EVAL: L lateral wall is 2/5, R lateral wall is 0/5, Anterior is 0/5, Posterior is 1/5 LTG Duration 05/02/21 (01/20/21: MET GOAL) Three Impairment Poor core stability due to severe Diastasis Rectus. Short Term Goal (STG) Pt will be educated in proper transfers and use of K-tape to assist with DR closure through self management. STG Duration 05/27/20 (07/04/20: MET GOAL) Fpc Goal (LTG) Pt will demonstrate DR closure . 12/23/20: DR: Above umbilicus: 3 above is 1.0 finger width very shallow. 2 above is 1.0 finger widths, shallow at distal end. 1 above is 1.5 finger widths. Below umbilicus: 1 is shallow 1.0 finger width , 2 is very shallow 0.5 finger widths, mostly closed (Initial DR measurements: Above umbilicus: 5 above is closed at Xyphoid Process; 4 above is 1.5 finger widths; 3 above is 2.5 finger widths, 2 above is 3 finger widths, 1 above is 3.5 finger widths. Below umbilicus: 1 is 3.5 finger widths, 2 is 2.5 finger widths; 3 0.5 finger widths; 4 is closed) 01/20/21: DR: Above umbilicus: 3 above is 1.0 finger width very, very shallow. 2 above is 1.5 finger widths, shallow. 1 above is 2 finger widths. Below umbilicus: 1 is shallow 1.5 finger width , 2 is very shallow, mostly closed LTG Duration 05/02/21 (12/23/20: Progressing ) One Impairment Lacks self care HEP Fpc Goal (LTG) Pt will be independent with a self care HEP to promote hip and core strength and PF mobility. (02/03/21: I/S in TA with focus on upper core, and PF strengthening with focus on R side) LTG Duration 05/02/21 (02/03/21: Progressing) Progress Towards Goals Progress Comments DR improved inferior to umbilicus. Progressed home program. Assessment Summary Assessment Pt DR becoming less deep and closer to closure inferior to umbilicus. Improved awareness of upper core TA strengthening (above umbilicus ) after training. Pt is weak with pelvic L rotation and R side of PF. Physical Therapy Plan Frequency and Duration Frequency of Treatment 1x/Week Plan of Care Start Date 10/28/20 Plan of Care End Date 05/02/21 Next Visit Focus/Plan Next Note Type Treatment Note Next Visit Plan 1 visit remaining, discuss need for further therapy. Manual assessment of PF (R Lateral wall long hold). Add to HEP core lateral trunk & rotators (w/TA) sitting and standing strengthening. Check lateral planks & monitor for DR closure. Check if needed MFR release to Abdominal muscles (and Urachus) to promote a decrease in DR. Monitor EMG biofeedback for relaxation ability of PF after contraction. Occasionally monitor for Quick Flicks to 10 on right side ( was 9 reps 01/20/21). EMG biofeedback awareness training for relaxation after long holds and quick flick contractions. Add to HEP: R hip AD strengthening & progressive core strengthening to decrease DR. Progress core stab with leg slide & progress TA strengthening of roll in/outs by adding resistance band and ball.
--- NOTE | 2021-02-17 16:27 | PT.OTN ---
Current Diagnoses Other specified disorders of muscle (02/17/21) Stress incontinence (female) (male) (02/17/21) Abnormal posture (02/17/21) Physical Therapy Treatment Note PT-OP-A Visit Information Start: 05/09/20 21:10 Freq: Status: Active Protocol: Document 02/17/21 15:02 LRN (Rec: 02/17/21 16:25 LRN [id number]) Out-Patient Physical Therapy Visit Information Visit Information Visit Type Discharge Summary Visit Note 6 after PN Visit Start Time 15:02 Visit Stop Time 15:53 Total Visit Minutes 51 Visit Number 24 Evaluation Information Evaluation Date 05/13/20 Precautions Precautions None PT-OP-B Current Condition Start: 05/09/20 21:10 Freq: Status: Active Protocol: Document 05/13/20 08:57 LRN (Rec: 05/13/20 09:52 LRN [id number]) Current Condition History of Current Condition Onset Date 06/2018 History of Current Condition Childbirth of son in 04/2018 with a lot of tearing. Currently notices leakage with strong urge while trying to get into her house and after running. Sometimes she leaks during running, but mainly immediately afterwards. She is running 2x/week for 2-3 miles (1/2 hour). Was occasionally running before (2-3x/month, 1-2 miles). Denies constipation and denies leakage with cough or sneeze or activity when no urge is present. Leakage only with strong urge, Prior Treatments and Tests None Developmental History Developmental History See above Treatment Goals Patient/Caregiver Goals Goal is to have more control of her urine and to not wet underwear when trying to control urine. Prior Functional Status Baseline Function- ADL's Independent Baseline Function- Mobility Independent Baseline Function- Recreation/Hobbies Ran 2-3x/month, 1-2 mile runs. Current Functional Impairments (Reported) Functional Limitations- ADL's Unable to control urine with a strong urge. 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 Functional Limitations- Recreation/ Trickle of urinary leakage Hobbies during running and not able to maintain continence after running or if drinking water after running. 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 Stopped 2 weeks ago, milk production still present. PT-OP-C Subjective Start: 05/09/20 21:10 Freq: Status: Active Protocol: Document 02/17/21 15:02 LRN (Rec: 02/17/21 16:25 LRN [id number]) OP-PT Subjective Patient Comments Patient Comments Doing TA's during the day. PT-OP-G Mobility & Gait Start: 05/09/20 21:10 Freq: Status: Active Protocol: Document 05/13/20 08:57 LRN (Rec: 05/13/20 18:37 LRN [id number]) OP Mobility Evaluation Transfers Bed to Chair Transfers Transfers to supine by lying straight back and to sitting by a sit up motion. PT-OP-I Pelvic Floor Start: 05/09/20 21:10 Freq: Status: Active Protocol: Document 02/17/21 15:02 LRN (Rec: 02/17/21 16:25 LRN [id number]) Pelvic Floor Assessment SEMG (uV) Baseline 2.3 Quick Contraction 10.2 10 Second Contraction 5.7 Recruitment Pattern Good Relaxation Fair Contraction Ability Voluntary Contraction Moderate Voluntary Relaxation Weak Manual Muscle Testing Left 3 Manual Muscle Testing Right 3 Manual Muscle Testing Anterior 3 Manual Muscle Testing Posterior 3 Muscle Endurance (Seconds) 3 Number of Quick Contractions In 10 9 Seconds Comments Pelvic Floor Comments 02/17/21: PF strength is slightly decreased at PF clock 2 02/17/21: Quick Flicks 10 reps: Avg Max - see above. 20 reps: Avg Work 9.5 uV's, Avg Rest 5.2 uV 's. Long Hold: 10 reps: Avg Max - see above, Avg Rest was 3.1 uV's; 20 reps: Avg Work 5.5 UV's, Avg Rest 2.[address]: Above umbilicus: 3 above is 1.0 finger width very, very shallow. 2 above is 1.0 finger widths, shallow at distal end. 1 above is 1.5 finger widths. Below umbilicus: 1 is very shallow 1.0 finger width, 2 closed PT-OP-J Posture/Palpation/Skin Start: 05/09/20 21:10 Freq: Status: Active Protocol: Document 05/13/20 08:57 LRN (Rec: 05/13/20 18:37 LRN [id number]) Posture Evaluation Position Standing Evaluation View All positions Head/C-Spine Posture Side Bent Left L-Spine Posture Rotation Right,Increased Lordosis Shoulder Posture (L) Elevated Pelvis Posture Anteriorly Tilted Knee Posture (L) Genu Valgus,(R) Genu Valgus Foot Arch (L) No Arch,(R) No Arch PT-OP-K Range of Motion Start: 05/09/20 21:10 Freq: Status: Active Protocol: Document 06/17/20 10:36 LRN (Rec: 06/17/20 18:21 LRN [id number]) Hip Goniometric Range of Motion Hip Right Passive Testing Position Supine Internal Rotation 25 External Rotation 75 Left Passive Testing Position Supine Internal Rotation 40 External Rotation 80 PT-OP-M Strength Start: 05/09/20 21:10 Freq: Status: Active Protocol: Document 10/03/20 12:49 LRN (Rec: 10/03/20 13:43 LRN [id number]) Hip Strength Hip Manual Muscle Testing Right Flexion (L2) 4+ Good+ Abduction 5 Normal Adduction 4+ Good+ Comments hip Flex weak due to weakness of core of left rotators. Left Flexion (L2) 5 Normal Abduction 5 Normal Adduction 4+ Good+ PT-OP-Q Treatments Start: 05/09/20 21:10 Freq: Status: Active Protocol: Document 02/17/21 15:02 LRN (Rec: 02/17/21 16:25 LRN [id number]) Therapeutic Exercises Supine Exercises TA Supine Exercise Name TA Head lifts Reps/Minutes 10' Comments DR measurements taken Neuro Re-Education Treatment Other Activities Biofeedback for PF awareness Details PF contractions & relaxation for Quick Flicks & Long holds Reps/Duration 30' Self-Care/Home Management Treatment Education Other Education Pt education in self- determining of TA holding loss by awareness of abdominal bulging with activities. Activities Self-Care/Home Management Activities Reviewed HEP: Lateral Plank ex, TA with trunk rotation and proper breathing with exercise, Supine: TA strengthening of isometrics ( flex/rot) and with leg lifts off wall. PT-OP-T Assessment and Plan Start: 05/09/20 21:10 Freq: Status: Active Protocol: Document 02/17/21 15:02 LRN (Rec: 02/17/21 16:25 LRN [id number]) Physical Therapy Assessment Goals Five Impairment Decreased PF endurance of 5 sec's in supine It Data Architect Goal (LTG) Improve PF endurance to 10 sec 's in supine. (02/17/21: Quick Flicks: 10 reps before fatigue on R lateral lara. Long Hold: Overall pt is able to hold a 10 sec PF contraction at least 1 rep, not assessed for R wall alone). LTG Duration 05/02/21 (01/20/21: Improved Quick Flicks, ?Long hold on R lat wall) Four Impairment Decreased PF strength rated 2/ 5 in supine Mcfp Goal (LTG) Improve PF strength to 3/5 in supine. 01/20/21: L lateral wall is 3/ 5, R lateral wall is 3/5, Anterior is 3/5, Posterior is 3/5. (05/13/20 EVAL: L lateral wall is 2/5, R lateral wall is 0/5, Anterior is 0/5, Posterior is 1/5 LTG Duration 05/02/21 (01/20/21: MET GOAL) Three Impairment Poor core stability due to severe Diastasis Rectus. Short Term Goal (STG) Pt will be educated in proper transfers and use of K-tape to assist with DR closure through self management. STG Duration 05/27/20 (07/04/20: MET GOAL) It Data Architect Goal (LTG) Pt will demonstrate DR closure . 02/17/21: DR: Above umbilicus: 3 above is 1.0 finger width very shallow. 2 above is 1.5 finger widths, shallow at distal end. 1 above is 1.5 finger widths. Below umbilicus: 1 is shallow 1.5 finger width , 2 is very shallow 0.5 finger widths, mostly closed (Initial DR measurements: Above umbilicus: 5 above is closed at Xyphoid Process; 4 above is 1.5 finger widths; 3 above is 2.5 finger widths, 2 above is 3 finger widths, 1 above is 3.5 finger widths. Below umbilicus: 1 is 3.5 finger widths, 2 is 2.5 finger widths; 3 0.5 finger widths; 4 is closed) 01/20/21: DR: Above umbilicus: 3 above is 1.0 finger width very, very shallow. 2 above is 1.5 finger widths, shallow. 1 above is 2 finger widths. Below umbilicus: 1 is shallow 1.5 finger width , 2 is very shallow, mostly closed LTG Duration 05/02/21 (02/17/21: Slightly worse 2 above & 1 below umbilicus) One Impairment Lacks self care HEP Mcfp Goal (LTG) Pt will be independent with a self care HEP to promote hip and core strength and PF mobility. (02/03/21: I/S in TA with focus on upper core, and PF strengthening with focus on R side) LTG Duration 05/02/21 (02/03/21: Progressing) Progress Towards Goals Progress Comments Progressed HEP for pt to increase TA strengthening exercises with proper breathing technique. Assessment Summary Assessment DR is slightly worse 1 below umbilicus and 2 above umbilicus. Rectus abdominus if more palpable with head lift. PF strength is good with lift felt upon contractioin around the PF clock. Per EMG biofeedback she demonstrated decreased PF strength of contraction from last session but improved isolation of PF contraction. Electrode fell out 1x during a relaxation. Pt appeared to be able to perform 10 Quick Flicks on right side (was 9 reps 01/20/21). Not able to assess side plank due to time contraint, but pt verbally described properly side plank ex. Physical Therapy Plan Frequency and Duration Frequency of Treatment 1x/Week Plan of Care Start Date 10/28/20 Plan of Care End Date 05/02/21 Next Visit Focus/Plan Next Note Type Treatment Note Next Visit Plan Assess PUF. 1 visit remaining, possible DC , discuss POC if improvement noted or DC if no improvement. Pt to focus on improving TA strength with lessening of DR. She is to cont PF strengthening with relaxation phase evident. Review lateral plank ex. Add to HEP: R hip AD strengthening & progressive core strengthening to decrease DR. Progress core stab with leg slide & progress TA strengthening of roll in/outs by adding resistance band and ball. Review HEP core lateral trunk & rotators (w/TA) sitting and standing strengthening (issue HEP). Monitor for DR closure. Check if needed MFR release to Abdominal muscles (and Urachus) to promote a decrease in DR. EMG biofeedback for training of relaxation ability after PF contraction after long holds and quick flick contractions.
--- NOTE | 2021-03-03 16:52 | PT.OTN ---
Current Diagnoses Other specified disorders of muscle (03/03/21) Stress incontinence (female) (male) (03/03/21) Abnormal posture (03/03/21) Physical Therapy Treatment Note PT-OP-A Visit Information Start: 05/09/20 21:10 Freq: Status: Active Protocol: Document 03/03/21 13:40 LRN (Rec: 03/03/21 14:22 LRN [id number]) Out-Patient Physical Therapy Visit Information Visit Information Visit Type Treatment Note Visit Start Time 13:40 Visit Stop Time 14:19 Total Visit Minutes 39 Visit Number 25 Evaluation Information Evaluation Date 05/13/20 Precautions Precautions None PT-OP-B Current Condition Start: 05/09/20 21:10 Freq: Status: Active Protocol: Document 05/13/20 08:57 LRN (Rec: 05/13/20 09:52 LRN [id number]) Current Condition History of Current Condition Onset Date 06/2018 History of Current Condition Childbirth of son in 04/2018 with a lot of tearing. Currently notices leakage with strong urge while trying to get into her house and after running. Sometimes she leaks during running, but mainly immediately afterwards. She is running 2x/week for 2-3 miles (1/2 hour). Was occasionally running before (2-3x/month, 1-2 miles). Denies constipation and denies leakage with cough or sneeze or activity when no urge is present. Leakage only with strong urge, Prior Treatments and Tests None Developmental History Developmental History See above Treatment Goals Patient/Caregiver Goals Goal is to have more control of her urine and to not wet underwear when trying to control urine. Prior Functional Status Baseline Function- ADL's Independent Baseline Function- Mobility Independent Baseline Function- Recreation/Hobbies Ran 2-3x/month, 1-2 mile runs. Current Functional Impairments (Reported) Functional Limitations- ADL's Unable to control urine with a strong urge. 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 Functional Limitations- Recreation/ Trickle of urinary leakage Hobbies during running and not able to maintain continence after running or if drinking water after running. 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 Stopped 2 weeks ago, milk production still present. PT-OP-C Subjective Start: 05/09/20 21:10 Freq: Status: Active Protocol: Document 03/03/21 13:40 LRN (Rec: 03/03/21 14:22 LRN [id number]) OP-PT Subjective Patient Comments Patient Comments No more leaking. Still working on PF strength. PT-OP-G Mobility & Gait Start: 05/09/20 21:10 Freq: Status: Active Protocol: Document 05/13/20 08:57 LRN (Rec: 05/13/20 18:37 LRN [id number]) OP Mobility Evaluation Transfers Bed to Chair Transfers Transfers to supine by lying straight back and to sitting by a sit up motion. PT-OP-I Pelvic Floor Start: 05/09/20 21:10 Freq: Status: Active Protocol: Document 03/03/21 13:40 LRN (Rec: 03/06/21 11:29 LRN [id number]) Pelvic Floor Assessment SEMG (uV) Baseline 0.9 10 Second Contraction 11.1 Comments Pelvic Floor Comments Long Hold: 10 reps: Avg Max - see above, Avg Rest was 4.7 uV's; 20 reps: Avg Work 10. 3 UV's, Avg Rest 4.[address]: Above umbilicus: 3 above is 1.0 finger width very, very shallow. 2 above is 1.0 finger widths, shallow at distal end. 1 above is 1.5 finger widths. Below umbilicus: 1 is very shallow 1.0 finger width, 2 closed PT-OP-J Posture/Palpation/Skin Start: 05/09/20 21:10 Freq: Status: Active Protocol: Document 05/13/20 08:57 LRN (Rec: 05/13/20 18:37 LRN [id number]) Posture Evaluation Position Standing Evaluation View All positions Head/C-Spine Posture Side Bent Left L-Spine Posture Rotation Right,Increased Lordosis Shoulder Posture (L) Elevated Pelvis Posture Anteriorly Tilted Knee Posture (L) Genu Valgus,(R) Genu Valgus Foot Arch (L) No Arch,(R) No Arch PT-OP-K Range of Motion Start: 05/09/20 21:10 Freq: Status: Active Protocol: Document 06/17/20 10:36 LRN (Rec: 06/17/20 18:21 LRN [id number]) Hip Goniometric Range of Motion Hip Right Passive Testing Position Supine Internal Rotation 25 External Rotation 75 Left Passive Testing Position Supine Internal Rotation 40 External Rotation 80 PT-OP-M Strength Start: 05/09/20 21:10 Freq: Status: Active Protocol: Document 10/03/20 12:49 LRN (Rec: 10/03/20 13:43 LRN [id number]) Hip Strength Hip Manual Muscle Testing Right Flexion (L2) 4+ Good+ Abduction 5 Normal Adduction 4+ Good+ Comments hip Flex weak due to weakness of core of left rotators. Left Flexion (L2) 5 Normal Abduction 5 Normal Adduction 4+ Good+ PT-OP-Q Treatments Start: 05/09/20 21:10 Freq: Status: Active Protocol: Document 03/03/21 13:40 LRN (Rec: 03/03/21 14:22 LRN [id number]) Therapeutic Exercises Supine Exercises PF contractions Supine Exercise Name PF contractions Long Holds & Quick Flicks Equipment Used Vaginal sensor Reps/Minutes 25' Comments Pt req'd rest between sets of contractions. Self-Care/Home Management Treatment Education Patient Education Home Exercise Program Other Education Discussed PF relaxation, home program, PF strengthening with various activities and handouts (current & previous) Activities Self-Care/Home Management Activities Reviewed HEP: PF & core strengthening. PT-OP-T Assessment and Plan Start: 05/09/20 21:10 Freq: Status: Active Protocol: Document 03/03/21 13:40 LRN (Rec: 03/03/21 14:22 LRN [id number]) Physical Therapy Assessment Goals Six Impairment Poor knowledge of proper transfers and clothing wear to minimize UI. Short Term Goal (STG) Pt will be educated in proper transfers and clothing to minimize onset of Urinary Incontinence. STG Duration 05/21/20 (05/27/20: MET GOAL) Five Impairment Decreased PF endurance of 5 sec's in supine Nursing Home Goal (LTG) Improve PF endurance to 10 sec 's in supine. (03/06/21: LONG HOLD: Overall pt is able to hold a 10 sec PF contraction for 10 reps using visual biofeedback). LTG Duration 05/02/21 (03/03/21: MET GOAL) Four Impairment Decreased PF strength rated 2/ 5 in supine Medical Observer Goal (LTG) Improve PF strength to 3/5 in supine. 01/20/21: L lateral wall is 3/ 5, R lateral wall is 3/5, Anterior is 3/5, Posterior is 3/5. (05/13/20 EVAL: L lateral wall is 2/5, R lateral wall is 0/5, Anterior is 0/5, Posterior is 1/5 LTG Duration 05/02/21 (01/20/21: MET GOAL) Three Impairment Poor core stability due to severe Diastasis Rectus. Short Term Goal (STG) Pt will be educated in proper transfers and use of K-tape to assist with DR closure through self management. STG Duration 05/27/20 (07/04/20: MET GOAL) Nursing Home Goal (LTG) Pt will demonstrate DR closure . Above umbilicus: 3 above is 1.0 finger width very, very shallow. 2 above is 1.0 finger widths, shallow at distal end. 1 above is 1.5 finger widths. Below umbilicus: 1 is very shallow 1.0 finger width, 2 closed (Initial DR measurements: Above umbilicus: 5 above is closed at Xyphoid Process; 4 above is 1.5 finger widths; 3 above is 2.5 finger widths, 2 above is 3 finger widths, 1 above is 3.5 finger widths. Below umbilicus: 1 is 3.5 finger widths, 2 is 2.5 finger widths; 3 0.5 finger widths; 4 is closed) LTG Duration 05/02/21 (03/03/21: NOT MET GOAL . No significant change from last session) Two Impairment Poor management of Urge incontinence Short Term Goal (STG) Pt will be educated in Urge incontinence and bladder retraining. STG Duration GOAL MET. Nursing Home Goal (LTG) Pt will be able to make it to the bathroom at work and home with minimal to no urinary leakage. (06/14/20: No leakage since last session). LTG Duration 07/26/20 (06/17/20: MET GOAL) One Impairment Lacks self care HEP Nursing Home Goal (LTG) Pt will be independent with a self care HEP to promote hip and core strength and PF mobility. LTG Duration 05/02/21 (03/03/21: MET GOAL) Progress Towards Goals Progress Comments STG #5 MET. Improved PF endurance to 10 sec's in supine > 10 reps. All Goals met except LTG #3 due to opening of DR still present. Assessment Summary Assessment PF endurance has improved, as well as he PF strength of contraction. She no longer is experiencing urinary leakage symptoms, but still demonstrates a diastasis recti (DR). She will continue to monitor and work towards DR closure. The pt is ready to continues on her independent self care HEP. Physical Therapy Plan Discharge Physical Therapy Discharge Comments Pt improved in her pelvic strength and coordination of contraction overall and her urinary leakage symptoms have resolved. The pt will need to continue with PF strengthening and working to reduce her Diastasis Recti in order to maintain core stability.
== END 2021-03-07 08:04 | disposition home or self-care (01) ==
LOC: PHYS 13:30
PROVIDERS: PCP Family Medicine
DX: N39.3 Stress incontinence (female) (male) (principal); M62.89 Other specified disorders of muscle; R29.3 Abnormal posture
CPT/HCPCS: 97110; 97112; 97140; 97162; 97530; 97535